=== PATIENT | male | born 1935 | race Caucasian/White ===

== ENCOUNTER 2019-06-19 08:45 | Outpatient (RCR) | payer MEDICARE, OTHER, SELFPAY ==
--- NOTE | 2019-06-19 08:50 | USCV_ITS ---
LatriciaAndi dumont Age: 84 Gender: M : 1935 Exam Date: 06/19/2019 09:12 Ordering Phys: Josefina Braga Technologist: Miller Hawkins [place]am [place] [facility] [place]: HISTORY: PROCEDURES: Bilateral duplex Venous Insufficiency study of the Deep and Superficial systems was carried out according to normal protocol with the patient in supine positon for deep system and dependent position for the superficial system. FINDINGS: All deep veins demonstrated compressibility without evidence of intraluminal thrombus or increased echogenicity. Spectral analysis of Doppler signals demonstrates normal response to compression maneuvers indicating patency without obstruction. Reflux determinations were made with the patient in the dependent position, the weight being on the contralateral leg. Vein measurements and reflux times are listed below were applicable. THERE IS SIGNIFICANT DEEP VEIN REFLUX IN THE BOTH LEGS. THERE IS SIGNIFICANT REFLUX IN LT GSAPH BUT VEINS ARE TO SMALL TO PASS ABLATION CATHITER CONCLUSIONS 1. Significant venous reflux of greater than 1000 ms were noted at the femoral and popliteal veins bilaterally. 2. Significant venous reflux of greater than 500 ms were noted at the left saphenofemoral junction and below-knee greater saphenous vein segments. 3. Small to medium caliber vein bilaterally 4. The reflux time, depth from the surface and the venous dimensions as mentioned above Dr Edilia Oseguera MD [facility] (Electronically Signed) Final Date: 19 June 2019 17:52 S
== END 2019-06-19 23:59 | disposition home or self-care (01) ==
LOC: RAD 08:45
PROVIDERS: Family Provider Family Medicine; PCP Family Medicine; Visit Provider Nurse Practitioner Family
DX: I87.2 Venous insufficiency (chronic) (peripheral) (principal); L97.312 Non-pressure chronic ulcer of right ankle with fat layer exposed; M79.604 Pain in right leg; M79.605 Pain in left leg
CPT/HCPCS: 93970; 99204; G0463

== ENCOUNTER 2019-06-22 08:37 | Outpatient (CLI) | payer MEDICARE, OTHER, SELFPAY ==
--- NOTE | 2019-06-22 08:52 | USCV_ITS ---
Andi Rome Age: 84 Gender: M : 1935 Exam Date: 06/22/2019 08:48 Ordering Phys: Josefina Braga RN Technologist: Exam [place] [facility] [place]ication: PAIN REDNESS NON HEALING ULCER RIGHT LEFT Brachial 166.00 mmHg Brachial 174.00 mmHg FINDINGS Supernormal resting ABIs and TBIs bilaterally PVR waveforms showing blunting of the dicrotic notch CONCLUSIONS Features suggesting extensive arterial sclerosis No significant arterial obstruction Dr Edilia Oseguera MD [facility] (Electronically Signed) Final Date: 22 June 2019 20:53 S
== END 2019-06-22 08:38 | disposition home or self-care (01) ==
LOC: RAD 08:43
PROVIDERS: Family Provider Family Medicine; PCP Family Medicine; Visit Provider Nurse Practitioner Family
DX: R52 Pain, unspecified (principal); L53.9 Erythematous condition, unspecified; L98.499 Non-pressure chronic ulcer of skin of other sites with unspecified severity
CPT/HCPCS: 93923

== ENCOUNTER 2019-07-15 08:48 | Outpatient (RCR) | payer MEDICARE, OTHER, SELFPAY | END 2019-07-18 23:59 | disposition home or self-care (01) | LOC: WOUND 08:48 | PROVIDERS: Family Provider Family Medicine; PCP Family Medicine; Visit Provider Nurse Practitioner Family | DX: I87.2 Venous insufficiency (chronic) (peripheral) (principal); L97.312 Non-pressure chronic ulcer of right ankle with fat layer exposed | CPT/HCPCS: 11042; 29581; 87070; 87077; 87176; 87186; 87205; 99214 ==

== ENCOUNTER 2019-08-13 08:33 | Outpatient (RCR) | payer MEDICARE, OTHER, SELFPAY | END 2019-08-18 23:59 | disposition home or self-care (01) | LOC: WOUND 08:33 | PROVIDERS: Family Provider Family Medicine; PCP Family Medicine; Visit Provider Nurse Practitioner Family | DX: L97.819 Non-pressure chronic ulcer of other part of right lower leg with unspecified severity (principal) | CPT/HCPCS: 11055; 29581; 99211; 99213; 99214; A6545; G0463 ==

== ENCOUNTER → 2019-08-20 14:34 | Outpatient (BNVA) | payer MEDICARE, OTHER, SELFPAY | PROVIDERS: Family Provider Family Medicine; PCP Family Medicine; Visit Provider Urology | DX: R33.9 Retention of urine, unspecified (principal); N39.0 Urinary tract infection, site not specified; N99.114 Postprocedural urethral stricture, male, unspecified | CPT/HCPCS: 81001 ==

== ENCOUNTER 2019-08-27 08:29 | Outpatient (RCR) | payer MEDICARE, OTHER, SELFPAY | END 2019-09-17 23:59 | disposition home or self-care (01) | LOC: WOUND 08:29 | PROVIDERS: Family Provider Family Medicine; PCP Family Medicine; Visit Provider Nurse Practitioner Family | DX: Z09 Encounter for follow-up examination after completed treatment for conditions other than malignant neoplasm (principal) | CPT/HCPCS: 99212 ==

== ENCOUNTER 2019-09-14 06:25 | Emergency (ER) | payer MEDICARE, OTHER, SELFPAY ==
[2019-09-14 06:33] VITALS: BP 155/88; PULSE 77; RESP 16; TEMP 36.5; O2SAT 99; BMI 30.5
--- NOTE | 2019-09-14 06:44 | W.ED.FALL ---
HPI - Fall General: Chief Complaint: Fall Stated Complaint: FALL, LAC TO RIGHT ARM Time Seen by Provider: 09/14/19 06:40 History of Present Illness: HPI Narrative: 84 yo male comes in today after falling out of bed. He was trying to get out of bed and got caught up in the sheets states he was tangled and he fell his left arm hit and nightstand adjacent to the bed and he has a skin tear on it he is on Coumadin. He was rechecked about 1 week ago and said it was normal he made no adjustments at that time he did not strike his head he did not lose consciousness he denies any other injuries besides the skin tear on the left forearm. He is unsure of his last tetanus shot. Associated symptoms-after fall: Denies abdominal pain or chest pain Review of Systems Const: Denies: fever, chills, body aches, change in appetite, fatigue or malaise ENMT: Denies: throat pain, ear pain, nasal discharge or nasal congestion Card: Denies: chest pain, edema, shortness of breath on exertion or shortness of breath when lying down Resp: Denies: shortness of breath, productive cough or non-productive cough GI: Denies: abdominal pain, nausea, vomiting, vomiting blood, coffee grounds in vomit, diarrhea, constipation, bloating, blood in stool or black tarry stool : Denies: flank pain, painful urination, urinary frequency or urinary urgency Skin/Breast: Denies: rash or itching PFS ED PFSH: Social History Smoking and tobacco status: never smoked Alcohol intake: never Marital status: Current occupational status: retired History of recent travel: No Physical Exam Const: COMMON NORMALS: no apparent distress GENERAL APPEARANCE: cooperative and comfortable ORIENTATION/CONSCIOUSNESS: Yes awake, Yes oriented to person, Yes oriented to place and Yes oriented to time HENMT: COMMON NORMALS: normocephalic, head/scalp atraumatic, hearing grossly normal bilaterally, external ears normal, EAC's normal, TM's normal bilaterally, nasal mucous membranes and turbinates normal, moist oral mucous membranes and oropharynx normal HEAD & SCALP: normocephalic and atraumatic NOSE: nasal mucous membranes and turbinates normal EXTERNAL EAR: Yes external ears normal EXTERNAL AUDITORY CANAL: EAC's normal TYMPANIC MEMBRANE: TM's normal bilaterally Eye: COMMON NORMALS: PERRL, EOMs intact bilaterally, conjunctivae normal and no scleral icterus CONJUNCTIVA: Yes conjunctivae normal PUPIL: Yes PERRL Neck/C-Spine: COMMON NORMALS: full ROM, no lymphadenopathy, supple and no JVD Lymph: LYMPHATIC: no lymphadenopathy noted and no lymphedema noted Resp: COMMON NORMALS: normal respiratory effort, no retractions, no use of accessory muscles and clear to auscultation bilaterally AUSCULTATION: clear to auscultation bilaterally Cardio: COMMON NORMALS: no JVD, regular rate, regular rhythm and no murmurs RATE: regular rate RHYTHM: regular rhythm GI: COMMON NORMALS: soft to palpation and no hepatosplenomegaly AUSCULTATION: Yes normoactive bowel sounds PALPATION: Yes soft, No tender, No guarding and Yes no hepatosplenomegaly Extremity: COMMON NORMALS: normal to inspection, normal capillary refill, no clubbing, cyanosis or edema, no calf tenderness and no pedal edema NARRATIVE EXTREMITY EXAM: Skin tears on the left forearm no active bleeding. Steri-Strips applied good approximation of wound edges large avulsed part appears to be nonviable but was Steri-Stripped back into place to maximize potential. Neuro: SENSORIUM/ORIENTATION: Yes oriented to person, Yes oriented to place and Yes oriented to time Skin: COMMON NORMALS: no rashes or lesions noted GENERAL SKIN EXAM: no rashes or lesions noted Course Vital Signs: Vital signs: Vital Signs Temperature 97.7 F 09/14/19 06:33 Pulse Rate 72 09/14/19 07:43 Respiratory Rate 18 09/14/19 07:43 Blood Pressure 143/82 09/14/19 07:09 Pulse Oximetry 100 09/14/19 07:43 MDM - Fall MDM Narrative: Medical decision making narrative: X-rays negative for fracture reviewed radiologist report. He did not strike his head is no specific other complaints he had a recent INR that was normal I do not feel at this point that a repeat INR is needed she has worsening problems or change in symptoms can return otherwise follow-up as needed. Discharge Plan Discharge Patient Disposition: Home, Self-Care Clinical Impression: Fall against object, Skin tear of forearm without complication Condition: Stable Prescriptions: No Action ascorbate calcium (vitamin C) 500 mg tablet See Rx Instructions PO BID RF: 0 clonazepam 0.5 mg tablet 0.5 mg PO .prn RF: 0 warfarin 5 mg tablet See Rx Instructions PO DAILY RF: 0 allopurinol 300 mg tablet 300 mg PO DAILY RF: 0 famotidine 20 mg tablet 20 mg PO BID RF: 0 prednisone 10 mg tablet 10 mg PO DAILY RF: 0 azathioprine 50 mg tablet 50 mg PO DAILY RF: 0 gabapentin 100 mg capsule 100 mg PO TID RF: 0 levofloxacin 250 mg tablet 250 mg PO DAILY Qty: 7 RF: 1 Discharge Orders: Discharge Order (Routine); Ordered 09/14/19 Ordered By: Low Andrea Referrals: Kamran Abdi MD [Primary Care Provider] - Discharge Diet: Usual diet Discharge Activity: Increase activity as tolerated Patient Instructions: Skin Tear (ED) Activity Restrictions/Additional Instructions: Follow-up with your primary care doctor as needed Discharge Date/Time: 09/14/19 08:13 Coding Level of Care Code ED Certified Personal Trainer for Dean Laird
[2019-09-14 06:50] VITALS: BP 150/82; RESP 18
--- NOTE | 2019-09-14 06:55 | XR_ITS ---
WS: [id number] RIGHT WRIST: 3 VIEW(S) TECHNIQUE: PA, oblique and lateral. HISTORY: fall COMPARISON: None available. No acute fracture or dislocation. Well-corticated osseous densities distal to the ulna with narrowing of the distal radial ulnar joint. No acute fracture. Distal radial artery calcification. No soft tissue swelling. XR/XR wrist RT min 3V* [id number] IMPRESSION: Degenerative changes and prior trauma. No acute fracture.
--- NOTE | 2019-09-14 06:55 | XR_ITS ---
WS: [id number] RIGHT FOREARM 2 VIEWS HISTORY: fall COMPARISON: 11/22/2015 No fracture or dislocation. No foreign body or joint effusion. Well-corticated osseous densities seen on the lateral projection over the proximal forearm are probab ly from old trauma. XR/XR forearm RT 2V [id number] IMPRESSION: No acute fracture.
[2019-09-14] MEDS: tetanus-dipt-pertussis 0.5 mL SDV IM (07:08)
[2019-09-14 07:09] VITALS: BP 143/82; PULSE 76; RESP 17; O2SAT 98
--- NOTE | 2019-09-14 07:22 | PC.NURSE ---
XR performed at bedside
[2019-09-14 07:43] VITALS: PULSE 72; RESP 18; O2SAT 100
[2019-09-14 08:12] VITALS: BP 112/65; PULSE 74; RESP 17; O2SAT 98
== END 2019-09-14 08:13 | disposition home or self-care (01) ==
PROVIDERS: Emergency Provider Family Medicine; Family Provider Family Medicine; PCP Family Medicine
DX: S51.812A Laceration without foreign body of left forearm, initial encounter (principal); W06.XXXA Fall from bed, initial encounter; Z79.01 Long term (current) use of anticoagulants; Z23 Encounter for immunization
CPT/HCPCS: 12345; 73090; 73110; 90715; 96372; 99281; 99283; A6446

== ENCOUNTER → 2020-01-04 11:19 | Outpatient (BNVA) | payer MEDICARE, OTHER, SELFPAY | PROVIDERS: Family Provider Family Medicine; PCP Family Medicine; Visit Provider Nurse Practitioner Family | DX: N39.0 Urinary tract infection, site not specified (principal); N99.114 Postprocedural urethral stricture, male, unspecified | CPT/HCPCS: 80053; 81001; 87086; 87106 ==

== ENCOUNTER 2020-01-06 13:43 | Outpatient (CLI) | payer MEDICARE, OTHER, SELFPAY | END 2020-01-06 13:44 | disposition home or self-care (01) | LOC: WOUND 13:48 | PROVIDERS: Family Provider Family Medicine; PCP Family Medicine; Visit Provider Nurse Practitioner Family | DX: I89.0 Lymphedema, not elsewhere classified (principal) | CPT/HCPCS: 99212 ==

== ENCOUNTER → 2020-03-31 09:43 | Outpatient (BNVA) | payer MEDICARE, OTHER, SELFPAY | PROVIDERS: Family Provider Family Medicine; PCP Family Medicine; Visit Provider Urology | DX: N39.0 Urinary tract infection, site not specified (principal); N99.114 Postprocedural urethral stricture, male, unspecified; B49 Unspecified mycosis | CPT/HCPCS: 80053; 81003; 87086; 87106 ==

== ENCOUNTER 2020-04-22 10:52 | Outpatient (CLI) | payer MEDICARE, OTHER, SELFPAY ==
[2020-04-22 11:54] LABS: INR 5.99 (0.8-1.2)
== END 2020-04-22 10:53 | disposition home or self-care (01) ==
PROVIDERS: PCP Family Medicine; Visit Provider Family Medicine
DX: Z79.01 Long term (current) use of anticoagulants (principal); N39.0 Urinary tract infection, site not specified
CPT/HCPCS: 81003; 85610; 87077; 87086; 87184

== ENCOUNTER → 2020-05-02 11:35 | Outpatient (BNVA) | payer MEDICARE, OTHER, SELFPAY | PROVIDERS: PCP Family Medicine; Visit Provider Urology | DX: N39.0 Urinary tract infection, site not specified (principal); B49 Unspecified mycosis | CPT/HCPCS: 81003; 87086 ==

== ENCOUNTER → 2020-05-06 09:42 | Outpatient (BNVA) | payer MEDICARE, OTHER, SELFPAY | PROVIDERS: PCP Family Medicine; Visit Provider Urology | DX: N39.0 Urinary tract infection, site not specified (principal); N99.114 Postprocedural urethral stricture, male, unspecified | CPT/HCPCS: 81003 ==

== ENCOUNTER 2020-11-02 08:01 | Outpatient (CLI) | payer MEDICARE, OTHER, SELFPAY | END 2020-11-02 08:02 | disposition home or self-care (01) | LOC: WOUND 08:05 | PROVIDERS: PCP Family Medicine; Visit Provider Thoracic Surgery (Cardiothoracic Vascular Surgery) | DX: L97.312 Non-pressure chronic ulcer of right ankle with fat layer exposed (principal) | CPT/HCPCS: 11042; G0463 ==

== ENCOUNTER 2020-11-04 15:21 | Outpatient (CLI) | payer MEDICARE, OTHER, SELFPAY | END 2020-11-04 15:22 | disposition home or self-care (01) | LOC: WOUND 15:22 | PROVIDERS: PCP Family Medicine; Visit Provider Surgery | DX: L97.319 Non-pressure chronic ulcer of right ankle with unspecified severity (principal) | CPT/HCPCS: 29581 ==

== ENCOUNTER 2020-11-08 07:59 | Outpatient (CLI) | payer MEDICARE, OTHER, SELFPAY | END 2020-11-08 08:00 | disposition home or self-care (01) | LOC: WOUND 08:01 | PROVIDERS: PCP Family Medicine; Visit Provider Thoracic Surgery (Cardiothoracic Vascular Surgery) | DX: I87.2 Venous insufficiency (chronic) (peripheral) (principal); L97.312 Non-pressure chronic ulcer of right ankle with fat layer exposed | CPT/HCPCS: 11042; 36415; 80053; 84134 ==

== ENCOUNTER 2020-11-08 14:10 | Outpatient (CLI) | payer MEDICARE, OTHER, SELFPAY ==
[2020-11-08 14:54] LABS: Alanine Aminotransferase 24 U/L (0-41); Albumin Level 3.1 g/dL (3.5-5.2); Alkaline Phosphatase 123 IU/L (40-130); Anion Gap 12.1 (5-19); Aspartate Amino Transferase 32 U/L (0-40); Blood Urea Nitrogen 22 mg/dL (8-23); Calcium 8.3 mg/dL (8.5-10.5); Carbon Dioxide 26 mmol/L (22-29); Chloride 105 mmol/L (98-107); Globulin 2.7 g/dL (1.3-4.6); Glucose 210 mg/dL (65-115); Osmolality Calculated 298 mOsm/kg (285-295); Potassium 4.1 mmol/L (3.5-5.1); Sodium 139 mmol/L (136-145); Total Bilirubin 1.7 mg/dL (0.15-1.2); Total Protein 5.8 g/dL (6.6-8.7)
[2020-11-08 18:51] LABS: Prealbumin 13.5 mg/dL (20-40)
== END 2020-11-08 14:11 | disposition home or self-care (01) ==
PROVIDERS: PCP Family Medicine; Visit Provider Thoracic Surgery (Cardiothoracic Vascular Surgery)
DX: I87.2 Venous insufficiency (chronic) (peripheral) (principal); L97.312 Non-pressure chronic ulcer of right ankle with fat layer exposed
CPT/HCPCS: 36415; 80053; 84134

== ENCOUNTER 2020-11-15 08:01 | Outpatient (CLI) | payer MEDICARE, OTHER, SELFPAY | END 2020-11-15 08:02 | disposition home or self-care (01) | LOC: WOUND 08:02 | PROVIDERS: PCP Family Medicine; Visit Provider Thoracic Surgery (Cardiothoracic Vascular Surgery) | DX: I87.2 Venous insufficiency (chronic) (peripheral) (principal); L97.312 Non-pressure chronic ulcer of right ankle with fat layer exposed | CPT/HCPCS: 11042 ==

== ENCOUNTER 2020-11-22 08:29 | Outpatient (CLI) | payer MEDICARE, OTHER, SELFPAY | END 2020-11-22 08:30 | disposition home or self-care (01) | LOC: WOUND 08:32 | PROVIDERS: PCP Family Medicine; Visit Provider Thoracic Surgery (Cardiothoracic Vascular Surgery) | DX: I87.2 Venous insufficiency (chronic) (peripheral) (principal); L97.312 Non-pressure chronic ulcer of right ankle with fat layer exposed | CPT/HCPCS: 11042 ==

== ENCOUNTER 2020-12-02 10:59 | Outpatient (CLI) | payer MEDICARE, OTHER, SELFPAY | END 2020-12-02 11:00 | disposition home or self-care (01) | LOC: WOUND 11:03 | PROVIDERS: PCP Family Medicine; Visit Provider Surgery | DX: I87.2 Venous insufficiency (chronic) (peripheral) (principal); L97.312 Non-pressure chronic ulcer of right ankle with fat layer exposed | CPT/HCPCS: 11042 ==

== ENCOUNTER 2020-12-06 11:06 | Outpatient (CLI) | payer MEDICARE, OTHER, SELFPAY | END 2020-12-06 11:07 | disposition home or self-care (01) | LOC: WOUND 11:07 | PROVIDERS: PCP Family Medicine; Visit Provider Thoracic Surgery (Cardiothoracic Vascular Surgery) | DX: I87.2 Venous insufficiency (chronic) (peripheral) (principal); L97.312 Non-pressure chronic ulcer of right ankle with fat layer exposed | CPT/HCPCS: 97597 ==

== ENCOUNTER 2020-12-13 08:21 | Outpatient (CLI) | payer MEDICARE, OTHER, SELFPAY | END 2020-12-13 08:22 | disposition home or self-care (01) | LOC: WOUND 08:22 | PROVIDERS: PCP Family Medicine; Visit Provider Nurse Practitioner Family | DX: I87.2 Venous insufficiency (chronic) (peripheral) (principal); L97.312 Non-pressure chronic ulcer of right ankle with fat layer exposed | CPT/HCPCS: 15271; C1849 ==

== ENCOUNTER 2020-12-20 08:45 | Outpatient (CLI) | payer MEDICARE, OTHER, SELFPAY | END 2020-12-20 08:46 | disposition home or self-care (01) | LOC: WOUND 08:50 | PROVIDERS: PCP Family Medicine; Visit Provider Thoracic Surgery (Cardiothoracic Vascular Surgery) | DX: I87.2 Venous insufficiency (chronic) (peripheral) (principal); L97.312 Non-pressure chronic ulcer of right ankle with fat layer exposed | CPT/HCPCS: 29581 ==

== ENCOUNTER 2020-12-23 07:54 | Outpatient (CLI) | payer MEDICARE, OTHER, SELFPAY | END 2020-12-23 07:55 | disposition home or self-care (01) | LOC: WOUND 07:55 | PROVIDERS: PCP Family Medicine; Visit Provider Surgery | DX: I87.2 Venous insufficiency (chronic) (peripheral) (principal); L97.312 Non-pressure chronic ulcer of right ankle with fat layer exposed | CPT/HCPCS: 29581 ==

== ENCOUNTER 2020-12-28 08:06 | Outpatient (CLI) | payer MEDICARE, OTHER, SELFPAY | END 2020-12-28 08:07 | disposition home or self-care (01) | LOC: WOUND 08:07 | PROVIDERS: PCP Family Medicine; Visit Provider Thoracic Surgery (Cardiothoracic Vascular Surgery) | DX: I87.2 Venous insufficiency (chronic) (peripheral) (principal); L97.312 Non-pressure chronic ulcer of right ankle with fat layer exposed | CPT/HCPCS: 11042 ==

== ENCOUNTER 2021-01-04 08:11 | Outpatient (CLI) | payer MEDICARE, OTHER, SELFPAY | END 2021-01-04 08:12 | disposition home or self-care (01) | LOC: WOUND 08:12 | PROVIDERS: PCP Family Medicine; Visit Provider Thoracic Surgery (Cardiothoracic Vascular Surgery) | DX: I87.2 Venous insufficiency (chronic) (peripheral) (principal); L97.312 Non-pressure chronic ulcer of right ankle with fat layer exposed | CPT/HCPCS: 11042 ==

== ENCOUNTER 2021-01-11 08:13 | Outpatient (CLI) | payer MEDICARE, OTHER, SELFPAY | END 2021-01-11 08:14 | disposition home or self-care (01) | LOC: WOUND 08:14 | PROVIDERS: PCP Family Medicine; Visit Provider Nurse Practitioner Family | DX: I96 Gangrene, not elsewhere classified (principal); I87.2 Venous insufficiency (chronic) (peripheral); L97.312 Non-pressure chronic ulcer of right ankle with fat layer exposed | CPT/HCPCS: 11042 ==

== ENCOUNTER 2021-01-18 08:06 | Outpatient (CLI) | payer MEDICARE, OTHER, SELFPAY | END 2021-01-18 08:07 | disposition home or self-care (01) | LOC: WOUND 08:07 | PROVIDERS: PCP Family Medicine; Visit Provider Thoracic Surgery (Cardiothoracic Vascular Surgery) | DX: I96 Gangrene, not elsewhere classified (principal); I87.2 Venous insufficiency (chronic) (peripheral); L97.312 Non-pressure chronic ulcer of right ankle with fat layer exposed | CPT/HCPCS: 11042 ==

== ENCOUNTER 2021-01-18 09:10 | Outpatient (CLI) | payer MEDICARE, OTHER, SELFPAY ==
--- NOTE | 2021-01-18 09:17 | XR_ITS ---
WS: [id number] PROCEDURE: XR chest 2V* [id number] CLINICAL INFORMATION: RIGHT UPPER EXTREMITY SWELLING COMPARISON: June 12, 2018 FINDINGS: Heart: Cardiomegaly. Aortic calcification Lungs: Moderate chronic emphysematous changes. No acute pulmonary infiltrates. No focal pneumonia or pleural fluid. Slight atelectasis left costophrenic angle. Bones: Osteopenia. Mild thoracic kyphosis. Ankylosis thoracic spine. Cholecystectomy clips. XR/XR chest 2V* [id number] IMPRESSION: Cardiomegaly. No acute pulmonary infiltrates.
== END 2021-01-18 09:11 | disposition home or self-care (01) ==
PROVIDERS: PCP Family Medicine; Visit Provider Thoracic Surgery (Cardiothoracic Vascular Surgery)
DX: M79.89 Other specified soft tissue disorders (principal); I51.7 Cardiomegaly
CPT/HCPCS: 71046

== ENCOUNTER 2021-01-25 08:06 | Outpatient (CLI) | payer MEDICARE, OTHER, SELFPAY | END 2021-01-25 08:07 | disposition home or self-care (01) | LOC: WOUND 08:07 | PROVIDERS: PCP Family Medicine; Visit Provider Thoracic Surgery (Cardiothoracic Vascular Surgery) | DX: I87.2 Venous insufficiency (chronic) (peripheral) (principal); L97.312 Non-pressure chronic ulcer of right ankle with fat layer exposed | CPT/HCPCS: 11043 ==

== ENCOUNTER 2021-02-01 08:49 | Outpatient (CLI) | payer MEDICARE, OTHER, SELFPAY | END 2021-02-01 08:50 | disposition home or self-care (01) | LOC: WOUND 08:51 | PROVIDERS: PCP Family Medicine; Visit Provider Nurse Practitioner Family | DX: I87.2 Venous insufficiency (chronic) (peripheral) (principal); L97.312 Non-pressure chronic ulcer of right ankle with fat layer exposed | CPT/HCPCS: 11042; 87070 ==

== ENCOUNTER 2021-02-08 08:50 | Outpatient (CLI) | payer MEDICARE, OTHER, SELFPAY | END 2021-02-08 08:51 | disposition home or self-care (01) | LOC: WOUND 08:52 | PROVIDERS: PCP Family Medicine; Visit Provider Thoracic Surgery (Cardiothoracic Vascular Surgery) | DX: I87.2 Venous insufficiency (chronic) (peripheral) (principal); L97.312 Non-pressure chronic ulcer of right ankle with fat layer exposed | CPT/HCPCS: 15271; Q4187 ==

== ENCOUNTER 2021-02-10 08:02 | Outpatient (CLI) | payer MEDICARE, OTHER, SELFPAY | END 2021-02-10 08:03 | disposition home or self-care (01) | LOC: WOUND 08:03 | PROVIDERS: PCP Family Medicine; Visit Provider Surgery | DX: I87.2 Venous insufficiency (chronic) (peripheral) (principal); L97.312 Non-pressure chronic ulcer of right ankle with fat layer exposed | CPT/HCPCS: 29581; A6252 ==

== ENCOUNTER 2021-02-14 12:54 | Outpatient (CLI) | payer MEDICARE, OTHER, SELFPAY | END 2021-02-14 12:55 | disposition home or self-care (01) | LOC: WOUND 12:55 | PROVIDERS: PCP Family Medicine; Visit Provider Thoracic Surgery (Cardiothoracic Vascular Surgery) | DX: I87.2 Venous insufficiency (chronic) (peripheral) (principal); L97.312 Non-pressure chronic ulcer of right ankle with fat layer exposed | CPT/HCPCS: 15271; A6250; A6252; Q4187 ==

== ENCOUNTER 2021-02-17 13:58 | Outpatient (CLI) | payer MEDICARE, OTHER, SELFPAY | END 2021-02-17 13:59 | disposition home or self-care (01) | LOC: WOUND 14:00 | PROVIDERS: PCP Family Medicine; Visit Provider Nurse Practitioner Family | DX: I87.2 Venous insufficiency (chronic) (peripheral) (principal); L97.312 Non-pressure chronic ulcer of right ankle with fat layer exposed | CPT/HCPCS: 29581; A6252 ==

== ENCOUNTER 2021-02-21 10:33 | Outpatient (CLI) | payer MEDICARE, OTHER, SELFPAY | END 2021-02-21 10:34 | disposition home or self-care (01) | LOC: WOUND 10:35 | PROVIDERS: PCP Family Medicine; Visit Provider Thoracic Surgery (Cardiothoracic Vascular Surgery) | DX: I87.2 Venous insufficiency (chronic) (peripheral) (principal); L97.312 Non-pressure chronic ulcer of right ankle with fat layer exposed | CPT/HCPCS: 15271; Q4187 ==

== ENCOUNTER 2021-02-24 13:58 | Outpatient (CLI) | payer MEDICARE, OTHER, SELFPAY | END 2021-02-24 13:59 | disposition home or self-care (01) | LOC: WOUND 13:59 | PROVIDERS: PCP Family Medicine; Visit Provider Surgery | DX: I87.2 Venous insufficiency (chronic) (peripheral) (principal); L97.312 Non-pressure chronic ulcer of right ankle with fat layer exposed | CPT/HCPCS: 29581; A6252 ==

== ENCOUNTER 2021-02-28 10:54 | Outpatient (CLI) | payer MEDICARE, OTHER, SELFPAY | END 2021-02-28 10:55 | disposition home or self-care (01) | LOC: WOUND 10:57 | PROVIDERS: PCP Family Medicine; Visit Provider Thoracic Surgery (Cardiothoracic Vascular Surgery) | DX: I87.2 Venous insufficiency (chronic) (peripheral) (principal); L97.312 Non-pressure chronic ulcer of right ankle with fat layer exposed | CPT/HCPCS: 15271; Q4187 ==

== ENCOUNTER 2021-03-03 13:55 | Outpatient (CLI) | payer MEDICARE, OTHER, SELFPAY | END 2021-03-03 13:56 | disposition home or self-care (01) | LOC: WOUND 13:56 | PROVIDERS: PCP Family Medicine; Visit Provider Nurse Practitioner Family | DX: I87.2 Venous insufficiency (chronic) (peripheral) (principal); L97.312 Non-pressure chronic ulcer of right ankle with fat layer exposed | CPT/HCPCS: 29581; A6252 ==

== ENCOUNTER 2021-03-07 10:35 | Outpatient (CLI) | payer MEDICARE, OTHER, SELFPAY | END 2021-03-07 10:36 | disposition home or self-care (01) | LOC: WOUND 10:37 | PROVIDERS: PCP Family Medicine; Visit Provider Thoracic Surgery (Cardiothoracic Vascular Surgery) | DX: I87.2 Venous insufficiency (chronic) (peripheral) (principal); L97.312 Non-pressure chronic ulcer of right ankle with fat layer exposed | CPT/HCPCS: 15271; 29581; A6250; A6251; Q4187 ==

== ENCOUNTER 2021-03-10 14:45 | Outpatient (CLI) | payer MEDICARE, OTHER, SELFPAY | END 2021-03-10 14:46 | disposition home or self-care (01) | LOC: WOUND 14:46 | PROVIDERS: PCP Family Medicine; Visit Provider Surgery | DX: I87.2 Venous insufficiency (chronic) (peripheral) (principal); L97.312 Non-pressure chronic ulcer of right ankle with fat layer exposed | CPT/HCPCS: 29581; A6252 ==

== ENCOUNTER 2021-03-14 10:26 | Outpatient (CLI) | payer MEDICARE, OTHER, SELFPAY | END 2021-03-14 10:27 | disposition home or self-care (01) | LOC: WOUND 10:27 | PROVIDERS: PCP Family Medicine; Visit Provider Thoracic Surgery (Cardiothoracic Vascular Surgery) | DX: I87.2 Venous insufficiency (chronic) (peripheral) (principal); L97.312 Non-pressure chronic ulcer of right ankle with fat layer exposed | CPT/HCPCS: 11042; 15271; 29581; A6250; A6252; Q4187 ==

== ENCOUNTER 2021-03-17 15:09 | Outpatient (CLI) | payer MEDICARE, OTHER, SELFPAY | END 2021-03-17 15:10 | disposition home or self-care (01) | LOC: WOUND 15:11 | PROVIDERS: PCP Family Medicine; Visit Provider Surgery | DX: I87.2 Venous insufficiency (chronic) (peripheral) (principal); L97.312 Non-pressure chronic ulcer of right ankle with fat layer exposed | CPT/HCPCS: 29581 ==

== ENCOUNTER 2021-03-18 17:24 | Inpatient (IN) | payer MEDICARE, OTHER, SELFPAY ==
[2021-03-18 17:36] VITALS: BP 124/80; PULSE 99; RESP 18; TEMP 37.1
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
--- NOTE | 2021-03-18 17:43 | CTR_ITS ---
PROCEDURE INFORMATION: Exam: CT Head Without Contrast Exam date and time: 03/18/2021 5:43 PM Age: 85 years old Clinical indication: Injury or trauma; Blunt trauma (contusions or hematomas); Without loss of consciousness; Patient HX: Backwards fall from standing TECHNIQUE: Imaging protocol: Computed tomography of the head without contrast. Radiation optimization: All CT scans at this facility use at least one of these dose optimization techniques: automated exposure control; mA and/or kV adjustment per patient size (includes targeted exams where dose is matched to clinical indication); or iterative reconstruction. COMPARISON: CT head wo con* [id number] 06/12/2018 10:11 AM RADIATION DOSE METRICS: Total DLP (mGy-cm): 449.04 FINDINGS: Brain: Mild atrophy and mild white matter chronic microvascular changes are noted. No hemorrhage or evidence of acute infarction is seen. Cerebral ventricles: No ventriculomegaly. Paranasal sinuses: Visualized sinuses are unremarkable. No fluid levels. Mastoid air cells: Visualized mastoid air cells are well aerated. Bones/joints: Unremarkable. No acute fracture. Soft tissues: No significant soft tissue swelling. CT/CT head wo con* [id number] IMPRESSION: No acute intracranial abnormality. Radiation Dose CTDIVOL = (mGy): DLP = 449.04 (mGy-cm)
--- NOTE | 2021-03-18 17:43 | CTR_ITS ---
PROCEDURE INFORMATION: Exam: CT Cervical Spine Without Contrast Exam date and time: 03/18/2021 5:43 PM Age: 85 years old Clinical indication: Injury or trauma; Blunt trauma; Prior surgery; Surgery date: 6+ months; Surgery type: C6-7 acdf; Patient HX: Backwards fall from standing TECHNIQUE: Imaging protocol: Computed tomography images of the cervical spine without contrast. Radiation optimization: All CT scans at this facility use at least one of these dose optimization techniques: automated exposure control; mA and/or kV adjustment per patient size (includes targeted exams where dose is matched to clinical indication); or iterative reconstruction. COMPARISON: CT Cervical Spine wo* [id number] 06/12/2018 10:14 AM RADIATION DOSE METRICS: Total DLP (mGy-cm): 964.81 FINDINGS: Vertebrae: C6-C7 cervical fusion changes are appreciated. 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 No acute fracture is visualized. Mild kyphotic angulation is seen in the lower cervical spine at the C6-C7 region. Soft tissues: Unremarkable. CT/CT cervical spin wo con* [id number] IMPRESSION: No acute cervical spine fracture is seen. Radiation Dose CTDIVOL = (mGy): DLP = 964.81 (mGy-cm)
--- NOTE | 2021-03-18 17:46 | CTR_ITS ---
PROCEDURE INFORMATION: Exam: CT Chest With Contrast; Diagnostic Exam date and time: 03/18/2021 5:46 PM Age: 85 years old Clinical indication: Injury or trauma; Generalized; Blunt trauma (contusions or hematomas); Patient HX: Backwards fall from standing C/O upper back pain; Additional info: Fall, anticoagulated, mid back pain TECHNIQUE: Imaging protocol: Diagnostic computed tomography of the chest with contrast. Total images: 557 Radiation optimization: All CT scans at this facility use at least one of these dose optimization techniques: automated exposure control; mA and/or kV adjustment per patient size (includes targeted exams where dose is matched to clinical indication); or iterative reconstruction. Contrast material: OMNI 300; Contrast volume: 96 ml; Contrast route: INTRAVENOUS (IV); COMPARISON: CT abdomen pelvis w con* [id number] 06/12/2018 12:07 PM RADIATION DOSE METRICS: Total DLP (mGy-cm): 2312.04 FINDINGS: Lungs: No visible active interstitial or alveolar airspace disease. Calcified granulomas of antecedent disease. Mild senile fibrosis. Mild dependent atelectasis. Pleural spaces: No pneumothorax. No pleural effusion. No visible hemothorax. Heart: Cardiac size within normal limits. No visible pericardial effusion or hemopericardium. Moderately advanced coronary artery disease. Aorta: The thoracic aorta is nonaneurysmal. No visible intimal flap or dissection. Mild arteriosclerosis. Lymph nodes: No visible active mediastinal or hilar lymphadenopathy. 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 The fracture extends into the pedicles bilaterally. No visible retropulsion fragment that would result in central canal stenosis visible. There are findings of potential moderate central canal stenosis at the T10/T11 level from posterior facet arthrosis and probable ligamentum flavum hypertrophy which would be better assessed with MRI. Diffuse osteopenia/osteoporosis. Diffuse idiopathic skeletal hyperostosis. Previous cervical fusion. Mild scoliotic curvature. Soft tissues: No visible soft tissue contusion, hematoma, or seroma. Other findings: Obesity. IMPRESSION: 1. Examination reveals a hyperextension transverse fracture through the T11 vertebral body with associated transection of the anterior longitudinal ligament. The fracture extends into the pedicles bilaterally. This is unstable fracture. 2. No visible retropulsion fragment that would result in central canal stenosis visible. 3. There are findings of potential moderate central canal stenosis at the T10/T11 level from posterior facet arthrosis and probable ligamentum flavum hypertrophy which would be better assessed with MRI. 4. Diffuse idiopathic skeletal hyperostosis. PROCEDURE INFORMATION: Exam: CT Abdomen And Pelvis With Contrast Exam date and time: 03/18/2021 5:46 PM Age: 85 years old Clinical indication: Injury or trauma; Generalized; Blunt trauma (contusions or hematomas); Patient HX: Backwards fall from standing C/O upper back pain; Additional info: Fall, anticoagulated, mid back pain TECHNIQUE: Imaging protocol: Computed tomography of the abdomen and pelvis with contrast. Radiation optimization: All CT scans at this facility use at least one of these dose optimization techniques: automated exposure control; mA and/or kV adjustment per patient size (includes targeted exams where dose is matched to clinical indication); or iterative reconstruction. Contrast material: OMNI 300; Contrast volume: 96 ml; Contrast route: INTRAVENOUS (IV); COMPARISON: CT abdomen pelvis w con* [id number] 06/12/2018 12:07 PM RADIATION DOSE METRICS: Total DLP (mGy-cm): 2312.04 FINDINGS: Diaphragm: Small hiatal hernia. Liver: No visible hepatic mass or cystic structure. Gallbladder and bile ducts: Status post cholecystectomy. Moderate intra and extrahepatic biliary ectasia post cholecystectomy. No visible choledocholithiasis. Pancreas: Cyst within the pancreatic tail measuring 14.5 mm. Moderate pancreatic atrophy. No visible pancreatic ductal ectasia. Spleen: Atrophic spleen. Adrenal glands: Adrenal glands unremarkable. Kidneys and ureters: No hydronephrosis or perinephric fluid. No visible nephrolithiasis. Renal arteriosclerosis. Stomach and bowel: Nonobstructive bowel pattern. No visible adynamic or reactive ileus. Very heavy fecal residue consistent with constipation. Appendix: Status post appendectomy. Intraperitoneal space: No visible pneumoperitoneum or intraperitoneal ascites. No visible hemoperitoneum. Vasculature: The abdominal aorta is nonaneurysmal. Moderate arterial sclerotic disease. Lymph nodes: Unremarkable. No enlarged lymph nodes. Urinary bladder: Unremarkable as visualized. Reproductive: Unremarkable as visualized for age. Bones/joints: Within the field of view again note of the fracture of T11 as detailed in the CT chest report. Diffuse idiopathic skeletal hyperostosis. Facet arthrosis. Osteopenia/osteoporosis. Soft tissues: Unremarkable. Other findings: Obesity. Motion artifact. CT/CT chest abd pel w con* IMPRESSION: 1. No visible blunt abdominal or pelvic trauma. 2. No visible solid or hollow viscus organ injury. 3. Again note of the T11 fracture as detailed in the CT chest examination report. 4. 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 Reimaging every 2 years for 4 years is recommended. (Reference: Jigna, 2017). 5. Constipation. REFERENCES: Jigna MARQUES, et al. Management of Incidental Pancreatic Cysts: A White Paper of the ACR Incidental Findings Committee. J Am Moriah Radiol. 2017;14(7):911-923. Radiation Dose CTDIVOL = (mGy): DLP = 2312.04~2312.04 (mGy-cm)
[2021-03-18 18:14] LABS: Basophils % 0.3 %; Eosinophils % 0.1 %; Hematocrit 32.4 % (42.0-52.0); Hemoglobin 11.2 g/dL (11.7-16.6); Lymphocytes # 0.2 10^3/uL (0.8-4.8); Mean Corpuscular HGB Conc 34.6 g/dL (30.0-36.0); Mean Corpuscular Hemoglobin 39.9 pg (28.0-34.0); Mean Corpuscular Volume 115.3 fl (80-94); Mean Platelet Volume 12.1 fL (7.4-10.4); Monocytes # 0.5 10^3/uL (0.2-0.9); Neutrophils # 8.28 10^3/uL (1.8-7.7); Neutrophils % 90.8 %; Nucleated Red Blood Cells # 0.7 /100WBC; Nucleated Red Blood Cells % 7.2 %; Platelet Count 151 10^3/cmm (130-400); Red Blood Count 2.81 10^6/uL (4.1-5.3); Red Cell Distribution Width 16.9 % (12.1-15.1); White Blood Count 9.1 10^3/uL (4.0-10.0)
[2021-03-18 18:25] LABS: INR 1.25 (0.8-1.2)
[2021-03-18 18:26] LABS: Partial Thromboplastin Time 28.5 SECONDS (23.9-36.7)
[2021-03-18 18:32] LABS: Alanine Aminotransferase 36 U/L (0-41); Albumin Level 3.2 g/dL (3.5-5.2); Alkaline Phosphatase 137 IU/L (40-130); Anion Gap 13.5 (5-19); Aspartate Amino Transferase 40 U/L (0-40); Blood Urea Nitrogen 20 mg/dL (8-23); Calcium 8.4 mg/dL (8.5-10.5); Carbon Dioxide 26 mmol/L (22-29); Chloride 105 mmol/L (98-107); Globulin 2.9 g/dL (1.3-4.6); Glucose 209 mg/dL (65-115); Osmolality Calculated 299 mOsm/kg (285-295); Potassium 4.5 mmol/L (3.5-5.1); Sodium 140 mmol/L (136-145); Total Bilirubin 2.6 mg/dL (0.15-1.2); Total Protein 6.1 g/dL (6.6-8.7)
--- NOTE | 2021-03-18 18:50 | PC.NURSE ---
Performed wound care on pt. Cleaned with NS. Steri-strips applied. Non-adherant dressing and bandage applied.
[2021-03-18] MEDS: tetanus-dipt-pertussis 0.5 mL SDV IM (19:31)
[2021-03-18] MEDS: orphenadrine 30 mg/mL Inj 2 mL 60 MG IVP (19:31)
[2021-03-18] MEDS: fentaNYL 50 mcg/mL INJ 2mL IVP ×2 (19:31→20:19)
[2021-03-18] MEDS: iohexol 300 mg/mL 100 mL Btl IV (20:11)
[2021-03-18 20:19] VITALS: RESP 18; O2SAT 96
[2021-03-18] MEDS: HYDROmorphone 1 mg/mL INJ 1 mL IVP (20:44)
[2021-03-18 21:01] VITALS: BP 121/78; PULSE 148; RESP 16; O2SAT 99
--- NOTE | 2021-03-18 21:04 | ECG_ITS ---
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[id number] Requested By: Oscar Rajan Order Number: [id number] Jossy MD: MAYITO ADAMS Measurements Intervals [place] Rate: 153 P: AR: QRS: -26 QRSD: 97 T: 87 QT: 290 QTc: 464 Interpretive Statements ATRIAL FIBRILLATION WITH RAPID VENTRICULAR RESPONSE BORDERLINE LEFT AXIS DEVIATION [QRS AXIS < -20] INCOMPLETE RIGHT BUNDLE BRANCH BLOCK [90+ ms QRS DURATION, TERMINAL R IN V1/V2, 40+ ms S IN I/aVL/V4/V5/V6] MODERATE VOLTAGE CRITERIA FOR LVH, CONSIDER NORMAL VARIANT [MEETS CRITERIA IN ONE OF: R(aVL), S(V1), R(V5), R(V5/V6)+S(V1)] NONSPECIFIC ST & T-WAVE ABNORMALITY CRITICAL TEST RESULT Compared to ECG 06/12/2018 11:38:14 Incomplete right bundle-branch block now present Sinus rhythm no longer present T-wave abnormality still present Electronically Signed On 03-20-2021 0:11:17 CDT by MAYITO ADAMS [id number]
--- NOTE | 2021-03-18 21:18 | PC.NURSE ---
Pt began having rapid heart rate. Reported to MD. EKG performed. Cardizem ordered, given.
[2021-03-18 21:28] LABS: Troponin(5th) Baseline 42 ng/L (0-15)
[2021-03-18 21:35] LABS: Troponin 5 2HR 35.38 ng/L (0-15)
[2021-03-18 21:36] LABS: Troponin 5 2HR Delta -6.62 ABS# (0-10)
[2021-03-18 21:44] VITALS: BP 126/80; PULSE 105; RESP 18; O2SAT 99
--- NOTE | 2021-03-18 22:58 | PM.CONSULT ---
Providers/Reason For Consult Consulting Physician/Specialty*: Frase/Hospitalist Reason for Consult*: Medical management, afib, coumadin use Requesting Physician: Dr Sarkar for Dr Bowen Attending Physician: Dr Bowen Primary Care Provider: Kamran Abdi MD History of Present Illness History of Present Illness Andi Rome is a 85 year old male who presented to the emergency room with chief complaint of back pain and headache after a fall. He was carrying a bucket from the tailgate of his truck into the house. He turned around and tripped over something and fell backwards. He landed on his back and head primarily and his left arm. His was with him and saw what happened. There was no loss of consciousness. He got dizzy from the severity of the pain and had an episode of nausea with vomiting once. He continued to be nauseated after arrival. He does think he had some urinary incontinence as well after the fall because of how long he was unable to get up. The dizziness has since resolved. He denies any preceding symptoms of dizziness, chest pain, vision changes, numbness or paresthesias. He indicates it was simply an accidental fall. He was unable to get up after he fell due to pain in his back. A neighbor was eventually able to help get him up and he came in for further evaluation due to continued pain. Pain was severe. Located in the middle of his back. Worse with any attempts at movement. No shooting pains down the legs. No new numbness or paresthesias in the arms or legs. He has general discomfort everywhere at the present time. He has not had frequent falls otherwise. Work-up in the emergency room revealed a transverse fracture at T11 that was unstable. Patient is being admitted to Dr. Bowen and hospitalist consultation was requested for medical issues. While in the ER he was found to have atrial fibrillation with rapid ventricular response. He has been treated with diltiazem thus far. There is no known history of atrial fibrillation that I can discern from talking with Mr. Rome. He has had some pain medicine so he is having a little bit of difficulty focusing and answering questions. He is chronically on blood thinners because of a history of a blood clot in his legs. He has a history of colon cancer that was treated with partial resection. Denies any recurrence of this. He has been on prednisone for several years due to a history of autoimmune hepatitis. He is also on azathioprine. He has not had other fractures since then. INR in the emergency room was 1.25. History is currently limited but is obtained from talking with him and reviewing available records. Review of Systems Const: Denies: fever(s) or change in weight Eyes: Denies: change in vision ENMT: Denies: oral sores, tinnitus, disequilibrium or nasal congestion Card: Reports: edema; Denies: chest pain or palpitations Resp: Denies: dyspnea, non-productive cough, wheezing, pain on inspiration or hemoptysis GI: Reports: nausea and vomiting; Denies: abdominal pain, diarrhea or constipation : Reports: urinary incontinence; Denies: difficulty urinating or hematuria Musc: Reports: neck pain, back pain and extremity pain Skin/Breast: Reports: lesions (Right lower extremity, followed at wound care clinic, last seen 03/14/2021) Neuro: Reports: headache(s); Denies: numbness in extremities, weakness in extremities or difficulty walking Rm/Lymph: Reports: easy bruising Meds/Allergies Home Medications and Allergies Home Medications Medication Instructions Recorded Confirmed Last Taken Type allopurinol 300 mg tablet 300 mg PO DAILY 08/20/19 03/19/21 09/13/19 History ascorbate calcium (vitamin C) 500 1,000 mg PO BID 08/20/19 03/19/21 09/13/19 History mg tablet azathioprine 50 mg tablet 50 mg PO DAILY 08/20/19 03/19/21 09/13/19 History famotidine 20 mg tablet 20 mg PO BID 08/20/19 05/06/20 09/13/19 History gabapentin 100 mg capsule 100 mg PO TID 08/20/19 03/19/21 09/13/19 History warfarin 5 mg tablet See Rx Instructions PO DAILY 08/20/19 03/19/21 09/13/19 History diphenoxylate-atropine 2.5 1 tab PO Q6H PRN 03/31/20 03/19/21 Unknown History mg-0.025 mg tablet methenamine hippurate 1 gram tablet 1 g PO BID #60 tab 05/06/20 03/19/21 Unknown Rx alprazolam 0.25 mg PO BID PRN 03/19/21 03/19/21 Unknown History prednisone 10 mg PO DAILY 03/19/21 03/19/21 Unknown History Allergies Allergy/AdvReac Type Severity Reaction Status Date / Time No Known Allergies Allergy Unverified 08/20/19 14:16 Current Medications Current Medications Generic Name Dose Route Start Last Admin Trade Name Angeli PRN Reason Stop Dose Admin Diltiazem HCl 125 mg/ Sodium 125 mls @ 0 mls/hr 03/18/21 22:15 03/18/21 22:47 Chloride IV 5 mg/hr .Q0M PHILLIP 5 mls/hr Administration Protocol Per Protocol PFSH Acute PFSH: Medical History (Updated 03/19/21 @ 00:43 by Alaina Montana MD) Autoimmune hepatitis Azathioprine and prednisone Colon cancer Gout History of DVT (deep vein thrombosis) recurrent History of stress test Hypertension Recurrent UTI Urethral stricture Surgical History (Updated 03/19/21 @ 00:01 by Alaina Montana MD) H/O neck surgery H/O partial resection of colon due to cancer H/O total knee replacement right H/O transurethral resection of prostate History of bladder surgery History of cataract surgery History of cholecystectomy History of skin graft Family History Father , at age 65 Cancer lung Mother , at age 88 Alzheimer's dementia Social History (Updated 03/19/21 @ 00:57 by Alaina Montana MD) Smoking and tobacco status: never smoked Alcohol intake: never Substance/Drug Use: never Marital status: Current occupational status: retired Vitals/I&O/Wt Last Vital Signs Temp 98.7 F 03/18/21 17:36 Pulse 105 H 03/18/21 21:44 Resp 18 03/18/21 21:44 BP 126/80 03/18/21 21:44 Pulse Ox 99 03/18/21 21:44 Physical Exam Narrative: EXAM NARRATIVE: Constitutional: Asleep, arousable, tries to answer questions but cannot remember words and is a little confused HEENT: Normocephalic, tender posteriorly, extraocular movements are intact, pupils are equal, nasopharynx without rhinorrhea, oropharynx with dry membranes Respiratory: Clear to auscultation bilaterally without any rales rhonchi or wheezes noted Cardiovascular: Irregular, tachycardic rhythm Abdomen: Soft, nontender, obese, decreased bowel sounds Extremities: Left lower extremity that patient indicates is where previous DVTs have been is significantly larger than right lower extremity, right lower extremity is wrapped in dressings from wound care clinic that were placed just couple of days ago, patient has pain with movement attempts in his mid back and has to be reminded to lay back down Skin: Evidence of sun exposure, hemangiomas noted to the abdomen wall, scattered nevi, unable to visualize right lower extremity skin currently, left lower extremity with chronic stasis changes Neuro: Speech is clear despite the confusion after pain medications, face is symmetric, handgrip is equal, strength equal at both feet, sensation grossly intact to touching at the feet although differences between the right and left are difficult to ascertain, no abnormal movements, Psych: Restless, confused I believe from pain medication but trying very hard to answer questions appropriately, repetitive on answers to some questions, baseline is unknown Data Labs: Other Labs: Laboratory Results WBC 9.1 10^3/uL (4.0- 10.0) 03/18/21 18: RBC 2.81 10^6/uL (4.1 -5.3) L 03/18/21 18: Hgb 11.2 g/dL (11.7-1 6.6) L 03/18/21 18: Hct 32.4 % (42.0-52.0 ) L 03/18/21 18: MCV 115.3 fl (80-94) H 03/18/21 18:02 MCH 39.9 pg (28.0-34. 0) H 03/18/21 18: MCHC 34.6 g/dL (30.0-3 6.0) 03/18/21 18: RDW 16.9 % (12.1-15.1 ) H 03/18/21 18:02 Plt Count 151 10^3/cmm (130 -400) 03/18/21 18: MPV 12.1 fL (7.4-10.4 ) H 03/18/21 18: Neut % (Auto) 90.8 % 03/18/21 18: Lymph % (Auto) 2.0 % 03/18/21 18: [place] % (Auto) 5.0 % 03/18/21 18: Eos % (Auto) 0.1 % 03/18/21 18:02 Baso % (Auto) 0.3 % 03/18/21 18:02 Neut # (Auto) 8.28 10^3/uL (1.8 -7.7) H 03/18/21 18:02 Lymph # (Auto) 0.2 10^3/uL (0.8- 4.8) L 03/18/21 18:02 [place] # (Auto) 0.5 10^3/uL (0.2- 0.9) 03/18/21 18:02 Eos # (Auto) 0.0 10^3/uL (0.0- 0.8) 03/18/21 18:02 Baso # (Auto) 0.0 10^3/uL (0.0- 0.1) 03/18/21 18:02 Nucleated RBC % (a uto) 7.2 % 03/18/21 18:02 Nucleated RBCs # 0.7 /100WBC 03/18/21 18:02 PT 16.10 SECONDS (12 .1-14.9) H 03/18/21 18:02 INR 1.25 (0.8-1.2) H 03/18/21 18:02 APTT 28.5 SECONDS (23. 9-36.7) 03/18/21 18:02 Sodium 140 mmol/L (136-1 45) 03/18/21 18:02 Potassium 4.5 mmol/L (3.5-5 .1) 03/18/21 18:02 Chloride 105 mmol/L (98-10 7) 03/18/21 18:02 Carbon Dioxide 26 mmol/L (22-29) 03/18/21 18:02 Anion Gap 13.5 (5-19) 03/18/21 18:02 BUN 20 mg/dL (8-23) 03/18/21 18:02 Creatinine 0.8 mg/dL (0.7-1. 2) 03/18/21 18:02 GFR Calculation Not Reportable 03/18/21 18:02 Glucose 209 mg/dL (65-115 ) H 03/18/21 18:02 Calculated Osmolal ity 299 mOsm/kg (285- 295) H 03/18/21 18:02 Calcium 8.4 mg/dL (8.5-10 .5) L 03/18/21 18:02 Total Bilirubin 2.6 mg/dL (0.15-1 .2) H 03/18/21 18:02 AST 40 U/L (0-40) 03/18/21 18:02 ALT 36 U/L (0-41) 03/18/21 18:02 Alkaline Phosphata se 137 IU/L (40-130) H 03/18/21 18:02 Troponin T Baselin e 42 ng/L (0-15) H 03/18/21 18:02 Troponin T 120 Min [place] 35.38 ng/L (0-15) H 03/18/21 21:07 Delta Troponin T -6.62 ABS# (0-10) L 03/18/21 21:07 Total Protein 6.1 g/dL (6.6-8.7 ) L 03/18/21 18:02 Albumin 3.2 g/dL (3.5-5.2 ) L 03/18/21 18:02 Globulin 2.9 g/dL (1.3-4.6 ) 03/18/21 18:[address] 03/18/21 17:43 IMPRESSION: No acute cervical spine fracture is seen. Radiation Dose CTDIVOL = (mGy): DLP = 964.81 (mGy-cm) Head CT 03/18/21 17:43 IMPRESSION: No acute intracranial abnormality. Radiation Dose CTDIVOL = (mGy): DLP = 449.04 (mGy-cm) Chest/Abdomen/Pelvis CT 03/18/21 17:46 IMPRESSION: 1. Examination reveals a hyperextension transverse fracture through the T11 vertebral body with associated transection of the anterior longitudinal ligament. The fracture extends into the pedicles bilaterally. This is unstable fracture. 2. No visible retropulsion fragment that would result in central canal stenosis visible. 3. There are findings of potential moderate central canal stenosis at the T10/T11 level from posterior facet arthrosis and probable ligamentum flavum hypertrophy which would be better assessed with MRI. 4. Diffuse idiopathic skeletal hyperostosis. IMPRESSION: 1. No visible blunt abdominal or pelvic trauma. 2. No visible solid or hollow viscus organ injury. 3. Again note of the T11 fracture as detailed in the CT chest examination report. 4. 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 Reimaging every 2 years for 4 years is recommended. (Reference: Jigna, 2017). 5. Constipation. REFERENCES: Jigna MARQUES, et al. Management of Incidental Pancreatic Cysts: A White Paper of the ACR Incidental Findings Committee. J Am Moriah Radiol. 2017;14(7):911-923. Radiation Dose CTDIVOL = (mGy): DLP = 2312.04~2312.04 (mGy-cm) ADDENDUM: 03/18/212110 THIS REPORT CONTAINS FINDINGS THAT MAY BE CRITICAL TO PATIENT CARE. The findings were verbally communicated via telephone conference with CHUY ISSA at 8:57 PM CDT on 03/18/2021. The findings were acknowledged and understood. Radiation Dose CTDIVOL = (mGy): DLP = 2312.04~2312.04 (mGy-cm) Other Data: Other data: EKG from 2019 with sinus rhythm, PVCs Stress test 2019 indicates low risk for cardiac events per cardiology report A&P Assessment and plan (1) Fracture, thoracic vertebra: From a fall at home, unstable fracture, no neurological complaints at time of my evaluation Status: Acute Qualifiers: Encounter type: initial encounter Fracture morphology: other fracture Fracture type: closed Thoracic vertebra fracture level: T11 Qualified Code(s): S22.088A - Other fracture of T11-T12 vertebra, initial encounter for closed fracture (2) Atrial fibrillation: Unknown onset, appears to be a new finding, may be secondary to acute trauma/pain, started on diltiazem in the ED Status: Acute Qualifiers: Atrial fibrillation type: unspecified Qualified Code(s): I48.91 - Unspecified atrial fibrillation (3) History of DVT (deep vein thrombosis): Reccurent over the years, maintained on anticoagulation Status: Chronic (4) Chronic anticoagulation: Chronically on coumadin for history of DVT, subtherapeutic INR currently Status: Acute (5) Autoimmune hepatitis: Chronically on Azathioprine and prednisone Status: Chronic (6) Hypertension: Status: Chronic Qualifiers: Hypertension type: primary hypertension Qualified Code(s): I10 - Essential (primary) hypertension (7) Hyperglycemia: Steroid induced versus from diabetes Status: Acute (8) Lower limb ulcer, ankle: Followed at wound care clinic regularly Status: Chronic Qualifiers: Laterality: right Non-pressure ulcer stage: unspecified non-pressure ulcer stage Qualified Code(s): 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 (9) Gout: Chronically on allopurinol Status: Chronic Qualifiers: Chronicity: chronic Gout etiology: unspecified cause Gout site: unspecified site Presence of tophus: without tophus Qualified Code(s): M1A.9XX0 - Chronic gout, unspecified, without tophus (tophi) (10) Recurrent UTI: Followed by Dr Wright, has urethral stricture, chronically on methenamine and vitamin C Status: Chronic Additional A&P Information Continue serial cardiac enzymes Telemetry monitoring Continue diltiazem; if unable to obtain rate control will consider beta blockade IVFs Check TSH and magnesium Recheck HH Hold coumadin in event requires intervention Venous US BLE Echo Continue azathioprine and usual prednisone dose Monitor for need to stress dose steroids Sliding scale insulin Continue on home allopurinol Wound care to RLE ulcer Check urinalysis Home methenamine if available Help vitamin C secondary to supine position currently Serial neuro exams Pain control Home gabapentin Stool softners with pain medication Continue home xanax as needed Vitamin D level Calcium + vitamin D supplment Usual PPI Have not attempted placement of barton due to known urethral stricture SCDs currently for DVT prophylaxis, if HH stable in the morning consider pharmacological DVT prophylaxis Disposition depends on clinical course Recommend patient discuss findings on CT scan regarding pancreatic cyst with primary care provider to determine appropriate nests for following recommendations to repeat imaging at his age and with comorbid conditions. I have not discussed this with the patient given his current state of confusion. Family not presently available. FULL CODE Will follow along while here and address medical issues Consult Attestations Medical Necessity Statement: As per attending. Currently also requiring management for arrythmia. Coding Level of Care Code Acute Inspector [employer] for [facility] Fwd Diagnoses Fracture, thoracic vertebra S22.088A Encounter type: initial encounter Fracture morphology: other fracture Fracture type: closed Thoracic vertebra fracture level: T11 Atrial fibrillation I48.91 Atrial fibrillation type: unspecified History of DVT (deep vein thrombosis) Z86.718 Chronic anticoagulation Z79.01 Autoimmune hepatitis K75.4 Hypertension I10 Hypertension type: primary hypertension Hyperglycemia R73.9 Lower limb ulcer, ankle L97.319 Laterality: right Non-pressure ulcer stage: unspecified non-pressure ulcer stage Gout M1A.9XX0 Chronicity: chronic Gout etiology: unspecified cause Gout site: unspecified site Presence of tophus: without tophus Recurrent UTI N39.0
--- NOTE | 2021-03-18 23:04 | ECG_ITS ---
[facility] Test Date: 2021-03-19 Pat Name: Andi Rome Department: Room: 112 Gender: Male Supervisor: : 1935 Requested By: Oscar Rajan Order Number: [id number] Jossy MD: MAYITO ADAMS Measurements Intervals [place] Rate: 115 P: ID: QRS: -17 QRSD: 93 T: 73 QT: 312 QTc: 432 Interpretive Statements ATRIAL FIBRILLATION WITH RAPID VENTRICULAR RESPONSE POSSIBLE RIGHT VENTRICULAR CONDUCTION DELAY [RSR (QR) IN V1/V2] MINIMAL VOLTAGE CRITERIA FOR LVH, CONSIDER NORMAL VARIANT [MEETS CRITERIA IN ONE OF: R(aVL), S(V1), R(V5), R(V5/V6)+S(V1)] NONSPECIFIC T-WAVE ABNORMALITY ABNORMAL RHYTHM ECG Compared to ECG 03/18/2021 20:58:55 Incomplete right bundle-branch block no longer present T-wave abnormality still present Electronically Signed On 03-20-2021 0:16:52 CDT by MAYITO ADAMS [id number]
[2021-03-19] VITALS (70 sets, daily range): BP systolic 99–180; BP diastolic 56–129; PULSE 66–126; RESP 8–23; TEMP 36.6–36.7; O2SAT 83–100; BMI 32.0
--- NOTE | 2021-03-19 00:42 | USR_ITS ---
PROCEDURE INFORMATION: Exam: US Duplex Lower Extremity Veins, Bilateral Exam date and time: 03/19/2021 12:42 AM Age: 85 years old Clinical indication: Other: Fall with vertebral fracture, on coumadin low inr; Additional info: HX dvt, fall with vertebral fracture, on coumadin low inr, t11 fracture speak with nurse before moving patient TECHNIQUE: Imaging protocol: Real-time duplex ultrasound of the extremities with 2-D reyes scale, color Doppler flow and spectral waveform analysis with image documentation. Complete exam focused on the bilateral lower extremity veins. COMPARISON: MRI Foot w/wo LEFT [id number] 05/19/2014 8:21 AM FINDINGS: Right deep veins: The common femoral, femoral, proximal profunda femoral and popliteal veins are patent without thrombus. Normal Doppler waveforms. Normal compressibility and/or augmentation response. 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 Right superficial veins: Saphenofemoral junction is patent without thrombus. Left deep veins: Unremarkable. The common femoral, femoral, proximal profunda femoral and popliteal veins are patent without thrombus. Normal Doppler waveforms. Normal compressibility and/or augmentation response. Left superficial veins: The left greater saphenous vein is patent where visualized without thrombus. Soft tissues: Unremarkable. US/[place] [id number] IMPRESSION: 1. 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 2. No specific evidence of acute deep venous thrombus. Radiation Dose CTDIVOL = (mGy): DLP = (mGy-cm)
--- NOTE | 2021-03-19 03:04 | ECG_ITS ---
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 Inspector: : 1935 Requested By: Oscar Rajan Order Number: [id number] Jossy MD: MAYITO ADAMS Measurements Intervals [place] Rate: 108 P: AR: QRS: -20 QRSD: 90 T: 68 QT: 329 QTc: 442 Interpretive Statements ATRIAL FIBRILLATION WITH RAPID VENTRICULAR RESPONSE MODERATE VOLTAGE CRITERIA FOR LVH, CONSIDER NORMAL VARIANT [MEETS CRITERIA IN ONE OF: R(aVL), S(V1), R(V5), R(V5/V6)+S(V1)] NONSPECIFIC T-WAVE ABNORMALITY ABNORMAL RHYTHM ECG Compared to ECG 03/19/2021 02:08:27 No significant changes Electronically Signed On 03-20-2021 0:16:44 CDT by MAYITO ADAMS [id number]
[2021-03-19 03:56] LABS: Basophils % 0.2 %; Hematocrit 32.2 % (42.0-52.0); Hemoglobin 11.2 g/dL (11.7-16.6); Lymphocytes # 0.3 10^3/uL (0.8-4.8); Mean Corpuscular HGB Conc 34.8 g/dL (30.0-36.0); Mean Corpuscular Hemoglobin 40.1 pg (28.0-34.0); Mean Corpuscular Volume 115.4 fl (80-94); Mean Platelet Volume 11.9 fL (7.4-10.4); Monocytes # 0.8 10^3/uL (0.2-0.9); Monocytes % 6.2 %; Neutrophils # 11.06 10^3/uL (1.8-7.7); Neutrophils % 90.5 %; Nucleated Red Blood Cells # 0.6 /100WBC; Nucleated Red Blood Cells % 4.7 %; Platelet Count 142 10^3/cmm (130-400); Red Blood Count 2.79 10^6/uL (4.1-5.3); Red Cell Distribution Width 16.9 % (12.1-15.1); White Blood Count 12.2 10^3/uL (4.0-10.0)
[2021-03-19] MEDS: HYDROmorphone 1 mg/mL INJ 1 mL IVP ×2 (04:01→13:11)
[2021-03-19] MEDS: ondansetron 2 mg/ML SDV 2 mL 4 MG IVP (04:02)
[2021-03-19 04:05] LABS: INR 1.29 (0.8-1.2)
[2021-03-19] MEDS: sodium chloride 0.9% 1,000 ML 100 ML IV (04:09)
[2021-03-19 04:20] LABS: Troponin 5 6HR 59.71 ng/L (0-15)
[2021-03-19 04:27] LABS: Alanine Aminotransferase 35 U/L (0-41); Albumin Level 3.1 g/dL (3.5-5.2); Alkaline Phosphatase 128 IU/L (40-130); Anion Gap 15.6 (5-19); Aspartate Amino Transferase 35 U/L (0-40); Blood Urea Nitrogen 22 mg/dL (8-23); Calcium 8.3 mg/dL (8.5-10.5); Carbon Dioxide 22 mmol/L (22-29); Chloride 103 mmol/L (98-107); Globulin 2.9 g/dL (1.3-4.6); Glucose 176 mg/dL (65-115); Magnesium 1.7 mg/dL (1.7-2.3); Osmolality Calculated 290 mOsm/kg (285-295); Potassium 4.6 mmol/L (3.5-5.1); Sodium 136 mmol/L (136-145); Total Bilirubin 3.6 mg/dL (0.15-1.2); Uric Acid 3.5 mg/dL (3.4-7.0)
[2021-03-19 04:41] LABS: Troponin 5 6HR Delta 24.33 ng/L (0-12)
[2021-03-19 07:32] LABS: Glucose Point of Care 168 mg/dL (70-110)
[2021-03-19] MEDS: pantoprazole DR 40 mg Tablet PO (08:04)
[2021-03-19] MEDS: predniSONE 10 mg Tablet PO (08:04)
[2021-03-19] MEDS: docusate sodium 100 mg Capsule PO (08:04)
[2021-03-19] MEDS: calcium carb-vit d 600mg/400unit 1 Tablet 1 EACH PO (08:04)
[2021-03-19] MEDS: gabapentin 100 mg Capsule PO (08:04)
[2021-03-19] MEDS: allopurinol 300 mg Tablet PO (08:04)
--- NOTE | 2021-03-19 10:57 | PM.PN ---
Subjective Subjective: Interval history: Seen today. Patient complains of back pain. Atrial fibrillation has been controlled overnight. He is converted to sinus rhythm after the Cardizem drip. We will start him on beta-mary lou today. Patient was seen by Dr. Bowen's team as well today. Patient will be sent for stat MRI for his thoracic spine and lumbar spine. Dr. Bowen is planning to take him for surgery in a.m. Vitals/I&O/Wt Last Vital Signs Temp 98.1 F 03/19/21 00:17 Pulse 87 03/19/21 05:55 Resp 10 L 03/19/21 05:55 BP 125/73 03/19/21 05:55 Pulse Ox 97 03/19/21 05:55 03/18/21 03/19/21 03/19/21 22:59 06:59 14:59 Intake Total 46.917 / 46.917 Balance 46.917 / 46.917 Weight last 48 hrs Weight 110.178 kg Physical Exam Narrative: EXAM NARRATIVE: General: Alert oriented x3, patient seen laying in bed appearing to be comfortable. He is wearing hearing aids bilaterally. HEENT: Normocephalic, atraumatic, EOMI, breathing room air Cardio: Regular rate rhythm, normal S1-S2, no murmurs rubs gallops, Respiratory: Good bilateral air entry, no wheezes no rhonchi appreciated, normal respiratory effort. GI: Abdomen soft, nontender, nondistended, bowel sounds + Behavior: Appropriate and cooperative Extremities: Pulses 2+, no edema, no cyanosis. Back: Paraspinal muscle tenderness present throughout thoracolumbar spine. Motor strength 5 out of 5 upper and lower extremities, sensation intact upper and lower extremities. Right calf is wrapped with Band-Aid. Patient does have a wound which is covered at this time. He follows with the wound care. No gross neurologic deficits present at this time. Data : 03/19/21 03:42 03/19/21 03:42 A&P Assessment and plan (1) Thoracic spine fracture: Status: Acute (2) Atrial fibrillation: Status: Acute Qualifiers: Atrial fibrillation type: unspecified Qualified Code(s): I48.91 - Unspecified atrial fibrillation (3) Urethral stricture: Status: Chronic Qualifiers: Urethral stricture type: post-procedural Urethral stricture sex-location: male urethra-unspecified Qualified Code(s): N99.114 - Postprocedural urethral stricture, male, unspecified (4) Chronic anticoagulation: Status: Acute (5) History of DVT (deep vein thrombosis): Status: Chronic (6) Hypertension: Status: Chronic Qualifiers: Hypertension type: primary hypertension Qualified Code(s): I10 - Essential (primary) hypertension Additional A&P Information Acute T11 thoracic spine fracture ?Concern of unstable T11 fracture as per CT scan. Orthopedic surgery was consulted stat. MRI thoracic and lumbar spine without contrast will be done today. We will start patient on TLSO brace. Family understands and patient agrees to move forward with the study. ?Tentative plan to take patient for surgery in a.m. with orthopedic team ?Patient on 5 mg warfarin at home for his recurrent DVT history. It has been held since 03/18/2021. INR is 1.2. Anticoagulation will need to be started soon post surgery as patient is high risk for embolic disease. states he first had a DVT in his 20s. Patient may be a candidate for DOAC. Will discuss more with him after surgery complete. Spine precautions Place Juarez catheter Place TLSO brace Strict bedrest for the patient New onset atrial fibrillation Did receive Cardizem pushes in the ER. Was on Cardizem drip overnight. Has converted to sinus rhythm. I will start patient on beta-mary lou metoprolol 25 twice daily. We will continue to monitor patient on telemetry Hypertension I do not see him on any medications at home for hypertension specifically. His blood pressure has been 120s over 70s during hospital stay so far. He was initially hypertensive when he first came in 160 systolic. He was in a lot of pain when he first got to the hospital. We will continue to monitor for now. I will not start any antihypertensive agents at this time. Pain is a huge factor at this time as well. History of DVT Patient on chronic anticoagulation with warfarin at home. ?See-section on acute T11 thoracic spine fracture Urethral stricture history ?Urinalysis was abnormal. Urine culture has been sent. He does have a history of recurrent UTIs. I will start him on ceftriaxone 1 g daily for now. Will await final results of urine culture he denies any symptoms at this time. Patient did do a bladder scan which showed 700 cc urine. Straight cath order was placed but patient refused. He was able to void but only a little bit. Now given his condition of acute thoracic spine fracture we will place a Juarez catheter. Fluids: D5 normal saline 75 cc/h Electrolytes: Replete as needed Nutrition: N.p.o. at midnight Activity: Strict bedrest with spine precautions DVT ppx: SCDs Patient's family: and son updated at bedside in detail. The nurse, orthopedic surgery team and myself are present during discussion of further plan. Attestations Medical Necessity Statement*: Will require greater than 48-hour inpatient stay for acute spine fracture and atrial fibrillation. Time Spent in Patient Care: Greater than 35 minutes (>than 50% of time spent in counselling and/or direct pt care on unit). Coding Level of Care Code Acute Production Sampler for nathaly Laird Diagnoses Thoracic spine fracture S22.009A Atrial fibrillation I48.91 Atrial fibrillation type: unspecified Urethral stricture N99.114 Urethral stricture type: post-procedural Urethral stricture sex-location: male urethra-unspecified Chronic anticoagulation Z79.01 History of DVT (deep vein thrombosis) Z86.718 Hypertension I10 Hypertension type: primary hypertension
[2021-03-19 11:50] LABS: Glucose Point of Care 148 mg/dL (70-110)
--- NOTE | 2021-03-19 12:26 | PC.NURSE ---
call placed to Dr Zhou with concerns of patient not voiding yet this shift instructions received to straight cath upon entering patient room patient is attempting to void 200 ml noted in urinal patient request to continue to try voiding for a few more min
--- NOTE | 2021-03-19 12:58 | PC.NURSE ---
Patient refused straight cath at this time was able to Void 250mls
[2021-03-19 13:15] LABS: Add Urine Microscopic? YES; Bilirubin Urine Neg (Negative); Blood Urine Neg (Negative); Glucose Urine UA Norm (Normal); Ketones Urine 1+ (Negative); Leukocyte Esterase Urine Trace (Negative); Nitrate Urine Positive (Negative); Protein Urine Neg (Negative); Urine Appearance Cloudy (CLEAR); Urine Color Dark Yellow (Yellow); Urobilinogen Urine 1 mg/dL (Negative); pH Urine 7 (5-7)
[2021-03-19 13:16] LABS: RBC Urine 0-4 /hpf (0-2); Squamous Epithelial Cell Urine 0-4 /hpf (0-5)
[2021-03-19 13:17] LABS: Add Urine Culture? Yes; Bacteria Urine 2+ /hpf; Mucus Urine 1+ /hpf
--- NOTE | 2021-03-19 15:12 | PM.CONSULT ---
Documented by User: SARITA Steward 03/19/21 15:29 Providers/Reason For Consult Consulting Physician/Specialty*: Orthopedics Spine Reason for Consult*: Back pain Attending Physician: Lisa Zhou MD Primary Care Provider: Kamran Abdi MD History of Present Illness History of Present Illness Andi Rome is a 85 year old male presented to [facility] emergency room following a fall [place] where he was carrying buckets became dizzy fell back onto his rear end from a standing position followed by continuing to fall backwards hitting his head but denied loss of consciousness. His family witnessed the fall. He presented to the emergency room where x-rays and CT scans confirmed a back fracture orthopedics was then consulted. There was some communication difficulties with finding the patient's location in the hospital. Upon evaluation in C[facility] room 12 with family present they confirmed the fall with immediate back pain. Patient describes the back pain as sharp stabbing in nature localized to his mid back. He denies any leg pain. He has had a right knee replacement surgery. Any movement makes his pain much worse rest gives him some temporary relief. He denies any loss of bowel or bladder control. Family is present and helps answer questions during the exam in the room. He ranks the pain as 5 out of 10 on the pain scale. He denied any loss of consciousness in the fall he denies any neck pain currently. He has had previous cervical anterior fusion at C6-7 with posterior instrumentation by Dr. Larry Vazquez approximately 5 years ago. He denies any arm pain, denies any hip pain. Review of Systems General: Reports: 10 or more systems reviewed and unremarkable except in HPI and below Const: Denies: fever(s) or change in weight Eyes: Denies: change in vision ENMT: Denies: oral sores, tinnitus, disequilibrium or nasal congestion Card: Reports: edema; Denies: chest pain or palpitations Resp: Denies: dyspnea, non-productive cough, wheezing, pain on inspiration or hemoptysis GI: Reports: nausea and vomiting; Denies: abdominal pain, diarrhea or constipation : Reports: urinary incontinence; Denies: difficulty urinating or hematuria Musc: Reports: neck pain, back pain and extremity pain Skin/Breast: Reports: lesions (Right lower extremity, followed at wound care clinic, last seen 03/14/2021) Neuro: Reports: headache(s); Denies: numbness in extremities, weakness in extremities or difficulty walking Psych: Denies: anxiety or depression Rm/Lymph: Reports: easy bruising Meds/Allergies Home Medications and Allergies Home Medications Medication Instructions Recorded Confirmed Last Taken Type allopurinol 300 mg tablet 300 mg PO DAILY 08/20/19 03/19/21 09/13/19 History ascorbate calcium (vitamin C) 500 1,000 mg PO BID 08/20/19 03/19/21 09/13/19 History mg tablet azathioprine 50 mg tablet 50 mg PO DAILY 08/20/19 03/19/21 09/13/19 History famotidine 20 mg tablet 20 mg PO BID 08/20/19 03/19/21 09/13/19 History gabapentin 100 mg capsule 100 mg PO TID 08/20/19 03/19/21 09/13/19 History warfarin 5 mg tablet See Rx Instructions PO DAILY 08/20/19 03/19/21 09/13/19 History diphenoxylate-atropine 2.5 1 tab PO Q6H PRN 03/31/20 03/19/21 Unknown History mg-0.025 mg tablet methenamine hippurate 1 gram tablet 1 g PO BID #60 tab 05/06/20 03/19/21 Unknown Rx alprazolam 0.25 mg PO DAILY PRN 03/19/21 03/19/21 Unknown History prednisone 10 mg PO DAILY 03/19/21 03/19/21 Unknown History Allergies Allergy/AdvReac Type Severity Reaction Status Date / Time No Known Allergies Allergy Unverified 08/20/19 14:16 Current Medications Current Medications Generic Name Dose Route Start Last Admin Trade Name Hardikq PRN Reason Stop Dose Admin Allopurinol 300 mg 03/19/21 09:00 03/19/21 08:04 Allopurinol 300 Mg Tablet PO 300 mg DAILY PHILLIP Administration Azathioprine 50 mg 03/19/21 09:00 03/19/21 08:04 Azathioprine 50 Mg Tablet PO 50 mg DAILY PHILLIP Administration Calcium Carbonate 1 each 03/19/21 09:00 03/19/21 08:04 Calcium Carb-Vit D 600mg/400unit 1 Tablet PO 1 each BID PHILLIP Administration Docusate Sodium 100 mg 03/19/21 09:00 03/19/21 08:04 Docusate Sodium 100 Mg Capsule PO 100 mg BID PHILLIP Administration Gabapentin 100 mg 03/19/21 09:00 03/19/21 08:04 Gabapentin 100 Mg Capsule PO 100 mg TID PHILLIP Administration Hydromorphone HCl 0.5 - 1 mg 03/19/21 00:35 03/19/21 13:11 Hydromorphone 1 Mg/Ml Inj 1 Ml IVP 0.5 mg Q3H PRN Administration MODERATE TO SEVERE PAIN Diltiazem HCl 125 mg/ Sodium 125 mls @ 0 mls/hr 03/18/21 22:15 03/19/21 08:10 Chloride IV 0 mg/hr .Q0M PHILLIP 0 mls/hr Titration Protocol Per Protocol Sodium Chloride 1,000 mls @ 100 mls/hr 03/19/21 00:17 03/19/21 15:06 Sodium Chloride 0.9% IV Infused .Q10H PHILLIP Infusion Insulin Human Lispro 0 unit 03/19/21 08:00 03/19/21 11:49 Insulin Lispro 100 Unit/1 Ml SUBCUT Not Given TIDWM PHILLIP Protocol Non-Formulary Medication 1 gm 03/19/21 09:00 03/19/21 08:05 Methenamine Hippurate PO Not Given BID PHILLIP Ondansetron HCl 4 mg 03/19/21 00:17 03/19/21 04:02 Ondansetron 2 Mg/Ml Sdv 2 Ml IVP 4 mg Q6H PRN Administration NAUSEA AND VOMITING Pantoprazole Sodium 40 mg 03/19/21 09:00 03/19/21 08:[address] 40 Mg Tablet PO 40 mg DAILY PHILLIP Administration Prednisone 10 mg 03/19/21 09:00 03/19/21 08:04 Prednisone 10 Mg Tablet PO 10 mg DAILY PHILLIP Administration PFSH Acute PFSH: Medical History (Updated 03/19/21 @ 15:25 by SARITA Steward) Autoimmune hepatitis Azathioprine and prednisone Colon cancer Gout History of DVT (deep vein thrombosis) recurrent History of stress test Hypertension Recurrent UTI Urethral stricture Surgical History (Updated 03/19/21 @ 00:01 by Alaina Montana MD) H/O neck surgery H/O partial resection of colon due to cancer H/O total knee replacement right H/O transurethral resection of prostate History of bladder surgery History of cataract surgery History of cholecystectomy History of skin graft Family History Father , at age 65 Cancer lung Mother , at age 88 Alzheimer's dementia Social History (Updated 03/19/21 @ 00:57 by Alaina Montana MD) Smoking and tobacco status: never smoked Alcohol intake: never Substance/Drug Use: never Marital status: Current occupational status: retired Dietary Habits: Current diet type/program: regular Vitals/I&O/Wt Last Vital Signs Temp 98.1 F 03/19/21 00:17 Pulse 76 03/19/21 12:28 Resp 17 03/19/21 13:11 BP 119/66 03/19/21 12:28 Pulse Ox 94 03/19/21 12:28 03/19/21 03/19/21 03/19/21 06:59 14:59 22:59 Intake Total 46.917 / 46.917 1000 / 1046.917 Output Total 250 / 250 Balance -203.083 / -224.470 9785 / 796.917 Weight last 48 hrs Weight 242 lb 14.4 oz Physical Exam Narrative: EXAM NARRATIVE: Patient is alert and orient x3 has good general appearance normal mood normal affect. Severe palpatory or percussion pain throughout the paraspinous musculature of the thoracolumbar spine. He is supine in bed appears comfortable. normal sensation to light touch through all dermatomal layers. Normal sensation light touch down both lower extremities with 5/5 motor strength throughout all motor groups. No palpable pain over the SI joints bilaterally. Skin is clear warm with normal station light touch calves are supple with no medial thigh tenderness negative Homans' sign. No palpable lymphadenopathy bilaterally. Reflexes are symmetric about the knees and Achilles. No hyperreflexia or clonus. Downgoing Babinski's bilaterally. Dorsalis pedis and posterior tibial pulses are 2+. No palpable edema bilaterally. HENMT: COMMON NORMALS: normocephalic HEAD & SCALP: normocephalic Resp: COMMON NORMALS: normal respiratory effort Cardio: RHYTHM: abnormal rhythm irregularly irregular GI: COMMON NORMALS: Soft to palpation PALPATION: Yes Soft to palpation : BLADDER/KIDNEY EXAM: Yes CVA tenderness Back/Pelvis: GENERAL BACK: Yes CVA tenderness Psych: COMMON NORMALS: cooperative A&P Assessment and plan (1) Thoracic spine fracture: Patient is neuro intact. Based on the CT scan concerns of a Chance fracture. Would recommend an MRI scan of the thoracic and lumbar spine. I discussed at length with the family that this is an unstable fracture and that the possibility of surgery may be required. We will also attempt to fit him for a TLSO brace. Most important would be to get the MRI scans as soon as possible. Of the thoracic and lumbar spine with STIR image. The family understands patient agrees to move forward with the study. Dr. Bowen is aware of the situation and agrees with the above-stated plan. 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 Detailed Diagnoses Thoracic spine fracture S22.009A Fracture, thoracic vertebra S22.088A Encounter type: initial encounter Fracture morphology: other fracture Fracture type: closed Thoracic vertebra fracture level: T11 Documented by User: Gianni Bowen DO 03/20/21 07:18 Meds/Allergies Home Medications and Allergies Home Medications Medication Instructions Recorded Confirmed Last Taken Type allopurinol 300 mg tablet 300 mg PO DAILY 08/20/19 03/19/21 09/13/19 History ascorbate calcium (vitamin C) 500 1,000 mg PO BID 08/20/19 03/19/21 09/13/19 History mg tablet azathioprine 50 mg tablet 50 mg PO DAILY 08/20/19 03/19/21 09/13/19 History famotidine 20 mg tablet 20 mg PO BID 08/20/19 03/19/21 09/13/19 History gabapentin 100 mg capsule 100 mg PO TID 08/20/19 03/19/21 09/13/19 History warfarin 5 mg tablet See Rx Instructions PO DAILY 08/20/19 03/19/2109/12/20 History diphenoxylate-atropine 2.5 1 tab PO Q6H PRN 03/31/20 03/19/21 Unknown History mg-0.025 mg tablet methenamine hippurate 1 gram tablet 1 g PO BID #60 tab 05/06/20 03/19/21 Unknown Rx alprazolam 0.25 mg PO DAILY PRN 03/19/21 03/19/21 Unknown History prednisone 10 mg PO DAILY 03/19/21 03/19/21 Unknown History Allergies Allergy/AdvReac Type Severity Reaction Status Date / Time No Known Allergies Allergy Unverified 08/20/19 14:16 PFSH Acute PFSH: Medical History (Updated 03/19/21 @ 15:25 by SARITA Steward) Autoimmune hepatitis Azathioprine and prednisone Colon cancer Gout History of DVT (deep vein thrombosis) recurrent History of stress test Hypertension Recurrent UTI Urethral stricture Surgical History (Updated 03/19/21 @ 00:01 by Alaina Montana MD) H/O neck surgery H/O partial resection of colon due to cancer H/O total knee replacement right H/O transurethral resection of prostate History of bladder surgery History of cataract surgery History of cholecystectomy History of skin graft Family History Father , at age 65 Cancer lung Mother , at age 88 Alzheimer's dementia Social History (Updated 03/19/21 @ 00:57 by Alaina Montana MD) Smoking and tobacco status: never smoked Alcohol intake: never Substance/Drug Use: never Marital status: Current occupational status: retired Coding Level of Care Code 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
[2021-03-19] MEDS: calcium carbonate 500 mg Chew Tablet PO (15:14)
--- NOTE | 2021-03-19 15:23 | PC.NURSE ---
Dr strong to assess patient patient refuses further work up and MRI at this time Family at bedside Understands importance of Imagine to aid in care patient was able to speak with patient and patient was then agreeable to MRI patient refused any Anxiety medications offered Patient requested something for his stomach this nurse asked if it felt like heart burn or like he was going to get sick patient reported heart burn Dr strong gave instructions to give tums 500mg PO
[2021-03-19] MEDS: LORazepam 2 mg/mL INJ 1 mL IVP (16:43)
--- NOTE | 2021-03-19 16:43 | PC.NURSE ---
received call from MRI .reports patient became combative and harmful to himself and others while in MRI machine. this nurse reported to Dr strong. received instructions to give 2 mg IVP ativan stat . medication obtained and taken to [facility], found patient on gurney at ambulance doors patient screaming help me please help me .EMT services as well as family attempting to calm patient and keep him safely on the gurney. ativan administered as ordered. patient was placed in soft restraints By EMS staff and transported to inpatient hospital room.pt now calm and cooperative. restraints were removed immediately. patient is calm yet when touched or startled patient jumps and has to be oriented quickly to his surroundings. family at patient side for all events. Rony STEIN with spine surgery team notified of events and will to notify Dr Bowen patient obtained 2 skin tears to left wrist in process.cleansed with ns and optifoam applied.
[2021-03-19] MEDS: dextrose 5%-sod chloride 0.9% 1,000 ML 100 ML IV (17:48)
--- NOTE | 2021-03-19 19:26 | PC.NURSE ---
Shift Note Frequent safety and comfort rounds continue. Orders and/or nursing care completed as indicated. Patient monitored for response to intervention and treatment(s). Education provided includes spine restrictions. Patient and/or registered representative family verbalized understanding. Will continue to monitor.
[2021-03-19 20:30] LABS: Glucose Point of Care 197 mg/dL (70-110)
[2021-03-19] MEDS: metoprolol tartrate 25 mg Tablet PO (22:32)
[2021-03-20] VITALS (46 sets, daily range): BP systolic 102–183; BP diastolic 48–101; PULSE 63–89; RESP 9–31; TEMP 36.3–37.5; O2SAT 92–100
--- NOTE | 2021-03-20 | SCC_ITS ---
Procedure Done: 1. T8 - L1 posterior spine fusion 2. T8-L1 instrumentation 3. Computer navigation 4. allograft 5 seconds of fluoroscopic guidance, for a cumulative dose of 43.4 mGy, was provided to Dr. Bowen by the radiology department. C-arm images of the thoracic spine were saved for the patient's permanent record. [id number]
--- NOTE | 2021-03-20 | XR_ITS ---
WS: [id number] INTRAOPERATIVE TECHNIQUE: 4 Spot fluoroscopic images for intraoperative purposes. FLUOROSCOPY TIME: 14 seconds CLINICAL INFORMATION: LOW BACK PAIN COMPARISON: None. FINDINGS: Intraoperative changes pedicle screw fixation with interconnecting rods mid and lower thoracic spine extending to L1. Hardware appears in good position. XR/XR thoracic spine 2V [id number] IMPRESSION: Images obtained for intraoperative purposes.
[2021-03-20] MEDS: dextrose 5%-sod chloride 0.9% 1,000 ML 100 ML IV ×2 (03:55→10:47)
[2021-03-20 04:51] LABS: Basophils % 0.2 %; Eosinophils # 0.1 10^3/uL (0.0-0.8); Eosinophils % 0.5 %; Hematocrit 28.6 % (42.0-52.0); Hemoglobin 9.7 g/dL (11.7-16.6); Lymphocytes # 0.7 10^3/uL (0.8-4.8); Lymphocytes % 6.9 %; Mean Corpuscular HGB Conc 33.9 g/dL (30.0-36.0); Mean Corpuscular Hemoglobin 39.4 pg (28.0-34.0); Mean Corpuscular Volume 116.3 fl (80-94); Mean Platelet Volume 12.1 fL (7.4-10.4); Monocytes # 0.8 10^3/uL (0.2-0.9); Monocytes % 7.7 %; Neutrophils # 8.59 10^3/uL (1.8-7.7); Neutrophils % 83.8 %; Nucleated Red Blood Cells # 0.7 /100WBC; Nucleated Red Blood Cells % 6.9 %; Platelet Count 120 10^3/cmm (130-400); Red Blood Count 2.46 10^6/uL (4.1-5.3); Red Cell Distribution Width 17.2 % (12.1-15.1); White Blood Count 10.3 10^3/uL (4.0-10.0)
[2021-03-20 05:14] LABS: Alanine Aminotransferase 26 U/L (0-41); Albumin Level 2.7 g/dL (3.5-5.2); Alkaline Phosphatase 101 IU/L (40-130); Anion Gap 12.1 (5-19); Aspartate Amino Transferase 41 U/L (0-40); Blood Urea Nitrogen 27 mg/dL (8-23); Carbon Dioxide 22 mmol/L (22-29); Chloride 106 mmol/L (98-107); Globulin 2.4 g/dL (1.3-4.6); Glucose 129 mg/dL (65-115); Magnesium 1.9 mg/dL (1.7-2.3); Osmolality Calculated 289 mOsm/kg (285-295); Phosphorus 2.2 mg/dL (2.5-4.5); Potassium 4.1 mmol/L (3.5-5.1); Sodium 136 mmol/L (136-145); Total Bilirubin 3.3 mg/dL (0.15-1.2); Total Protein 5.1 g/dL (6.6-8.7)
--- NOTE | 2021-03-20 06:00 | USCV_ITS ---
Andi Rome Age: 85 Gender: M : 1935 Exam Date: 03/20/2021 08:33 Ordering Phys: Alaina Montana MD Technologist: LORELEI [place] [facility] [place]: Atrial [place] BP: 160 / 79 HR: 84 Rhythm: Sinus Technical Quality: Technically difficult study MEASUREMENTS (Male / Female) Normal Values 2D ECHO LV Ejection Fraction MOD 2C 55.3 % LV Ejection Fraction 2C AL 56.4 % LA Width 3.4 cm LA Height 4.6 cm RA Width 3.0 cm RA Height 4.2 cm DOPPLER AV Peak Velocity 181.0 cm/s LVOT Peak Velocity 99.0 cm/s MV Peak Velocity 119.0 cm/s MV Area PHT 5.0 cm squared Mitral E to A Ratio 0.9 MV E' Velocity 49.5 cm/s Mitral E to MV E' Ratio 9.9 Mitral E to LV E' Lateral Ratio 8.6 Mitral E to LV E' Septal Ratio 11.7 FINDINGS Left Ventricle Normal left ventricular cavity size. Normal left ventricular systolic function. Left ventricular ejection fraction is estimated at 55-60 %. Although no diagnostic regional wall motion abnormality could be identified, this possibility cannot be completely excluded based on the study. Normal diastolic function. Right Ventricle Right ventricle not well visualized. Right Atrium Right atrium not well visualized. Left Atrium Normal left atrial size. Mitral Valve Structurally normal mitral valve. No mitral valve stenosis. Trace mitral valve regurgitation. Aortic Valve Aortic valve not well visualized. No aortic valve stenosis. No aortic valve regurgitation. Tricuspid Valve Tricuspid valve not well visualized. Pulmonic Valve Pulmonic valve not well visualized. Pericardium No pericardial effusion. Aorta Aorta not well visualized. CONCLUSIONS 1. This is a technically difficult study. 2. Normal left ventricular cavity size and systolic function. Left ventricular ejection fraction is estimated at 55-60 %. Although no diagnostic regional wall motion abnormality could be identified, this possibility cannot be completely excluded based on the study. Normal diastolic function. 3. No prior similar studies to compare. Estrella Stearns MD (Electronically Signed) Final Date: 20 March 2021 16:55 S
[2021-03-20 06:44] LABS: Glucose Point of Care 126 mg/dL (70-110)
[2021-03-20] MEDS: metoprolol tartrate 25 mg Tablet PO (10:50)
[2021-03-20 11:20] LABS: Glucose Point of Care 131 mg/dL (70-110)
--- NOTE | 2021-03-20 11:32 | PC.NURSE ---
call placed to Dr Carrizales with concerns of administering PO medications with Npo status instructions received to hold all po meds except Metoprolol
[2021-03-20] MEDS: sodium chloride 0.9% 1,000 ML 30 ML IV (12:58)
--- NOTE | 2021-03-20 13:07 | P.PN_ITS ---
Subjective Subjective: Interval history: Was seen and examined this morning, this morning he was pleasantly confused, he was try to get out of the bed however required verbal redirection to stay in the bed, he is able to follow commands, able to wiggle his toes sensation is intact Juarez catheter draining concentrated urine Vitals/I&O/Wt Last Vital Signs Temp 99.5 F 03/20/21 12:48 Pulse 89 03/20/21 12:48 Resp 18 03/20/21 12:48 BP 183/83 03/20/21 12:48 Pulse Ox 97 03/20/21 12:48 03/19/21 03/20/21 03/20/21 22:59 06:59 14:59 Intake Total 1000 / 5457.395 6195 / 2046.917 435 / 435 Output Total 900 / 1150 Balance 1000 / 796.917 100 / 896.917 435 / 435 Weight last 48 hrs Weight 110.178 kg Physical Exam Narrative: EXAM NARRATIVE: Patient was laying in his bed requiring constant verbal redirection Juarez cath draining concentrated urine Able to wiggle his toes Bilateral lower extremity edema 3+ Sensation is intact around medial thigh areas Baseline cognitive impairment Saturating well on room air No audible stridor or wheezing S1, S2 Soft abdomen nontender Urinary Catheter Management^: Juarez: Cath Placed During This Visit: yes Reason for Continuing Indwelling Catheter: Accurate Measurement of Urinary Output in Critically Ill Patients Urinary Catheter Date of Insertion: 03/19/21 Urinary Catheter Time of Insertion: 17:00 Data : 03/20/21 04:30 03/20/21 04:30 A&P Assessment and plan (1) Thoracic spine fracture: Status: Acute (2) Hyperglycemia: Status: Acute (3) Autoimmune hepatitis: Status: Chronic (4) Gout: Status: Chronic Qualifiers: Gout site: unspecified site Gout etiology: unspecified cause Chronicity: chronic Presence of tophus: without tophus Qualified Code(s): M [id number].9XX0 - Chronic gout, unspecified, without tophus (tophi) (5) Hypertension: Status: Chronic Qualifiers: Hypertension type: primary hypertension Qualified Code(s): I10 - Essential (primary) hypertension (6) History of DVT (deep vein thrombosis): Status: Chronic (7) Chronic anticoagulation: Status: Acute (8) Lower limb ulcer, ankle: Status: Chronic Qualifiers: Laterality: right Non-pressure ulcer stage: unspecified non-pressure ulcer stage Qualified Code(s): 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 (9) Atrial fibrillation: Status: Acute Qualifiers: Atrial fibrillation type: unspecified Qualified Code(s): I48.91 - Unspecified atrial fibrillation (10) Fungus present in urine: Status: Acute (11) Urethral stricture: Status: Chronic Qualifiers: Urethral stricture type: post-procedural Urethral stricture sex- location: male urethra-unspecified Qualified Code(s): N99.114 - Postprocedural urethral stricture, male, unspecified (12) Recurrent UTI: Status: Chronic Additional A&P Information Vertebral fracture: Could not complete MRI yesterday he does experience waxing and waning confusion spells, no active neurological deficits He does try to get out of bed, verbally redirectable Juarez catheter draining concentrated urine No active signs of spinal cord compression Plan for surgery today New onset atrial fibrillation: Rate controlled with beta-mary lou, start anticoagulation after the surgery, [id number] 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 Urethral stricture: At home patient does use self intermittent catheterization, Juarez catheter placed during this hospitalization secondary to back fracture and bedrest npo Advance diet after the surgery Start anticoagulating agent after surgery Full code Attestations Medical Necessity Statement*: Continue medical management Time Spent in Patient Care: less than 15 minutes Coding Level of Care Code Acute Teaching Supervisor for [facility] Fwd Diagnoses Thoracic spine fracture S22.009A Hyperglycemia R73.9 Autoimmune hepatitis K75.4 Gout [id number].9XX0 Gout site: unspecified site Gout etiology: unspecified cause Chronicity: chronic Presence of tophus: without tophus Hypertension I10 Hypertension type: primary hypertension History of DVT (deep vein thrombosis) Z86.718 Chronic anticoagulation Z79.01 Lower limb ulcer, ankle L97.319 Laterality: right Non-pressure ulcer stage: unspecified non-pressure ulcer stage Atrial fibrillation I48.91 Atrial fibrillation type: unspecified Fungus present in urine B49 Urethral stricture N99.114 Urethral stricture type: post-procedural Urethral stricture sex-location: male urethra-unspecified Recurrent UTI N39.0
--- NOTE | 2021-03-20 13:10 | ANES.PREANE2 ---
Pre-Anesthetic Assessment Pre-Anesthetic Assessment: Height/Weight: Height 1.85 m Weight 110.178 kg Temp Pulse Resp BP Pulse Ox 99.5 F 89 18 183/83 97 03/20/21 12:48 03/20/21 12:48 03/20/21 12:48 03/20/21 12:48 03/20/21 12:48 Proposed Procedure: Operation Date: 03/20/21 12:30 Proposed Procedures p Posterior Lumbar Interbody Fusion T9-L1(Not Applicable) - Gianni Bowen, DO Was Beta Denise taken within 24 hours: N/A Was Clonidine taken within 24 hours: N/A Last intake: Intake Last Liquid Date 03/20/21 Last Liquid Time 10:30 Last Solid Date 03/18/21 Last Solid Time 18:00 Social: Social History: No alcohol and No tobacco Exam: Pre-Anes Outpt Exam: alert (quite confused today; unable to answer questions or follow commands) Airway: Submandibular: WNL Cervical ROM: WNL Dentition: False History/ROS: No significant complaints Pulmonary: Pulmonary: None reported CV/HEM: CV/HEM: Afib and Arrythmia : : None reported Hepatic: Hepatic: Hepatitis (autoimmune hepatits) GI: GI: None reported Metabolic: Metabolic: Hyperlipidemia and Morbid obesity Musc/skel: Musc/skel: Lower Back Pain (thoracic fracture after fall w/o LOC) Anesthetic Plan: ASA status: 4 Anesthesia: General Other: Plan arterial line Risk of > 500 ml blood loss (7ml/kg in children): Yes, adequate IV access and fluids planned Meds/Allergies Current Medications: Current Medications Generic Name Dose Route Start Last Admin Trade Name Freq PRN Reason Stop Dose Admin Allopurinol 300 mg 03/19/21 09:00 03/20/21 11:31 Allopurinol 300 Mg Tablet PO Not Given DAILY [facility]IP Azathioprine 50 mg 03/19/21 09:00 03/20/21 11:31 Azathioprine 50 Mg Tablet PO Not Given DAILY [facility]ILLIP Calcium Carbonate 1 each 03/19/21 09:00 03/20/21 11:31 Calcium Carb-Vit D 600mg/400unit 1 Tablet PO Not Given BID PHILLIP Calcium Carbonate 500 mg 03/19/21 15:09 03/19/21 15:14 Calcium Carbonat e 500 Mg Chew Tabl et PO 500 mg Q4H PRN Administration INDIGESTION Docusate Sodium 100 mg 03/19/21 09:00 03/20/21 11:32 Docusate Sodium 100 Mg Capsule PO Not Given BID [facility] Gabapentin 100 mg 03/19/21 09:00 03/20/21 11:32 Gabapentin 100 M g Capsule PO Not Given TID PHILLIP Dextrose/Sodium Ch loride 1,000 mls @ 100 m ls/hr 03/19/21 15:15 03/20/21 10:47 Dextrose 5%-Sod Chloride 0.9% IV 100 mls/hr .Q10H [facility] Administration Sodium Chloride 1,000 mls @ 30 ml s/hr 03/20/21 12:30 03/20/21 12:58 Sodium Chloride 0.9% IV 30 mls/hr .Q24H [facility] Administration Insulin Human Lisp ro 0 unit 03/19/21 21:00 03/20/21 11:36 Insulin Lispro 1 00 Unit/1 Ml SUBCUT Not Given BEDTIME [facility] Protocol Insulin Human Lisp ro 0 unit 03/19/21 08:00 03/20/21 11:37 Insulin Lispro 1 00 Unit/1 Ml SUBCUT Not Given TIDWM [facility] Protocol Metoprolol Tartrat e 25 mg 03/19/21 21:00 03/20/21 10:50 Metoprolol Tartr ate 25 Mg Tablet PO 25 mg BID@0900,2100 [facility] Administration Non-Formulary Medi cation 1 gm 03/19/21 09:00 03/20/21 11:32 Methenamine Kamala urate PO Not Given BID [facility] Ondansetron HCl 4 mg 03/19/21 00:17 03/19/21 04:02 Ondansetron 2 Mg /Ml Sdv 2 Ml IVP 4 mg Q6H PRN Administration NAUSEA AND VOMITI NG Pantoprazole Sodiu m 40 mg 03/19/21 09:00 03/20/21 11:[address] 40 Mg Tablet PO Not Given DAILY [facility] Prednisone 10 mg 03/19/21 09:00 03/20/21 11:32 Prednisone 10 Mg Tablet PO Not Given DAILY [facility] PFSH Anesthesia PFSH: Medical History (Updated 03/19/21 @ 15:25 by SARITA Steward) Autoimmune hepatitis Azathioprine and prednisone Colon cancer Gout History of DVT (deep vein thrombosis) recurrent History of stress test Hypertension Recurrent UTI Urethral stricture Surgical History (Updated 03/19/21 @ 00:01 by Alaina Montana MD) H/O neck surgery H/O partial resection of colon due to cancer H/O total knee replacement right H/O transurethral resection of prostate History of bladder surgery History of cataract surgery History of cholecystectomy History of skin graft Family History Father , at age 65 Cancer lung Mother , at age 88 Alzheimer's dementia Social History (Updated 03/19/21 @ 00:57 by Alaina Montana MD) Smoking and tobacco status: never smoked Alcohol intake: never Substance/Drug Use: never Marital status: Current occupational status: retired Data Anesthesia CBC & Chem 7: 03/20/21 04:30 03/20/21 04:30 Other Labs: Laboratory Results - last 48 hr 03/18/21 03/18/21 03/18/21 18:02 18:02 18:02 WBC 9.1 RBC 2.81 L Hgb 11.2 L Hct 32.4 L MCV 115.3 H MCH 39.9 H MCHC 34.6 RDW 16.9 H Plt Count 151 MPV 12.1 H Neut % (Auto) 90.8 Lymph % (Auto) 2.0 [place] % (Auto) 5.0 Eos % (Auto) 0.1 Baso % (Auto) 0.3 Neut # (Auto) 8.28 H Lymph # (Auto) 0.2 L [place] # (Auto) 0.5 Eos # (Auto) 0.0 Baso # (Auto) 0.0 Nucleated RBC % (auto) 7.2 Nucleated RBCs # 0.7 PT 16.10 H INR 1.25 H APTT 28.5 Sodium 140 Potassium 4.5 Chloride 105 Carbon Dioxide 26 Anion Gap 13.5 BUN 20 Creatinine 0.8 GFR Calculation Not Reportable Glucose 209 H POC Glucose Calculated Osmolality 299 H Uric Acid Calcium 8.4 L Phosphorus Magnesium Total Bilirubin 2.6 H AST 40 ALT 36 Alkaline Phosphatase 137 H Troponin T Baseline Troponin T 120 Minute Delta Troponin T Troponin T Hi Sens 6Hr Troponin T Hi Sens 6Hr Delta Total Protein 6.1 L Albumin 3.2 L Globulin 2.9 TSH Urine Color Urine Appearance Urine pH Ur Specific [place] Urine Protein Urine Glucose (UA) Urine Ketones Urine Blood Urine Nitrate Urine Bilirubin Urine Urobilinogen Ur Leukocyte Esterase Urine RBC Urine WBC Ur Squamous Epith Cells Amorphous Sediment Urine Bacteria Urine Mucus 03/18/21 03/18/21 03/19/21 18:02 21:07 03:42 WBC RBC Hgb Hct MCV MCH MCHC RDW Plt Count MPV Neut % (Auto) Lymph % (Auto) [place] % (Auto) Eos % (Auto) Baso % (Auto) Neut # (Auto) Lymph # (Auto) [place] # (Auto) Eos # (Auto) Baso # (Auto) Nucleated RBC % (auto) Nucleated RBCs # PT INR APTT Sodium Potassium Chloride Carbon Dioxide Anion Gap BUN Creatinine GFR Calculation Glucose POC Glucose Calculated Osmolality Uric Acid Calcium Phosphorus Magnesium Total Bilirubin AST ALT Alkaline Phosphatase Troponin T Baseline 42 H Troponin T 120 Minute 35.38 H Delta Troponin T -6.62 L Troponin T Hi Sens 6Hr 59.71 H Troponin T Hi Sens 6Hr Delta 24.33 H* Total Protein Albumin Globulin TSH Urine Color Urine Appearance Urine pH Ur Specific [place] Urine Protein Urine Glucose (UA) Urine Ketones Urine Blood Urine Nitrate Urine Bilirubin Urine Urobilinogen Ur Leukocyte Esterase Urine RBC Urine WBC Ur Squamous Epith Cells Amorphous Sediment Urine Bacteria Urine Mucus 03/19/21 03/19/21 03/19/21 03:42 03:42 03:42 WBC 12.2 H RBC 2.79 L Hgb 11.2 L Hct 32.2 L MCV 115.4 H MCH 40.1 H MCHC 34.8 RDW 16.9 H Plt Count 142 MPV 11.9 H Neut % (Auto) 90.5 Lymph % (Auto) 2.0 [place] % (Auto) 6.2 Eos % (Auto) 0.0 Baso % (Auto) 0.2 Neut # (Auto) 11.06 H Lymph # (Auto) 0.3 L [place] # (Auto) 0.8 Eos # (Auto) 0.0 Baso # (Auto) 0.0 Nucleated RBC % (auto) 4.7 Nucleated RBCs # 0.6 PT 16.40 H INR 1.29 H APTT Sodium 136 Potassium 4.6 Chloride 103 Carbon Dioxide 22 Anion Gap 15.6 BUN 22 Creatinine 0.7 GFR Calculation Not Reportable Glucose 176 H POC Glucose Calculated Osmolality 290 Uric Acid 3.5 Calcium 8.3 L Phosphorus Magnesium 1.7 Total Bilirubin 3.6 H AST 35 ALT 35 Alkaline Phosphatase 128 Troponin T Baseline Troponin T 120 Minute Delta Troponin T Troponin T Hi Sens 6Hr Troponin T Hi Sens 6Hr Delta Total Protein 6.0 L Albumin 3.1 L Globulin 2.9 TSH 3.00 Urine Color Urine Appearance Urine pH Ur Specific [place] Urine Protein Urine Glucose (UA) Urine Ketones Urine Blood Urine Nitrate Urine Bilirubin Urine Urobilinogen Ur Leukocyte Esterase Urine RBC Urine WBC Ur Squamous Epith Cells Amorphous Sediment Urine Bacteria Urine Mucus 03/19/21 03/19/21 03/19/21 07:28 11:37 12:55 WBC RBC Hgb Hct MCV MCH MCHC RDW Plt Count MPV Neut % (Auto) Lymph % (Auto) [place] % (Auto) Eos % (Auto) Baso % (Auto) Neut # (Auto) Lymph # (Auto) [place] # (Auto) Eos # (Auto) Baso # (Auto) Nucleated RBC % (auto) Nucleated RBCs # PT INR APTT Sodium Potassium Chloride Carbon Dioxide Anion Gap BUN Creatinine GFR Calculation Glucose POC Glucose 168 H 148 H Calculated Osmolality Uric Acid Calcium Phosphorus Magnesium Total Bilirubin AST ALT Alkaline Phosphatase Troponin T Baseline Troponin T 120 Minute Delta Troponin T Troponin T Hi Sens 6Hr Troponin T Hi Sens 6Hr Delta Total Protein Albumin Globulin TSH Urine Color Dark yellow Urine Appearance Cloudy Urine pH 7 Ur Specific [place] 1.010 Urine Protein Neg Urine Glucose (UA) Norm Urine Ketones 1+ H Urine Blood Neg Urine Nitrate Positive H Urine Bilirubin Neg Urine Urobilinogen 1 H Ur Leukocyte Esterase Trace H Urine RBC 0-4 H Urine WBC 5-10 H Ur Squamous Epith Cells 0-4 H Amorphous Sediment Not Reportable Urine Bacteria 2+ H Urine Mucus 1+ 03/19/21 03/20/21 03/20/21 20:13 04:30 04:30 WBC 10.3 H RBC 2.46 L Hgb 9.7 L Hct 28.6 L MCV 116.3 H MCH 39.4 H MCHC 33.9 RDW 17.2 H Plt Count 120 L MPV 12.1 H Neut % (Auto) 83.8 Lymph % (Auto) 6.9 [place] % (Auto) 7.7 Eos % (Auto) 0.5 Baso % (Auto) 0.2 Neut # (Auto) 8.59 H Lymph # (Auto) 0.7 L [place] # (Auto) 0.8 Eos # (Auto) 0.1 Baso # (Auto) 0.0 Nucleated RBC % (auto) 6.9 Nucleated RBCs # 0.7 PT INR APTT Sodium 136 Potassium 4.1 Chloride 106 Carbon Dioxide 22 Anion Gap 12.1 BUN 27 H Creatinine 0.7 GFR Calculation Not Reportable Glucose 129 H POC Glucose 197 H Calculated Osmolality 289 Uric Acid Calcium 8.0 L Phosphorus 2.2 L Magnesium 1.9 Total Bilirubin 3.3 H AST 41 H ALT 26 Alkaline Phosphatase 101 Troponin T Baseline Troponin T 120 Minute Delta Troponin T Troponin T Hi Sens 6Hr Troponin T Hi Sens 6Hr Delta Total Protein 5.1 L Albumin 2.7 L Globulin 2.4 TSH Urine Color Urine Appearance Urine pH Ur Specific [place] Urine Protein Urine Glucose (UA) Urine Ketones Urine Blood Urine Nitrate Urine Bilirubin Urine Urobilinogen Ur Leukocyte Esterase Urine RBC Urine WBC Ur Squamous Epith Cells Amorphous Sediment Urine Bacteria Urine Mucus 03/20/21 03/20/21 03/20/21 04:30 06:41 11:18 WBC RBC Hgb Hct MCV MCH MCHC RDW Plt Count MPV Neut % (Auto) Lymph % (Auto) [place] % (Auto) Eos % (Auto) Baso % (Auto) Neut # (Auto) Lymph # (Auto) [place] # (Auto) Eos # (Auto) Baso # (Auto) Nucleated RBC % (auto) Nucleated RBCs # PT 17.60 H INR 1.40 H APTT Sodium Potassium Chloride Carbon Dioxide Anion Gap BUN Creatinine GFR Calculation Glucose POC Glucose 126 H 131 H Calculated Osmolality Uric Acid Calcium Phosphorus Magnesium Total Bilirubin AST ALT Alkaline Phosphatase Troponin T Baseline Troponin T 120 Minute Delta Troponin T Troponin T Hi Sens 6Hr Troponin T Hi Sens 6Hr Delta Total Protein Albumin Globulin TSH Urine Color Urine Appearance Urine pH Ur Specific [place] Urine Protein Urine Glucose (UA) Urine Ketones Urine Blood Urine Nitrate Urine Bilirubin Urine Urobilinogen Ur Leukocyte Esterase Urine RBC Urine WBC Ur Squamous Epith Cells Amorphous Sediment Urine Bacteria Urine Mucus Cardiac Studies: No Data to Display
--- NOTE | 2021-03-20 13:13 | ANES.PREANE2 ---
Pre-Anesthetic Assessment Pre-Anesthetic Assessment: Height/Weight: Height 1.85 m Weight 110.178 kg Temp Pulse Resp BP Pulse Ox 99.5 F 89 18 183/83 97 03/20/21 12:48 03/20/21 12:48 03/20/21 12:48 03/20/21 12:48 03/20/21 12:48 Proposed Procedure: Operation Date: 03/20/21 12:30 Proposed Procedures p Posterior Lumbar Interbody Fusion T9-L1(Not Applicable) - Gianni Bowen DO Last intake: Intake Last Liquid Date 03/20/21 Last Liquid Time 10:30 Last Solid Date 03/18/21 Last Solid Time 18:00 Meds/Allergies Current Medications: Current Medications Generic Name Dose Route Start Last Admin Trade Name Freq PRN Reason Stop Dose Admin Allopurinol 300 mg 03/19/21 09:00 03/20/21 11:31 Allopurinol 300 Mg Tablet PO Not Given DAILY PHILLIP Azathioprine 50 mg 03/19/21 09:00 03/20/21 11:31 Azathioprine 50 Mg Tablet PO Not Given DAILY PHILLIP Calcium Carbonate 1 each 03/19/21 09:00 03/20/21 11:31 Calcium Carb-Vit D 600mg/400unit 1 Tablet PO Not Given BID PHILLIP Calcium Carbonate 500 mg 03/19/21 15:09 03/19/21 15:14 Calcium Carbonat e 500 Mg Chew Tabl et PO 500 mg Q4H PRN Administration INDIGESTION Docusate Sodium 100 mg 03/19/21 09:00 03/20/21 11:32 Docusate Sodium 100 Mg Capsule PO Not Given BID PHILLIP Gabapentin 100 mg 03/19/21 09:00 03/20/21 11:32 Gabapentin 100 M g Capsule PO Not Given TID PHILLIP Dextrose/Sodium Ch loride 1,000 mls @ 100 m ls/hr 03/19/21 15:15 03/20/21 10:47 Dextrose 5%-Sod Chloride 0.9% IV 100 mls/hr .Q10H PHILLIP Administration Sodium Chloride 1,000 mls @ 30 ml s/hr 03/20/21 12:30 03/20/21 12:58 Sodium Chloride 0.9% IV 30 mls/hr .Q24H PHILLIP Administration Insulin Human Lisp ro 0 unit 03/19/21 21:00 03/20/21 11:36 Insulin Lispro 1 00 Unit/1 Ml SUBCUT Not Given BEDTIME [facility] Protocol Insulin Human Lisp ro 0 unit 03/19/21 08:00 03/20/21 11:37 Insulin Lispro 1 00 Unit/1 Ml SUBCUT Not Given TIDWM [facility] Protocol Metoprolol Tartrat e 25 mg 03/19/21 21:00 03/20/21 10:50 Metoprolol Tartr ate 25 Mg Tablet PO 25 mg BID@0900,2100 PHILLIP Administration Non-Formulary Medi cation 1 gm 03/19/21 09:00 03/20/21 11:32 Methenamine Kamala urate PO Not Given BID PHILLIP Ondansetron HCl 4 mg 03/19/21 00:17 03/19/21 04:02 Ondansetron 2 Mg /Ml Sdv 2 Ml IVP 4 mg Q6H PRN Administration NAUSEA AND VOMITI NG Pantoprazole Sodiu m 40 mg 03/19/21 09:00 03/20/21 11:[address] 40 Mg Tablet PO Not Given DAILY PHILLIP Prednisone 10 mg 03/19/21 09:00 03/20/21 11:32 Prednisone 10 Mg Tablet PO Not Given DAILY PHILLIP PFSH Anesthesia PFSH: Medical History (Updated 03/19/21 @ 15:25 by SARITA Steward) Autoimmune hepatitis Azathioprine and prednisone Colon cancer Gout History of DVT (deep vein thrombosis) recurrent History of stress test Hypertension Recurrent UTI Urethral stricture Surgical History (Updated 03/19/21 @ 00:01 by Alaina Montana MD) H/O neck surgery H/O partial resection of colon due to cancer H/O total knee replacement right H/O transurethral resection of prostate History of bladder surgery History of cataract surgery History of cholecystectomy History of skin graft Family History Father , at age 65 Cancer lung Mother , at age 88 Alzheimer's dementia Social History (Updated 03/19/21 @ 00:57 by Alaina Montana MD) Smoking and tobacco status: never smoked Alcohol intake: never Substance/Drug Use: never Marital status: Current occupational status: retired Data Anesthesia CBC & Chem 7: 03/20/21 04:30 03/20/21 04:30 Other Labs: Laboratory Results - last 48 hr 03/18/21 03/18/21 03/18/21 18:02 18:02 18:02 WBC 9.1 RBC 2.81 L Hgb 11.2 L Hct 32.4 L MCV 115.3 H MCH 39.9 H MCHC 34.6 RDW 16.9 H Plt Count 151 MPV 12.1 H Neut % (Auto) 90.8 Lymph % (Auto) 2.0 Patrick % (Auto) 5.0 Eos % (Auto) 0.1 Baso % (Auto) 0.3 Neut # (Auto) 8.28 H Lymph # (Auto) 0.2 L Patrick # (Auto) 0.5 Eos # (Auto) 0.0 Baso # (Auto) 0.0 Nucleated RBC % (auto) 7.2 Nucleated RBCs # 0.7 PT 16.10 H INR 1.25 H APTT 28.5 Sodium 140 Potassium 4.5 Chloride 105 Carbon Dioxide 26 Anion Gap 13.5 BUN 20 Creatinine 0.8 GFR Calculation Not Reportable Glucose 209 H POC Glucose Calculated Osmolality 299 H Uric Acid Calcium 8.4 L Phosphorus Magnesium Total Bilirubin 2.6 H AST 40 ALT 36 Alkaline Phosphatase 137 H Troponin T Baseline Troponin T 120 Minute Delta Troponin T Troponin T Hi Sens 6Hr Troponin T Hi Sens 6Hr Delta Total Protein 6.1 L Albumin 3.2 L Globulin 2.9 TSH Urine Color Urine Appearance Urine pH Ur Specific [place] Urine Protein Urine Glucose (UA) Urine Ketones Urine Blood Urine Nitrate Urine Bilirubin Urine Urobilinogen Ur Leukocyte Esterase Urine RBC Urine WBC Ur Squamous Epith Cells Amorphous Sediment Urine Bacteria Urine Mucus 03/18/21 03/18/21 03/19/21 18:02 21:07 03:42 WBC RBC Hgb Hct MCV MCH MCHC RDW Plt Count MPV Neut % (Auto) Lymph % (Auto) Patrick % (Auto) Eos % (Auto) Baso % (Auto) Neut # (Auto) Lymph # (Auto) Patrick # (Auto) Eos # (Auto) Baso # (Auto) Nucleated RBC % (auto) Nucleated RBCs # PT INR APTT Sodium Potassium Chloride Carbon Dioxide Anion Gap BUN Creatinine GFR Calculation Glucose POC Glucose Calculated Osmolality Uric Acid Calcium Phosphorus Magnesium Total Bilirubin AST ALT Alkaline Phosphatase Troponin T Baseline 42 H Troponin T 120 Minute 35.38 H Delta Troponin T -6.62 L Troponin T Hi Sens 6Hr 59.71 H Troponin T Hi Sens 6Hr Delta 24.33 H* Total Protein Albumin Globulin TSH Urine Color Urine Appearance Urine pH Ur Specific [place] Urine Protein Urine Glucose (UA) Urine Ketones Urine Blood Urine Nitrate Urine Bilirubin Urine Urobilinogen Ur Leukocyte Esterase Urine RBC Urine WBC Ur Squamous Epith Cells Amorphous Sediment Urine Bacteria Urine Mucus 03/19/21 03/19/21 03/19/21 03:42 03:42 03:42 WBC 12.2 H RBC 2.79 L Hgb 11.2 L Hct 32.2 L MCV 115.4 H MCH 40.1 H MCHC 34.8 RDW 16.9 H Plt Count 142 MPV 11.9 H Neut % (Auto) 90.5 Lymph % (Auto) 2.0 Patrick % (Auto) 6.2 Eos % (Auto) 0.0 Baso % (Auto) 0.2 Neut # (Auto) 11.06 H Lymph # (Auto) 0.3 L Patrick # (Auto) 0.8 Eos # (Auto) 0.0 Baso # (Auto) 0.0 Nucleated RBC % (auto) 4.7 Nucleated RBCs # 0.6 PT 16.40 H INR 1.29 H APTT Sodium 136 Potassium 4.6 Chloride 103 Carbon Dioxide 22 Anion Gap 15.6 BUN 22 Creatinine 0.7 GFR Calculation Not Reportable Glucose 176 H POC Glucose Calculated Osmolality 290 Uric Acid 3.5 Calcium 8.3 L Phosphorus Magnesium 1.7 Total Bilirubin 3.6 H AST 35 ALT 35 Alkaline Phosphatase 128 Troponin T Baseline Troponin T 120 Minute Delta Troponin T Troponin T Hi Sens 6Hr Troponin T Hi Sens 6Hr Delta Total Protein 6.0 L Albumin 3.1 L Globulin 2.9 TSH 3.00 Urine Color Urine Appearance Urine pH Ur Specific [place] Urine Protein Urine Glucose (UA) Urine Ketones Urine Blood Urine Nitrate Urine Bilirubin Urine Urobilinogen Ur Leukocyte Esterase Urine RBC Urine WBC Ur Squamous Epith Cells Amorphous Sediment Urine Bacteria Urine Mucus 03/19/21 03/19/21 03/19/21 07:28 11:37 12:55 WBC RBC Hgb Hct MCV MCH MCHC RDW Plt Count MPV Neut % (Auto) Lymph % (Auto) Patrick % (Auto) Eos % (Auto) Baso % (Auto) Neut # (Auto) Lymph # (Auto) Patrick # (Auto) Eos # (Auto) Baso # (Auto) Nucleated RBC % (auto) Nucleated RBCs # PT INR APTT Sodium Potassium Chloride Carbon Dioxide Anion Gap BUN Creatinine GFR Calculation Glucose POC Glucose 168 H 148 H Calculated Osmolality Uric Acid Calcium Phosphorus Magnesium Total Bilirubin AST ALT Alkaline Phosphatase Troponin T Baseline Troponin T 120 Minute Delta Troponin T Troponin T Hi Sens 6Hr Troponin T Hi Sens 6Hr Delta Total Protein Albumin Globulin TSH Urine Color Dark yellow Urine Appearance Cloudy Urine pH 7 Ur Specific [place] 1.010 Urine Protein Neg Urine Glucose (UA) Norm Urine Ketones 1+ H Urine Blood Neg Urine Nitrate Positive H Urine Bilirubin Neg Urine Urobilinogen 1 H Ur Leukocyte Esterase Trace H Urine RBC 0-4 H Urine WBC 5-10 H Ur Squamous Epith Cells 0-4 H Amorphous Sediment Not Reportable Urine Bacteria 2+ H Urine Mucus 1+ 03/19/21 03/20/21 03/20/21 20:13 04:30 04:30 WBC 10.3 H RBC 2.46 L Hgb 9.7 L Hct 28.6 L MCV 116.3 H MCH 39.4 H MCHC 33.9 RDW 17.2 H Plt Count 120 L MPV 12.1 H Neut % (Auto) 83.8 Lymph % (Auto) 6.9 Patrick % (Auto) 7.7 Eos % (Auto) 0.5 Baso % (Auto) 0.2 Neut # (Auto) 8.59 H Lymph # (Auto) 0.7 L Patrick # (Auto) 0.8 Eos # (Auto) 0.1 Baso # (Auto) 0.0 Nucleated RBC % (auto) 6.9 Nucleated RBCs # 0.7 PT INR APTT Sodium 136 Potassium 4.1 Chloride 106 Carbon Dioxide 22 Anion Gap 12.1 BUN 27 H Creatinine 0.7 GFR Calculation Not Reportable Glucose 129 H POC Glucose 197 H Calculated Osmolality 289 Uric Acid Calcium 8.0 L Phosphorus 2.2 L Magnesium 1.9 Total Bilirubin 3.3 H AST 41 H ALT 26 Alkaline Phosphatase 101 Troponin T Baseline Troponin T 120 Minute Delta Troponin T Troponin T Hi Sens 6Hr Troponin T Hi Sens 6Hr Delta Total Protein 5.1 L Albumin 2.7 L Globulin 2.4 TSH Urine Color Urine Appearance Urine pH Ur Specific [place] Urine Protein Urine Glucose (UA) Urine Ketones Urine Blood Urine Nitrate Urine Bilirubin Urine Urobilinogen Ur Leukocyte Esterase Urine RBC Urine WBC Ur Squamous Epith Cells Amorphous Sediment Urine Bacteria Urine Mucus 03/20/21 03/20/21 03/20/21 04:30 06:41 11:18 WBC RBC Hgb Hct MCV MCH MCHC RDW Plt Count MPV Neut % (Auto) Lymph % (Auto) Patrick % (Auto) Eos % (Auto) Baso % (Auto) Neut # (Auto) Lymph # (Auto) Patrick # (Auto) Eos # (Auto) Baso # (Auto) Nucleated RBC % (auto) Nucleated RBCs # PT 17.60 H INR 1.40 H APTT Sodium Potassium Chloride Carbon Dioxide Anion Gap BUN Creatinine GFR Calculation Glucose POC Glucose 126 H 131 H Calculated Osmolality Uric Acid Calcium Phosphorus Magnesium Total Bilirubin AST ALT Alkaline Phosphatase Troponin T Baseline Troponin T 120 Minute Delta Troponin T Troponin T Hi Sens 6Hr Troponin T Hi Sens 6Hr Delta Total Protein Albumin Globulin TSH Urine Color Urine Appearance Urine pH Ur Specific [place] Urine Protein Urine Glucose (UA) Urine Ketones Urine Blood Urine Nitrate Urine Bilirubin Urine Urobilinogen Ur Leukocyte Esterase Urine RBC Urine WBC Ur Squamous Epith Cells Amorphous Sediment Urine Bacteria Urine Mucus Cardiac Studies: No Data to Display
[2021-03-20] MEDS: vancomycin 1,000 MG SDV 2000 MG XX (16:45)
--- NOTE | 2021-03-20 17:00 | PM.OP ---
Operative Report Date of procedure: March 20, 2021 Pre-op Diagnosis: T 11 fracture Post-op diagnosis: same Procedure Done: 1. T8 - L1 posterior spine fusion 2. T8-L1 instrumentation 3. Computer navigation 4. allograft Surgeon: Gianni Bowen Printed Circuit Board Panels Developer: Rony Marin Anesthesia: General Estimated blood loss (mL): 200 Condition: stable Disposition: PACU Procedure: 1. T8 - L1 posterior spine fusion 2. T8-L1 instrumentation 3. Computer navigation 4. allograft Patient was brought to the operative suite after undergoing anesthesia patient was flipped into the prone position. All areas impingement were well-padded. Skin incision was made from T8 down to L1. Thoracolumbar fascia was split. Subperiosteal dissection was made out to the transverse processes of T8 down L1. Once is completed attention was then brought to placing the computer navigation. This was done by placing the fiducial on the spinous process of L1. This was linked to the computer. And then the C-arm was used to spin around the patient. And this information was brought into the computer. Extension was brought to placing pedicle screws from T8 down to L1. Skipping the T11 fracture site. Screws were placed by using the Wavebornshift awl linked to the computer navigation. Followed by the pedicle probe. Followed by the pedicle screws linked to the computer navigation. The screws measured with navigation. Once all the screws were placed. C-arm was brought in to ensure the appropriate position. Rods were then placed from T8 down to L1. Caps were placed onto each screw tulip. And locked in position. This was done bilaterally. AP and lateral fluoroscopy were used to ensure that the screws were in the prone position and rods and fracture in good position. The bone was then decorticated with a high-speed bur and bone graft allograft osteocell was used to pack the lamina all the way down to L1. From T8. Vancomycin powder was placed deep drain was placed in the wound was closed in layered fashion starting with the thoracolumbar fascia with 0 Vicryl skin with 2-0 Vicryl and Monocryl. Steri-Strips were placed sterile dressing was applied patient was transferred to the PACU in stable condition.
--- NOTE | 2021-03-20 18:57 | ANE.PACU2 ---
Inpatient post-anesthesia follow up: Airway intact: Yes Vital signs: Temperature 97.8 F Pulse Rate [Monito r] 105 Pulse Rate 66 Respiratory Rate 22 Blood Pressure [Ri ght Arm] 126/80 Blood Pressure 143/73 Pulse Oximetry 92 Oxygen Delivery Me thod Room Air Oxygen Flow Rate 8 Fraction of Inspir ed Oxygen Hydration adequate: Yes Nausea and vomiting: No Pain level: 2 Mental status: Baseline
--- NOTE | 2021-03-20 18:59 | PC.NURSE ---
Transfer Note Patient transferred to CSU 112-1 from Pacu via Bed. Handoff received from Justin. Patient oriented to environment and equipment. Covering service notified. Orders reviewed and will continue to monitor. Family and/or visitor services representative notified.
[2021-03-20] MEDS: morphine 4 mg/mL SDV 1 mL 1 MG IVP (19:51)
[2021-03-20] MEDS: haloperidol inj 5 mg/mL INJ 1 mL IVP ×2 (20:09→23:04)
[2021-03-20] MEDS: lactated ringers 1,000 ML 90 ML IV (22:15)
[2021-03-20 22:48] LABS: Basophils % 0.2 %; Eosinophils % 0.1 %; Hematocrit 26.3 % (42.0-52.0); Hemoglobin 8.7 g/dL (11.7-16.6); Lymphocytes # 0.3 10^3/uL (0.8-4.8); Lymphocytes % 2.5 %; Mean Corpuscular HGB Conc 33.1 g/dL (30.0-36.0); Mean Corpuscular Hemoglobin 39.5 pg (28.0-34.0); Mean Corpuscular Volume 119.5 fl (80-94); Mean Platelet Volume 11.9 fL (7.4-10.4); Monocytes # 0.8 10^3/uL (0.2-0.9); Monocytes % 7.7 %; Neutrophils # 9.09 10^3/uL (1.8-7.7); Neutrophils % 88.3 %; Nucleated Red Blood Cells # 0.8 /100WBC; Nucleated Red Blood Cells % 7.7 %; Platelet Count 104 10^3/cmm (130-400); Red Cell Distribution Width 17.3 % (12.1-15.1); White Blood Count 10.3 10^3/uL (4.0-10.0)
[2021-03-20 23:04] LABS: Lactate (Lactic Acid level) 3.1 mmol/L (0.5-2.2)
[2021-03-20 23:05] LABS: Alanine Aminotransferase 23 U/L (0-41); Albumin Level 2.6 g/dL (3.5-5.2); Alkaline Phosphatase 94 IU/L (40-130); Anion Gap 13.5 (5-19); Aspartate Amino Transferase 35 U/L (0-40); Blood Urea Nitrogen 30 mg/dL (8-23); Calcium 7.8 mg/dL (8.5-10.5); Carbon Dioxide 22 mmol/L (22-29); Chloride 107 mmol/L (98-107); Globulin 2.1 g/dL (1.3-4.6); Glucose 151 mg/dL (65-115); Osmolality Calculated 295 mOsm/kg (285-295); Potassium 4.5 mmol/L (3.5-5.1); Sodium 138 mmol/L (136-145); Total Bilirubin 2.8 mg/dL (0.15-1.2); Total Protein 4.7 g/dL (6.6-8.7)
[2021-03-20 23:13] LABS: Glucose Point of Care 206 mg/dL (70-110)
[2021-03-20] MEDS: insulin lispro 100 unit/1 mL SUBCUT (23:16)
[2021-03-21] VITALS (26 sets, daily range): BP systolic 95–147; BP diastolic 51–73; PULSE 73–82; RESP 12–26; TEMP 36.2–37.4; O2SAT 96–100
[2021-03-21] MEDS: morphine 4 mg/mL SDV 1 mL 1 MG IVP ×3 (00:04→21:51)
--- NOTE | 2021-03-21 01:18 | PC.NURSE ---
Pt began to wake up around 1944. Pt was confused,combative, restless and trying to get out of bed. Pt is on spinal precautions. Morphine was given to try to control patients pain. Pt was still restless and combative. Called Dr. Jensen and received order for Haldol 0.5 mg q 4 hours. Around [address] Bowen regarding pt having attempted to get out of bed and being restless, confused. Notifed Jessi pt was moving legs and not following spinal precautions. Notified Dr. Bowen that I was unable to access surgical wound to back due to pts confused state. Dr. Bowen acknowledged pts current status. No new orders received. I also notifed Dr. Bowen of the output from pts wound drainage reservoir. He would like pt to have about 100mls/hour out of drain.
[2021-03-21] MEDS: cefTRIAXone 1,000 MG in sodium chloride 0.9% (plus) 50 ML 100 MG IV (02:41)
[2021-03-21 04:28] LABS: Basophils % 0.3 %; Eosinophils % 0.2 %; Hematocrit 25.2 % (42.0-52.0); Hemoglobin 8.7 g/dL (11.7-16.6); Lymphocytes # 0.6 10^3/uL (0.8-4.8); Lymphocytes % 5.8 %; Mean Corpuscular HGB Conc 34.5 g/dL (30.0-36.0); Mean Corpuscular Hemoglobin 40.8 pg (28.0-34.0); Mean Corpuscular Volume 118.3 fl (80-94); Monocytes # 0.8 10^3/uL (0.2-0.9); Neutrophils % 84.8 %; Nucleated Red Blood Cells # 0.9 /100WBC; Nucleated Red Blood Cells % 9.2 %; Platelet Count 103 10^3/cmm (130-400); Red Blood Count 2.13 10^6/uL (4.1-5.3); Red Cell Distribution Width 17.1 % (12.1-15.1)
[2021-03-21 04:40] LABS: INR 1.52 (0.8-1.2)
[2021-03-21 04:51] LABS: Anion Gap 8.5 (5-19); Blood Urea Nitrogen 31 mg/dL (8-23); Calcium 7.6 mg/dL (8.5-10.5); Carbon Dioxide 26 mmol/L (22-29); Chloride 109 mmol/L (98-107); Glucose 110 mg/dL (65-115); Osmolality Calculated 295 mOsm/kg (285-295); Potassium 4.5 mmol/L (3.5-5.1); Sodium 139 mmol/L (136-145)
[2021-03-21] MEDS: enoxaparin 40 mg/0.4 mL Syringe SUBCUT (06:56)
[2021-03-21 07:11] LABS: Glucose Point of Care 109 mg/dL (70-110)
--- NOTE | 2021-03-21 07:58 | PC.NURSE ---
Shift Note Frequent safety and comfort rounds continue. Doctor notified of restlessness and additional meds were ordered. See MAR. Orders and nursing care completed as indicated. Pt confused throughout the night until 0600. Pt was able to state name, location, birthday, and current year. Patient monitored for response to intervention and treatment. Education provided includes spinal precautions. Patient needs reinforcement.
--- NOTE | 2021-03-21 08:05 | P.PN_ITS ---
Documented by User: SARITA Steward 03/21/21 08:10 Subjective Subjective: Interval history: POD 1 Patient more alert this morning. Nurses are present patient is moving his legs without any obvious distress. Vitals/I&O/Wt Last Vital Signs Temp 99.3 F 03/21/21 01:00 Pulse 78 03/21/21 06:00 Resp 17 03/21/21 05:30 BP 139/66 03/21/21 06:00 Pulse Ox 98 03/21/21 05:30 03/20/21 03/21/21 03/21/21 22:59 06:59 14:59 Intake Total 237.5 / 794.167 110 / 904.167 60 / 60 Output Total 150 / 150 880 / 1030 Balance 87.5 / 644.167 -770 / -125.833 60 Physical Exam Narrative: EXAM NARRATIVE: He is alert oriented x3 has a good general appearance. Incision is clean and dry. Hemovac drain with moderate output. He is moving both lower extremities with normal sensation light touch. Still has compression stocking with ulcers on the right ankle. Left foot is warm wiggles all toes. Urinary Catheter Management^: Juarez: Cath Placed During This Visit: yes Reason for Continuing Indwelling Catheter: Accurate Measurement of Urinary Output in Critically Ill Patients Urinary Catheter Date of Insertion: 03/19/21 Urinary Catheter Time of Insertion: 17:00 Data : 03/21/21 04:10 03/21/21 04:10 A&P Assessment and plan (1) Thoracic spine fracture: If the Hemovac drain continues with output instructed the nurses to take it to gravity. Continue with physical therapy to work on mobilizing to a chair and then in the halls. Discontinue the Juarez catheter today we will hold the Hemovac until tomorrow. Continue with incentive spirometry for pulmonary toilet. 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
[2021-03-21] MEDS: metoprolol tartrate 25 mg Tablet PO (10:02)
[2021-03-21] MEDS: calcium carb-vit d 600mg/400unit 1 Tablet 1 EACH PO ×2 (10:02→17:45)
[2021-03-21] MEDS: docusate sodium 100 mg Capsule PO ×2 (10:03→17:45)
[2021-03-21] MEDS: predniSONE 10 mg Tablet PO (10:03)
[2021-03-21] MEDS: pantoprazole DR 40 mg Tablet PO (10:03)
[2021-03-21] MEDS: gabapentin 100 mg Capsule PO (10:03)
[2021-03-21] MEDS: allopurinol 300 mg Tablet PO (10:04)
[2021-03-21] MEDS: HYDROcodone-acetaminophen 5-325 mg Tablet PO (10:28)
--- NOTE | 2021-03-21 11:02 | PC.NURSE ---
Called wound care clinic Talked to ALFONSO Reyes and received order from Dr. Chris to keep pt's dressing on his lower legs until Saturday. Wound care instructions on Saturday- cleanse right ankle wound w/ saline, then wet to dry dressings wrap with Juzos compression wraps after. can bring the supplies if available.
--- NOTE | 2021-03-21 11:30 | PC.NURSE ---
Up with PT assistance Pt stood up with physical therapist in room using walker. Pt tolerated the activity fairly with complains of weakness and pain. Pt assisted back to bed and positioned lateral to his left side.
[2021-03-21 12:14] LABS: Hematocrit 26.7 % (42.0-52.0); Hemoglobin 8.6 g/dL (11.7-16.6)
--- NOTE | 2021-03-21 12:20 | PC.SOCIAL ---
Pg 2 IMM Explained to pt's family, Pg 2 IMM. No questions voiced. Provided pt/family a copy. Initialed, dated, & timed a copy & placed in chart.
--- NOTE | 2021-03-21 12:43 | P.PN_ITS ---
Subjective Subjective: Interval history: Patient was seen and examined overnight his systolic blood pressure was around 70s which improved with fluid resuscitation Patient is not complaining active pain He is less confused as compared to yesterday Hemoglobin is stable he is orthostatics positive when he worked with the physical therapist, plan to remove Hemovac later by orthopedics, wound care also evaluated him and recommended to keep right leg dressing on until Saturday Vitals/I&O/Wt Last Vital Signs Temp 99.3 F 03/21/21 01:00 Pulse 82 03/21/21 08:00 Resp 16 03/21/21 08:00 BP 127/66 03/21/21 08:00 Pulse Ox 100 03/21/21 08:00 03/20/21 03/21/21 03/21/21 22:59 06:59 14:59 Intake Total 237.5 / 794.167 110 / 904.167 60 / 60 Output Total 150 / 150 880 / 1030 Balance 87.5 / 644.167 -770 / -125.833 60 / Physical Exam Narrative: EXAM NARRATIVE: Patient was laying comfortably in his bed not complaining of back problems all pain Hemovac with minimal blood drained Able to move his toes Right leg dressing in place, EOMI, PERRLA Less confused as compared to yesterday Nonfocal neuro exam Extremity hydrated dry cracked lips Is able to take sips of water without any choking or aspiration Urinary Catheter Management^: Juarez: Cath Placed During This Visit: yes Reason for Continuing Indwelling Catheter: Accurate Measurement of Urinary Output in Critically Ill Patients Urinary Catheter Date of Insertion: 03/19/21 Urinary Catheter Time of Insertion: 17:00 Data : 03/21/21 11:58 03/21/21 04:10 Micro: Microbiology 03/19/21 12:55 Urine Culture - Final Urine,Clean Catch A&P Assessment and plan (1) Acute blood loss anemia: Status: Acute (2) Fusion of spine of thoracolumbar region: Status: Acute (3) Chronic anticoagulation: Status: Acute (4) Fracture, thoracic vertebra: Status: Acute Qualifiers: Encounter type: initial encounter Fracture morphology: other fracture Fracture type: closed Thoracic vertebra fracture level: T11 Qualified Code(s): S22.088A - Other fracture of T11-T12 vertebra, initial encounter for closed fracture (5) History of DVT (deep vein thrombosis): Status: Chronic (6) Atrial fibrillation: Status: Acute Qualifiers: Atrial fibrillation type: unspecified Qualified Code(s): I48.91 - Unspecified atrial fibrillation Additional A&P Information Blood loss anemia with orthostasis however hemoglobin has stayed stable minimal blood loss noted with Hemovac which will be removed by orthopedics We will transfuse if hemoglobin less than 7 Right leg edema, wound has not been examined, she he has compression wraps, evaluated by wound care nurse, dressing to be changed on Saturday Dressing is not soaked Postop day 1 fusion of thoracolumbar spine Juarez to be removed today Work with physical therapy Positive orthostasis during physical therapy evaluation Repeat H&H Continue LR at 30 cc/h History of urethral stricture he does self-catheterization, will do voiding trial today Age-related confusion, hospital with a delirium, improved most likely his confusion got worsened after getting benzodiazepines yesterday, benzodiazepines were given for MRI Full code Cardiac diet DVT prophylaxis to be initiated tomorrow monitor H&H for now Subtherapeutic INR, bridged with Lovenox if hemoglobin stays stable Attestations Medical Necessity Statement*: Continue medical management Time Spent in Patient Care: 16 - 35 minutes Coding Level of Care Code Acute 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
[2021-03-21 13:11] LABS: Glucose Point of Care 121 mg/dL (70-110)
[2021-03-21] MEDS: lactated ringers 1,000 ML 30 ML IV (13:36)
--- NOTE | 2021-03-21 14:00 | NUR.SHIFT ---
Wound care dressing on pt's weeping skin tears on his bilateral forearms and elbows Pt has a total of 10 skin tears which some skin are intact. Pt does have a thin bruised skin generalized arms. saline flushed used to cleanse the skin tears. applied optifoam dressings and covered with abdominal pads and elastic bandages. pt tolerated it fairly well.
[2021-03-21] MEDS: warfarin 2.5 mg Tablet PO (15:47)
[2021-03-21 17:36] LABS: Glucose Point of Care 179 mg/dL (70-110)
[2021-03-21] MEDS: insulin lispro 100 unit/1 mL SUBCUT ×2 (17:45→21:50)
--- NOTE | 2021-03-21 20:52 | PC.NURSE ---
in room Dr Chris came in at bedside as courtesy visit. discuss to pt and regarding wound care dressing change on lower legs will be this Saturday. and pt verbalizes understanding.
[2021-03-21 20:54] LABS: Glucose Point of Care 228 mg/dL (70-110)
--- NOTE | 2021-03-21 20:54 | PC.NURSE ---
Shift Note Pt has been cooperative, pleasant and orientedx3 this morning. this afternoon when he wakes up he is confused where he is at. He received x1 hydrocodone for pain and prior to PT activity this morning. mentioned about not giving pt dilaudid due to pt's behavior changes effect from it. 1:1 sitter at bedside due to pt trying to pull his central line Frequent safety and comfort rounds continue. Orders and/or nursing care completed as indicated. Patient monitored for response to intervention and treatment(s). Education provided includes log rolling, wound care and eating well. Patient and/or maintenance representative verbalizes understanding. Will continue to monitor.
[2021-03-22] VITALS (8 sets, daily range): BP systolic 119–159; BP diastolic 63–80; PULSE 72–78; RESP 14–18; TEMP 36.4–36.6; O2SAT 94–100
[2021-03-22] MEDS: cefTRIAXone 1,000 MG in sodium chloride 0.9% (plus) 50 ML 100 MG IV (02:12)
[2021-03-22] MEDS: morphine 4 mg/mL SDV 1 mL 1 MG IVP (02:54)
[2021-03-22 03:47] LABS: Basophils % 0.2 %; Eosinophils % 0.4 %; Hematocrit 23.5 % (42.0-52.0); Hemoglobin 8.1 g/dL (11.7-16.6); Lymphocytes # 0.8 10^3/uL (0.8-4.8); Lymphocytes % 7.1 %; Mean Corpuscular HGB Conc 34.5 g/dL (30.0-36.0); Mean Corpuscular Hemoglobin 39.9 pg (28.0-34.0); Mean Corpuscular Volume 115.8 fl (80-94); Mean Platelet Volume 12.4 fL (7.4-10.4); Monocytes # 1.1 10^3/uL (0.2-0.9); Monocytes % 9.7 %; Neutrophils # 8.86 10^3/uL (1.8-7.7); Neutrophils % 81.4 %; Nucleated Red Blood Cells # 1.4 /100WBC; Nucleated Red Blood Cells % 12.7 %; Platelet Count 104 10^3/cmm (130-400); Red Blood Count 2.03 10^6/uL (4.1-5.3); Red Cell Distribution Width 16.7 % (12.1-15.1); White Blood Count 10.9 10^3/uL (4.0-10.0)
[2021-03-22 04:15] LABS: Blood Urea Nitrogen 35 mg/dL (8-23); Calcium 7.8 mg/dL (8.5-10.5); Carbon Dioxide 24 mmol/L (22-29); Chloride 107 mmol/L (98-107); Glucose 93 mg/dL (65-115); INR 1.48 (0.8-1.2); Osmolality Calculated 294 mOsm/kg (285-295); Sodium 138 mmol/L (136-145)
[2021-03-22] MEDS: enoxaparin 40 mg/0.4 mL Syringe SUBCUT (06:02)
[2021-03-22 06:15] LABS: Slide Review Slide Review Perform
[2021-03-22 06:41] LABS: Glucose Point of Care 99 mg/dL (70-110)
--- NOTE | 2021-03-22 06:53 | PM.PN ---
Documented by User: SARITA Steward 03/22/21 06:58 Subjective Subjective: Interval history: POD 2 Pt awake with a sitter present. No apparent distress. Vitals/I&O/Wt Last Vital Signs Temp 97.9 F 03/22/21 03:24 Pulse 78 03/22/21 06:00 Resp 15 03/22/21 03:24 BP 143/80 03/22/21 03:24 Pulse Ox 98 03/22/21 03:24 03/21/21 03/21/21 03/22/21 14:59 22:59 06:59 Intake Total 428 / 428 60 / 488 110 / 598 Output Total 250 / 250 300 / 550 300 / 850 Balance 178 / 178 -240 / -62 -190 / -252 Weight last 48 hrs Weight 244 lb Physical Exam Narrative: EXAM NARRATIVE: Patient presents alert and oriented currently. good general appearance. Moderate tenderness around the incisional site with the incision appears to be healing nicely. Hemovac intact. No signs of erythema or drainage. No signs of infection. Patient denies any fevers or chills. 4/5 motor strength both lower extremities with negative straight leg raise bilaterally. Calves are supple no medial thigh tenderness. Pulses are 1+ mild edema to LE. Urinary Catheter Management^: Juarez: Cath Placed During This Visit: yes Reason for Continuing Indwelling Catheter: Acute Urinary Retention or Obstruction Urinary Catheter Date of Insertion: 03/19/21 Urinary Catheter Time of Insertion: 17:00 Data : 03/22/21 03:00 03/22/21 03:00 Micro: Microbiology 03/19/21 12:55 Urine Culture - Final Urine,Clean Catch A&P Assessment and plan (1) Acute blood loss anemia: Recommend discontinuing the Hemovac drain today. Continue with incentive spirometry for pulmonary toilet. Physical therapy to evaluate and mobilize. fast food services manager consult for placement. Status: Acute (2) Fusion of spine of thoracolumbar region: Status: Acute Coding Level of Care Code Acute Head Operator Sulfide for Dean Laird Diagnoses Acute blood loss anemia D62 Fusion of spine of thoracolumbar region M43.25 Documented by User: Gianni Bowen DO 03/22/21 08:38 Physical Exam Urinary Catheter Management^: Juarez: Cath Placed During This Visit: no Data : 03/22/21 03:00 03/22/21 03:00 A&P Assessment and plan (1) Fusion of spine of thoracolumbar region: Agree with above d/c drain Up with PT Status: Acute Attestations Medical Necessity Statement*: per primary service Coding Level of Care Code Acute Head Operator Sulfide for Chg Fwd Diagnoses Acute blood loss anemia D62 Fusion of spine of thoracolumbar region M43.25
[2021-03-22] MEDS: HYDROcodone-acetaminophen 5-325 mg Tablet PO (08:55)
[2021-03-22] MEDS: docusate sodium 100 mg Capsule PO ×2 (08:56→17:54)
[2021-03-22] MEDS: calcium carb-vit d 600mg/400unit 1 Tablet 1 EACH PO ×2 (08:56→17:54)
[2021-03-22] MEDS: pantoprazole DR 40 mg Tablet PO (08:57)
[2021-03-22] MEDS: predniSONE 10 mg Tablet PO (08:57)
[2021-03-22] MEDS: allopurinol 300 mg Tablet PO (08:58)
[2021-03-22] MEDS: metoprolol tartrate 25 mg Tablet PO ×2 (08:59→20:16)
--- NOTE | 2021-03-22 09:08 | PC.NURSE ---
pt refused gabapentin, states it makes him hear things.
--- NOTE | 2021-03-22 09:41 | PC.CHAP ---
Pastoral Care Encounter/Spiritual Assessment Type of Contact [] Declined account support associate visit [] Patient/Family/Request visit [] Outpatient visit [] Follow-up visit [] Physician referral [] Code/Alert [x] Routine visit [] Staff referral [] Actively dying [] Patient sleeping [x] Family support [] [] Out of room [] Palliative care [] [x] Receiving care in room [] Pre-surgical visit [] Trauma [] Long length of stay [] ICU visit [] Other: Relational/Emotional Strength [] Patient feels connected with others/family/visitors/staff [] Distress [] Loneliness/isolation [] Abandonment Spirituality of Patient [] Person of Emily [] Attends Confucianism of their Emily [] Believes in Prayer [] Reads Bible or Nondenominational materials [] There are Spiritual issues to be addressed Shoe Repairer Apprentice Interventions [x] Prayer [x] Active listening [x] Non-anxious presence [x] Spiritual/emotional support [] Crisis/trauma care [] Spiritual counseling [] Bereavement support [] Provided bereavement packet [] Provided Bible/devotional materials [] Provided toy/stuffed animal, coloring book to patient or family member [] Provided Communion [] Anointing/[place] [] Salvation [x] Completed spiritual assessment [] Other: Impact on Illness or Injury [] Angry [] Fearful [] Anxious [] Often cries [] Exhaustion [] Unable to work [] Unable to attend temple [] Unable to walk/stand [] Unable to read [] Unable to drive [] Unable to eat/drink [] Unable to sleep [] Unable to be with family [] Patient intubated [] Other: Summary patient trying real hard to get well. present for support Time spent with patient 5 min
[2021-03-22 11:42] LABS: Glucose Point of Care 121 mg/dL (70-110)
--- NOTE | 2021-03-22 11:50 | PC.NURSE ---
Report called to ALFONSO Melvin on med surg. Pt will be transferred shortly to room 276-1. Vital signs stable upon departure.
--- NOTE | 2021-03-22 12:16 | P.PN_ITS ---
Subjective Subjective: Interval history: Patient was seen and examined this morning, he was very pleasant and cooperative during my evaluation today Noticed drop in hemoglobin 8.1 today, only 100 mL and Hemovac, plan to remove the drain today, Juarez catheter draining concentrated urine blood pressure is stable fluid running at the bedside which I will discontinue this morning, at the bedside Patient is not endorsing any pain, he was not able to work with physical therapist yesterday is agreeable for [facility] placement INR subtherapeutic Repeat H&H today at 4 PM Vitals/I&O/Wt Last Vital Signs Temp 97.9 F 03/22/21 03:24 Pulse 76 03/22/21 09:45 Resp 14 03/22/21 09:45 BP 122/63 03/22/21 09:45 Pulse Ox 100 03/22/21 09:45 03/21/21 03/22/21 03/22/21 22:59 06:59 14:59 Intake Total 60 / 488 110 / 598 Output Total 300 / 550 300 / 850 Balance -240 / -62 -190 / -252 Weight last 48 hrs Weight 110.677 kg Physical Exam Narrative: EXAM NARRATIVE: Patient was laying comfortably in his bed No active complaints S1, S2 variable Abdomen soft Hemovac 100 mL urine No audible stridor or wheezing Patient is able to follow commands Very pleasant and cooperative during my evaluation Juarez catheter draining concentrated urine Nonfocal neuro exam Urinary Catheter Management^: Juarez: Cath Placed During This Visit: yes Reason for Continuing Indwelling Catheter: Acute Urinary Retention or Obstruction Urinary Catheter Date of Insertion: 03/19/21 Urinary Catheter Time of Insertion: 17:00 Data : 03/22/21 03:00 03/22/21 03:00 Micro: Microbiology 03/19/21 12:55 Urine Culture - Final Urine,Clean Catch A&P Assessment and plan (1) Acute blood loss anemia: Status: Acute (2) Fusion of spine of thoracolumbar region: Status: Acute (3) Hyperglycemia: Status: Acute (4) Autoimmune hepatitis: Status: Chronic (5) Gout: Status: Chronic Qualifiers: Gout site: unspecified site Gout etiology: unspecified cause Chronicity: chronic Presence of tophus: without tophus Qualified Code(s): M1A.9XX0 - Chronic gout, unspecified, without tophus (tophi) (6) History of DVT (deep vein thrombosis): Status: Chronic (7) Lower limb ulcer, ankle: Status: Chronic Qualifiers: Laterality: right Non-pressure ulcer stage: unspecified non-pressure ulcer stage Qualified Code(s): 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 (8) Chronic anticoagulation: Status: Acute (9) Atrial fibrillation: Status: Acute Qualifiers: Atrial fibrillation type: unspecified Qualified Code(s): I48.91 - Unspecified atrial fibrillation (10) Urethral stricture: Status: Chronic Qualifiers: Urethral stricture type: post-procedural Urethral stricture sex- location: male urethra-unspecified Qualified Code(s): N99.114 - Postprocedural urethral stricture, male, unspecified Additional A&P Information Postop acute blood loss anemia Patient was orthostatic positive yesterday, did receive LR at maintenance rate overnight Blood pressure stable hemodynamic remained stable overnight We will discontinue fluids today Heme VAC contains 100 mL of blood removal of Hemovac as per orthopedics Patient is subtherapeutic Dressing to be changed of right leg on Saturday Autoimmune hepatitis continue azathioprine and steroids History of DVT/PE Coumadin started yesterday I am reluctant to bridge with Lovenox because of hemoglobin which is trending down slowly Repeat H&H at 4 PM Urethral stricture Patient does self-catheterization at home, voiding trial today Atrial fibrillation without RVR Full code Cardiac diet Placement to [facility] Transfer to [facility] Attestations Medical Necessity Statement*: Awaiting placement to [facility] Time Spent in Patient Care: 16 - 35 minutes Coding Level of Care Code Acute Medical Service Representative for [facility] Fwd Diagnoses Acute blood loss anemia D62 Fusion of spine of thoracolumbar region M43.25 Hyperglycemia R73.9 Autoimmune hepatitis K75.4 Gout M1A.9XX0 Gout site: unspecified site Gout etiology: unspecified cause Chronicity: chronic Presence of tophus: without tophus History of DVT (deep vein thrombosis) Z86.718 Lower limb ulcer, ankle L97.319 Laterality: right Non-pressure ulcer stage: unspecified non-pressure ulcer stage Chronic anticoagulation Z79.01 Atrial fibrillation I48.91 Atrial fibrillation type: unspecified Urethral stricture N99.114 Urethral stricture type: post-procedural Urethral stricture sex-location: male urethra-unspecified
--- NOTE | 2021-03-22 14:28 | PC.NURSE ---
Hemovac drain removed by speech writer.
[2021-03-22] MEDS: warfarin 10 mg Tablet PO (14:30)
[2021-03-22] MEDS: gabapentin 100 mg Capsule PO ×2 (14:31→20:16)
--- NOTE | 2021-03-22 15:17 | PC.NURSE ---
narrative writer done dressing change on patient's BUE skin tears. applied steri strips, optifoam, ABD pad and alo wraps.
[2021-03-22 16:51] LABS: Hematocrit 25.4 % (42.0-52.0); Hemoglobin 8.7 g/dL (11.7-16.6)
[2021-03-22] MEDS: insulin lispro 100 unit/1 mL SUBCUT ×2 (18:00→20:59)
[2021-03-23] VITALS: BP 131/74; PULSE 79; RESP 16; TEMP 36.5; O2SAT 95
[2021-03-23] MEDS: cefTRIAXone 1,000 MG in sodium chloride 0.9% (plus) 50 ML 100 MG IV (01:11)
[2021-03-23 05:00] VITALS: BP 156/80; PULSE 72; RESP 16; TEMP 37.1; O2SAT 95
[2021-03-23] MEDS: enoxaparin 40 mg/0.4 mL Syringe SUBCUT (05:15)
--- NOTE | 2021-03-23 05:34 | PC.NURSE ---
Patient alert and completely disoriented/confused. Continues to remove BUE dressings. Voiding in urinal, VSS, no needs at this time. Sitter 1:1 throughout shift. Patient turned when compliant throughout shift.
[2021-03-23 06:09] LABS: Basophils % 0.2 %; Eosinophils # 0.2 10^3/uL (0.0-0.8); Eosinophils % 1.8 %; Hematocrit 24.6 % (42.0-52.0); Hemoglobin 8.4 g/dL (11.7-16.6); Lymphocytes # 0.8 10^3/uL (0.8-4.8); Lymphocytes % 8.4 %; Mean Corpuscular HGB Conc 34.1 g/dL (30.0-36.0); Mean Corpuscular Hemoglobin 39.4 pg (28.0-34.0); Mean Corpuscular Volume 115.5 fl (80-94); Mean Platelet Volume 12.2 fL (7.4-10.4); Neutrophils # 7.47 10^3/uL (1.8-7.7); Neutrophils % 78.3 %; Nucleated Red Blood Cells # 2.4 /100WBC; Nucleated Red Blood Cells % 24.8 %; Platelet Count 115 10^3/cmm (130-400); Red Blood Count 2.13 10^6/uL (4.1-5.3); Red Cell Distribution Width 17.3 % (12.1-15.1); White Blood Count 9.5 10^3/uL (4.0-10.0)
[2021-03-23 06:21] LABS: INR 1.92 (0.8-1.2)
[2021-03-23 06:39] LABS: Blood Urea Nitrogen 34 mg/dL (8-23); Calcium 7.9 mg/dL (8.5-10.5); Carbon Dioxide 25 mmol/L (22-29); Chloride 107 mmol/L (98-107); Glucose 91 mg/dL (65-115); Osmolality Calculated 295 mOsm/kg (285-295); Sodium 139 mmol/L (136-145)
--- NOTE | 2021-03-23 07:14 | PM.PN ---
Subjective Subjective: Interval history: POD 3 Patient is alert in no apparent distress. Mobilize with physical therapy yesterday. Has no complaints today. Vitals/I&O/Wt Last Vital Signs Temp 98.8 F 03/23/21 05:00 Pulse 72 03/23/21 05:00 Resp 16 03/23/21 05:00 BP 156/80 03/23/21 05:00 Pulse Ox 95 03/23/21 05:00 03/22/21 03/23/21 03/23/21 22:59 06:59 14:59 Intake Total 240 / 954 50 / 1004 Output Total 200 / 450 Balance 240 / 704 -150 / 554 Weight last 48 hrs Weight 244 lb Physical Exam Narrative: EXAM NARRATIVE: Alert and oriented x3 has good general appearance normal normal affect. Incision appears to have some clear bloody discharge. No obvious infection evident. He is firing all motor groups with good strength. 1+ edema in both lower extremities. Calves are supple no medial thigh tenderness. Urinary Catheter Management^: Ujarez: Cath Placed During This Visit: yes, but has since been removed by the nurse Reason for Continuing Indwelling Catheter: Decision to DC Catheter Urinary Catheter Date of Insertion: 03/19/21 Urinary Catheter Time of Insertion: 17:00 Date Urinary Catheter Removed: 03/22/21 Time Urinary Catheter Discontinued: 15:23 Data : 03/22/21 16:18 03/23/21 05:02 A&P Assessment and plan (1) Acute blood loss anemia: Status: Acute (2) Fusion of spine of thoracolumbar region: Continue mobilizing with physical therapy. Continue incentive spirometry. Dressing changes today with [place] island dressing applied. Continue to work with director social for placement. We will see him back in the office in 1 week's time okay from orthopedic standpoint for discharge when medically stable and placement found. Status: Acute Attestations Medical Necessity Statement*: defer to medical team Coding Level of Care Code Acute Forming Roll Operator for Dean Laird Diagnoses Acute blood loss anemia D62 Fusion of spine of thoracolumbar region M43.25
[2021-03-23 07:25] LABS: Slide Review Slide Review Perform
[2021-03-23 08:00] VITALS: BP 118/58; PULSE 68; RESP 16; TEMP 36.9; O2SAT 97
[2021-03-23] MEDS: docusate sodium 100 mg Capsule PO (08:24)
[2021-03-23] MEDS: calcium carb-vit d 600mg/400unit 1 Tablet 1 EACH PO (08:24)
[2021-03-23] MEDS: HYDROcodone-acetaminophen 5-325 mg Tablet PO (08:24)
[2021-03-23] MEDS: pantoprazole DR 40 mg Tablet PO (08:24)
[2021-03-23] MEDS: metoprolol tartrate 25 mg Tablet PO (08:25)
[2021-03-23] MEDS: predniSONE 10 mg Tablet PO (08:25)
[2021-03-23] MEDS: allopurinol 300 mg Tablet PO (08:25)
[2021-03-23 10:36] LABS: Glucose Point of Care 174 mg/dL (70-110)
[2021-03-23 10:36] LABS: Glucose Point of Care 193 mg/dL (70-110)
[2021-03-23 10:37] LABS: Glucose Point of Care 112 mg/dL (70-110)
[2021-03-23 10:37] LABS: Glucose Point of Care 114 mg/dL (70-110)
--- NOTE | 2021-03-23 10:51 | PC.CHAP ---
Pastoral Care Encounter/Spiritual Assessment Type of Contact [] Declined cdl service technician visit [] Patient/Family/Request visit [] Outpatient visit [] Follow-up visit [] Physician referral [] Code/Alert [] Routine visit [] Staff referral [] Actively dying [] Patient sleeping [] Family support [] [] Out of room [] Palliative care [] [] Receiving care in room [] Pre-surgical visit [] Trauma [] Long length of stay [] ICU visit [x] Other: with family is taking care os his health unable to coommunicat + Relational/Emotional Strength [] Patient feels connected with others/family/visitors/staff [] Distress [] Loneliness/isolation [] Abandonment Spirituality of Patient [] Person of Emily [] Attends Mu-Ism of their Emily [] Believes in Prayer [] Reads Bible or Denominational materials [] There are Spiritual issues to be addressed City Marshal Interventions [] Prayer [] Active listening [] Non-anxious presence [] Spiritual/emotional support [] Crisis/trauma care [] Spiritual counseling [] Bereavement support [] Provided bereavement packet [] Provided Bible/devotional materials [] Provided toy/stuffed animal, coloring book to patient or family member [] Provided Communion [] Anointing/[place] [] Salvation [] Completed spiritual assessment [] Other: Impact on Illness or Injury [] Angry [] Fearful [] Anxious [] Often cries [] Exhaustion [] Unable to work [] Unable to attend pentecostal [] Unable to walk/stand [] Unable to read [] Unable to drive [] Unable to eat/drink [] Unable to sleep [] Unable to be with family [] Patient intubated [] Other: Summary with family is taking care os his health unable to coommunicat + Time spent with patient 5 mins
[2021-03-23 11:09] LABS: SARS Covid-2 Antigen Negative (Negative)
[2021-03-23 11:22] LABS: Vit D 1,25 (Oh)2, Total 27 pg/mL (18-72); Vit D2 1,25 (Oh)2 <8 pg/mL; Vit D3 1,25 (Oh)2 27 pg/mL
--- NOTE | 2021-03-23 11:23 | P.DS_ITS ---
Discharge Providers Date of Admission: 03/18/21 22:15 Date of Discharge: March 23, 2021 Attending Provider at Admission: Alaina Montana MD Attending Provider at Discharge: Eliane Carrizales MD Primary Care Provider: Kamran Abdi MD Diagnoses at Discharge Discharge Diagnosis (1) Acute blood loss anemia: Status: Acute (2) Fusion of spine of thoracolumbar region: Status: Acute Reason for Visit Reason for Visit: LOW BACK PAIN S/P FALL Hospital Course Hospital Course History of Present Illness History of Present Illness by Dr Rubén Escamilla Nissa Rome is a 85 year old male who presented to the emergency room with chief complaint of back pain and headache after a fall. He was carrying a bucket from the tailgate of his truck into the house. He turned around and tripped over something and fell backwards. He landed on his back and head primarily and his left arm. His was with him and saw what happened. There was no loss of consciousness. He got dizzy from the severity of the pain and had an episode of nausea with vomiting once. He continued to be nauseated after arrival. He does think he had some urinary incontinence as well after the fall because of how long he was unable to get up. The dizziness has since resolved. He denies any preceding symptoms of dizziness, chest pain, vision changes, numbness or paresthesias. He indicates it was simply an accidental fall. He was unable to get up after he fell due to pain in his back. A neighbor was eventually able to help get him up and he came in for further evaluation due to continued pain. Pain was severe. Located in the middle of his back. Worse with any attempts at movement. No shooting pains down the legs. No new numbness or paresthesias in the arms or legs. He has general discomfort everywhere at the present time. He has not had frequent falls otherwise. Work- up in the emergency room revealed a transverse fracture at T11 that was unstable. Patient is being admitted to Dr. Bowen and hospitalist consultation was requested for medical issues. While in the ER he was found to have atrial fibrillation with rapid ventricular response. He has been treated with diltiazem thus far. There is no known history of atrial fibrillation that I can discern from talking with Mr. Rome. He has had some pain medicine so he is having a little bit of difficulty focusing and answering questions. He is chronically on blood thinners because of a history of a blood clot in his legs. He has a history of colon cancer that was treated with partial resection. Denies any recurrence of this. He has been on prednisone for several years due to a history of autoimmune hepatitis. He is also on azathioprine. He has not had other fractures since then. INR in the emergency room was 1.25. History is currently limited but is obtained from talking with him and reviewing available records. Hosp Course:- Patient was admitted for management of thoracic vertebral fracture. He went for T8-L1 posterior spine fusion on 03/20. Estimated blood loss 200 mL, he did experience postoperative blood loss anemia however did not require any blood transfusion. He takes Coumadin which was held before surgery. After surgery his Coumadin was started at 10 mg at the time of discharge his INR is 1.9. He is able to work to some extent with physical therapist. He got accepted at [facility]. He was seen by wound care as well who recommended change of dressing on Saturday, as per the there is a venous stasis dermatitis and ulcer on right leg that is why he is requiring compression wraps. During hospitalization we continued his medications for autoimmune hepatitis and gout. Patient did experience multiple episodes of confusion especially after getting opioids and benzodiazepines. He became very combative when he was given benzodiazepine for his MRI. As per the at the time of discharge he seems back to his baseline. At home he was independent, able to take care of his home medications, carry his daily activities on his own. Hemovac drain was removed by the orthopedics. Hemoglobin stable around 8.4, he remained hemodynamically stable after surgery. Of note, patient has history of stricture does require intermittent self-catheterization at home, during hospitalization Juarez catheter was placed because of his back surgery, Juarez catheter can be removed. 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 He will not receive any antibiotics at the time of discharge. Patient and decided against opioids because of side effects and confusion. He will be getting Tylenol for his back pain. Bowel regimen prescribed as well. For atrial fibrillation AV teri blocking agent prescribed. His heart rate remained within normal range. Physical Exam Narrative: EXAM NARRATIVE: Patient was laying comfortably in his bed No active complaints S1, S2 variable Abdomen soft Hemovac removed No audible stridor or wheezing Patient is able to follow commands Very pleasant and cooperative during my evaluation Juarez catheter removed Nonfocal neuro exam Urinary Catheter Management^: Juarez: Cath Placed During This Visit: yes, but has since been removed by the nurse Reason for Continuing Indwelling Catheter: Decision to DC Catheter Urinary Catheter Date of Insertion: 03/19/21 Urinary Catheter Time of Insertion: 17:00 Date Urinary Catheter Removed: 03/22/21 Time Urinary Catheter Discontinued: 15:23 Discharge Data Data Completed and Pending: Completed Studies During Hospitalization Category Date Time Status CT cervical spin wo con* [id number] Urge nt Cat Scan 03/18/21 17:[address] chest abd pel w con* Urgent Cat Scan 03/18/21 17:[address] head wo con* 7 [id number] Urgent Cat Scan 03/18/21 17:43 Completed XR thoracic spine 2V [id number] Routine Exams 03/20/21 [place] [id number] Routin e Ultrasound 03/19/21 00:42 Completed CV. echo complete * [id number] Routine Ultrasound 03/20/21 06:00 Completed Pending at discharge Category Date Time Status Prothrombin Time INR AM LABS Lab 03/24/21 04:00 Ordered Labs from last 24 hours 03/23/21 03/23/21 03/23/21 10:25 08:14 06:38 WBC RBC Hgb Hct MCV MCH MCHC RDW Plt Count MPV Neut % (Auto) Lymph % (Auto) [place] % (Auto) Eos % (Auto) Baso % (Auto) Neut # (Auto) Lymph # (Auto) [place] # (Auto) Eos # (Auto) Baso # (Auto) Nucleated RBC % (a uto) Nucleated RBCs # PT INR Sodium Potassium Chloride Carbon Dioxide Anion Gap BUN Creatinine GFR Calculation Glucose POC Glucose 114 H 112 H Calculated Osmolal ity Calcium 25-OH Vitamin D To vishal 1,25 Dihydroxy Vit D2 1,25 Dihydroxy Vit D3 SARS-CoV-2 Ag (Rap id) Negative 03/23/21 03/23/21 03/23/21 05:02 05:02 05:02 WBC 9.5 RBC 2.13 L Hgb 8.4 L Hct 24.6 L MCV 115.5 H MCH 39.4 H MCHC 34.1 RDW 17.3 H Plt Count 115 L MPV 12.2 H Neut % (Auto) 78.3 Lymph % (Auto) 8.4 [place]odd[place] % (Auto) 10.0 Eos % (Auto) 1.8 Baso % (Auto) 0.2 Neut # (Auto) 7.47 Lymph # (Auto) 0.8 [place]odd[place] # (Auto) 1.0 H Eos # (Auto) 0.2 Baso # (Auto) 0.0 Nucleated RBC % (a uto) 24.8 Nucleated RBCs # 2.4 PT 22.40 H INR 1.92 H Sodium 139 Potassium 4.0 Chloride 107 Carbon Dioxide 25 Anion Gap 11.0 BUN 34 H Creatinine 0.6 L GFR Calculation Not Reportable Glucose 91 POC Glucose Calculated Osmolal ity 295 Calcium 7.9 L 25-OH Vitamin D To vishal 1,25 Dihydroxy Vit D2 1,25 Dihydroxy Vit D3 SARS-CoV-2 Ag (Rap id) 03/22/21 03/22/21 03/22/21 20:44 17:48 16:18 WBC RBC Hgb 8.7 L Hct 25.4 L MCV MCH MCHC RDW Plt Count MPV Neut % (Auto) Lymph % (Auto) [place] % (Auto) Eos % (Auto) Baso % (Auto) Neut # (Auto) Lymph # (Auto) [place] # (Auto) Eos # (Auto) Baso # (Auto) Nucleated RBC % (a uto) Nucleated RBCs # PT INR Sodium Potassium Chloride Carbon Dioxide Anion Gap BUN Creatinine GFR Calculation Glucose POC Glucose 193 H 174 H Calculated Osmolal ity Calcium 25-OH Vitamin D To vishal 1,25 Dihydroxy Vit D2 1,25 Dihydroxy Vit D3 SARS-CoV-2 Ag (Rap id) 03/22/21 03/19/21 11:07 03:42 WBC RBC Hgb Hct MCV MCH MCHC RDW Plt Count MPV Neut % (Auto) Lymph % (Auto) [place] % (Auto) Eos % (Auto) Baso % (Auto) Neut # (Auto) Lymph # (Auto) [place] # (Auto) Eos # (Auto) Baso # (Auto) Nucleated RBC % (a uto) Nucleated RBCs # PT INR Sodium Potassium Chloride Carbon Dioxide Anion Gap BUN Creatinine GFR Calculation Glucose POC Glucose 121 H Calculated Osmolal ity Calcium 25-OH Vitamin D To vishal 27 1,25 Dihydroxy Vit D2 <8 1,25 Dihydroxy Vit D3 27 SARS-CoV-2 Ag (Rap id) Vitals: Last Vital Signs Temp 98.4 F 03/23/21 08:00 Pulse 68 03/23/21 08:00 Resp 16 03/23/21 08:00 BP 118/58 03/23/21 08:00 Pulse Ox 97 03/23/21 08:00 Discharge Plan Discharge Patient Disposition: Xfer SNF Condition: Stable Prescriptions: New Aphen 325 mg tablet 325 mg PO Q6H PRN (Reason: fever or pain) Qty: 30 RF: 0 Senna Plus 8.6-50 mg capsule 1 tab-cap PO DAILY Qty: 20 RF: 0 metoprolol tartrate 25 mg tablet 12.5 mg PO BID Qty: 60 RF: 0 Continued diphenoxylate-atropine [Lomotil] 2.5-0.025 mg tablet 1 tab PO Q6H PRN (Reason: Diarrhea) RF: 0 ascorbate calcium (vitamin C) 500 mg tablet 1,000 mg PO BID RF: 0 warfarin 5 mg tablet See Rx Instructions PO DAILY RF: 0 allopurinol 300 mg tablet 300 mg PO DAILY RF: 0 famotidine 20 mg tablet 20 mg PO BID RF: 0 azathioprine 50 mg tablet 50 mg PO DAILY RF: 0 gabapentin 100 mg capsule 100 mg PO TID RF: 0 methenamine hippurate 1 gram tablet 1 g PO BID Qty: 60 RF: 12 prednisone 10 mg Tablet 10 mg PO DAILY RF: 0 alprazolam 0.25 mg tablet 0.25 mg PO DAILY PRN (Reason: anxiety) RF: 0 Discharge Orders: Discharge Order (Routine); Ordered 03/23/21 Ordered By: Eliane Carrizales Other Ambulatory Orders: Prothrombin Time INR (Routine) Timeframe: 2 Days Facility: [facility] - Location: Lab - Main Lab Ordered By: Eliane Carrizales Referrals: [facility] [Outside] Gianni Bowen DO [Physician] - 04/04/21 8:15 am Kamran Abdi MD [Primary Care Provider] - Discharge Diet: Cardiac Discharge Activity: Increase activity as tolerated Patient Instructions: Senna (By mouth), Opioid Safety Activity Restrictions/Additional Instructions: [facility] The following is a list of instructions, from your provider, to follow upon your dis charge to ensure you have the optimal recovery from your recent injury orsurgery. Follow-up care is a daigle part of your treatment and safety. Be sure to make and go to all appointments, and call your doctor if you are having problems. If you do not already have a follow-up appointment made, call Dr. Bowen office in the next 1-3 days to make follow up appointment for 1 weeks at [phone]. It is also a good idea to know your test results and keep a list of the medicines you take. Medications will be prescribed for you at your provider's discretion. These medications are to be used as instructed; if they are taken more often that prescribed they will not be refilled early and in most cases will not be refilled at all. > When a refill is needed,you should contact oral meng 2-3 business days before your prescription runs out. Medications will NOT be refilled by air traffic control supervisor providers after hours! > Many pain medications contain Tylenol (Acetaminophen). Do not consume more than 4,000 mg of Tylenol per day in total with any combination ofmedications. > Pain medications can cause constipation. Please use an over the counter stool softener as directed, while taking pain medications. Consulty our local pharmacist with questions or recommendations on stool softeners. If constipation persists, contact our office or your primary care provider. > While under our care,you are not to receive pain medications or other controlled substances from any other provider unless our office is notified and approves. Any attempts to do so will result in refusal to prescribe any further pain medications and possible dismissal from our practice. ? change dressing on back on 03/28/21 in clinic ? Walking is essential for the healing process after surgery. We would like you to slowly advance your walking. This should be done on relatively flat clear ground (inside or out) or can be done on a treadmill. Remember this goal does not have to happen all at once, slowly increase your distance and duration. This can be broken into more more than one walk per day as tolerated. Patients who walk as directed after surgery rarely require Physical Therapy. In the unlikely event this issue arises your provider will direct hospital staff to make the appropriate arrangements. ? No lifting over 5 pounds {a gallon of milk) or bending/twisting until further notice. Each of these activities places an unnecessary amount of stress onto the body and can impede the delicate healing process. > Instead of bending at the waist, keep your back straight and bend at the knees. > Instead of twisting your torso, keep your back straight and turn your entire body with your feet. ? You may sleep in any position which makes you comfortable. Many patients find comfort sleeping in a reclining chair. It is not abnormal to have difficulty sleeping for the first several weeks following your surgery. We recommend trying Benadry! or Tylenol PM as directed to help with your sleeping difficulties. Both medications are over the counter and available withoutprescription. ? NO SMOKING!!! Smoking dramatically increases the probability of developing postoperative wound infections. ? Common complaints after lumbar and/or thoracic spine surgery include, but are not limited to: numbness and/or tingling in the legs, pain around the incision and surrounding tissues, muscle spasms, or stiffness of the middle to low back. Contact our office if these symptoms persist or if an acute change occurs. ? No driving for the first 3-5days, and not while taking narcotics [] until seen at your follow-up appointment and cleared. There are no restrictions for riding on short trips, however if you take a longer trip, arrangements should be made to make regular stops to get out of the vehicle and stretch . ? Swelling is an unfortunate event that will take place with any surgery and is the primary source of your postoperative discomfort. While walking and regular approved activities helps control inflammation, there are additional steps you can take to minimizeswelling. > Place ice over the surgical site and surrounding tissue for twenty minutes, followed by applying a low/medium heat (heating pad) for an additional twenty minutes every 1-2 hours as needed for painrelief. > You may use of over the counter anti-inflammatory medications (Ibuprofen, Motrin, Aleve, Advil, etc) as directed on the package label. These types of medicines wm significantly reduce the amount of discomfort you experience after surgery from swelling. It should be noted that if you have and allergy to any of these medications, or a history of ulcers or kidney disease you should consult you primary care provider prior to starting these medications. Discharge Attestations Time Spent in Discharge Care*: less than 30 min Quality Metrics Clinical Quality Measures During this hospital stay, did patient experience: None Coding Level of Care Code Acute Chg FW DC note Diagnoses Acute blood loss anemia D62 Fusion of spine of thoracolumbar region M43.25
[2021-03-23 11:26] LABS: Glucose Point of Care 189 mg/dL (70-110)
[2021-03-23] MEDS: insulin lispro 100 unit/1 mL SUBCUT (11:56)
[2021-03-23 12:00] VITALS: BP 133/72; PULSE 67; RESP 16; TEMP 36.8; O2SAT 96
--- NOTE | 2021-03-23 13:46 | PC.SOCIAL ---
IMM Update: pg 2 of IMM updated and reviewed w/ patient. Copy provided.
--- NOTE | 2021-03-23 15:16 | PC.OT ---
OT treatment not attempted due to scheduled patient discharge this date.
[2021-03-23 16:52] VITALS: BP 133/72; PULSE 67; RESP 16; TEMP 36.8; O2SAT 96
== END 2021-03-23 16:00 | disposition skilled nursing facility (03) | DRG 460 ==
LOC: ER 22:21 → CSU 22:59 → MEDSURG 03-22 12:18
PROVIDERS: Internal Medicine; Nurse Practitioner Family; Orthopaedic Surgery; Student in an Organized Health Care Education/Training Program; Admitting Provider Hospitalist; Emergency Provider Emergency Medicine; PCP Family Medicine; Visit Provider Internal Medicine
PROC: 0RG70K1 Fusion of 2 to 7 Thoracic Vertebral Joints with Nonautologous Tissue Substitute, Posterior Approach, Posterior Column, Open Approach (ICD-10-PCS; CPT 22612; principal; 2021-03-20 12:30)
DX: S22.082A Unstable burst fracture of T11-T12 vertebra, initial encounter for closed fracture (principal); N39.0 Urinary tract infection, site not specified; L97.319 Non-pressure chronic ulcer of right ankle with unspecified severity; D62 Acute posthemorrhagic anemia; I82.532 Chronic embolism and thrombosis of left popliteal vein; W01.0XXA Fall on same level from slipping, tripping and stumbling without subsequent striking against object, initial encounter; K75.4 Autoimmune hepatitis; Z85.038 Personal history of other malignant neoplasm of large intestine; I10 Essential (primary) hypertension; Z87.440 Personal history of urinary (tract) infections; Z96.651 Presence of right artificial knee joint; I48.91 Unspecified atrial fibrillation; Z79.52 Long term (current) use of systemic steroids; Z79.899 Other long term (current) drug therapy; R73.9 Hyperglycemia, unspecified; Z79.51 Long term (current) use of inhaled steroids; Z79.01 Long term (current) use of anticoagulants; Z98.1 Arthrodesis status; N35.919 Unspecified urethral stricture, male, unspecified site; M1A.9XX0 Chronic gout, unspecified, without tophus (tophi)
CPT/HCPCS: 29581; 36415; 36416; 51702; 70450; 71260; 72070; 72125; 74177; 76000; 80048; 80053; 81001; 82652; 82962; 83605; 83735; 84100; 84443; 84484; 84550; 85014; 85018; 85025; 85610; 85730; 86850; 86900; 87086; 87426; 90471; 90715; 93005; 93306; 93970; 96365; 96372; 96375; 97110; 97116; 97162; 97165; 97530; 99291; C1713; J0330; J0690; J0696; J1100; J1170; J1630; J1650; J1815; J2060; J2270; J2360; J2405; J2704; J3010; J3370; J3490; J7030; J7040; J7500; J7512; Q9967

== ENCOUNTER 2021-03-24 18:01 | Inpatient (IN) | payer MEDICARE, OTHER, SELFPAY ==
[2021-03-24 18:11] VITALS: BP 173/96; PULSE 82; RESP 16; TEMP 36.9; O2SAT 97; BMI 30.3
[2021-03-24 18:24] VITALS: BP 173/96; PULSE 81; O2SAT 97
--- NOTE | 2021-03-24 18:35 | XRR_ITS ---
PROCEDURE INFORMATION: Exam: XR Chest Exam date and time: 03/24/2021 6:35 PM Age: 85 years old Clinical indication: Pain; Chest pressure; Additional info: Chest pain TECHNIQUE: Imaging protocol: XR of the chest. Views: 1 view. Total images: 1 COMPARISON: CT chest abd pel w con* 03/18/2021 8:00 PM FINDINGS: Lungs: No acute focal pulmonary opacities are detected. Pleural spaces: Unremarkable. No pleural effusion. No pneumothorax. Heart/Mediastinum: Heart is enlarged but stable when compared to the prior exam. Bones/joints: Partially visualized spinal fusion hardware noted. Diffuse osteopenia noted. XR/XR chest 1V portable [id number] IMPRESSION: 1. Heart is enlarged but stable when compared to the prior exam. 2. No acute focal pulmonary opacities are detected. Radiation Dose CTDIVOL = (mGy): DLP = (mGy-cm)
--- NOTE | 2021-03-24 18:35 | ECG_ITS ---
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: : 1935 Requested By: Jhonny Menjivar Order Number: [id number] Reading MD: MAYITO ADAMS Measurements Intervals [place] Rate: 82 P: 21 VT: 138 QRS: -15 QRSD: 97 T: 26 QT: 366 QTc: 429 Interpretive Statements SINUS RHYTHM INCOMPLETE RIGHT BUNDLE BRANCH BLOCK [90+ ms QRS DURATION, TERMINAL R IN V1/V2, 40+ ms S IN I/aVL/V4/V5/V6] VOLTAGE CRITERIA FOR LVH [MEETS CRITERIA IN ONE OF: R(aVL), S(V1), R(V5), R(V5/V6)+S(V1)] Compared to ECG 03/19/2021 03:35:45 Incomplete right bundle-branch block now present Atrial fibrillation no longer present T-wave abnormality no longer present Electronically Signed On 03-24-2021 23:56:44 CDT by MAYITO ADAMS [id number] f
[2021-03-24 19:14] VITALS: BP 121/70; PULSE 77; RESP 18; O2SAT 94
--- NOTE | 2021-03-24 19:35 | CTR_ITS ---
PROCEDURE INFORMATION: Exam: CTA Chest With Contrast Exam date and time: 03/24/2021 7:35 PM Age: 85 years old Clinical indication: Sternal or substernal pain; Prior surgery; Surgery type: Back surg, neck; Patient HX: HX of colon CA; Additional info: Chest pain and back surgery TECHNIQUE: Imaging protocol: Computed tomographic angiography of the chest with contrast. 3D rendering (Not supervised by radiologist): MIP and/or 3D reconstructed images were created by the technologist. Radiation optimization: All CT scans at this facility use at least one of these dose optimization techniques: automated exposure control; mA and/or kV adjustment per patient size (includes targeted exams where dose is matched to clinical indication); or iterative reconstruction. Contrast material: VISI 320; Contrast volume: 60 ml; Contrast route: INTRAVENOUS (IV); COMPARISON: CT chest abd pel w con* 03/18/2021 8:00 PM RADIATION DOSE METRICS: Total DLP (mGy-cm): 561.2 FINDINGS: Pulmonary arteries: There is no pulmonary embolus. Aorta: Unremarkable. No aortic aneurysm. No aortic dissection. Lungs: Nonspecific bibasilar consolidation is present, consistent with atelectasis, edema, or pneumonia. There is also mild dependent atelectasis. Diffuse mild interstitial and ground-glass opacity is also noted in the lungs best seen in the upper lobes compatible with mild interstitial edema. Pleural spaces: There are small bilateral pleural effusions. Heart: The heart is enlarged. Coronary artery calcifications are noted. Lymph nodes: Unremarkable. No enlarged lymph nodes. Liver: The liver has a grossly nodular contour and there is relative hypertrophy of the caudate lobe, consistent with end-stage cirrhosis. Gallbladder and bile ducts: There has been a cholecystectomy. 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 Kidneys and ureters: There is bilateral nephrolithiasis versus renal vascular calcifications. There is no evidence of hydronephrosis. Intraperitoneal space: There is a small volume of ascites. Bones/joints: Unchanged hyperextension/distraction fracture of T11 with disruption of the anterior longitudinal ligament and pedicle fractures is again identified. There is no acute bony abnormality. Extensive postoperative changes in the thoracolumbar spine are noted. Soft tissues: Unremarkable. CT/CT angio chest PE protcl [id number] IMPRESSION: 1. There is no pulmonary embolus. 2. Nonspecific bibasilar consolidation is present, consistent with atelectasis, edema, or pneumonia. 3. Diffuse mild interstitial and ground-glass opacity is also noted in the lungs best seen in the upper lobes compatible with mild interstitial edema. 4. Unchanged hyperextension transverse fracture of T11 with postoperative changes. Radiation Dose CTDIVOL = (mGy): DLP = 561.2 (mGy-cm)
[2021-03-24 20:32] LABS: Basophils % 0.4 %; Eosinophils # 0.2 10^3/uL (0.0-0.8); Eosinophils % 2.5 %; Hematocrit 25.3 % (42.0-52.0); Hemoglobin 9.4 g/dL (11.7-16.6); Lymphocytes # 0.6 10^3/uL (0.8-4.8); Mean Corpuscular HGB Conc 37.2 g/dL (30.0-36.0); Mean Corpuscular Hemoglobin 41.2 pg (28.0-34.0); Monocytes # 0.7 10^3/uL (0.2-0.9); Monocytes % 9.2 %; Neutrophils # 5.96 10^3/uL (1.8-7.7); Neutrophils % 78.2 %; Nucleated Red Blood Cells # 1.6 /100WBC; Nucleated Red Blood Cells % 20.7 %; Platelet Count 150 10^3/cmm (130-400); Red Blood Count 2.28 10^6/uL (4.1-5.3); Red Cell Distribution Width 17.1 % (12.1-15.1); White Blood Count 7.6 10^3/uL (4.0-10.0)
[2021-03-24 20:35] LABS: Troponin(5th) Baseline 57 ng/L (0-15)
--- NOTE | 2021-03-24 20:35 | ECG_ITS ---
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1935 Requested By: Jhonny Menjivar Order Number: [id number] Reading MD: MAYITO ADAMS Measurements Intervals [place] Rate: 81 P: IN: QRS: -15 QRSD: 101 T: 8 QT: 378 QTc: 440 Interpretive Statements ATRIAL FIBRILLATION INCOMPLETE RIGHT BUNDLE BRANCH BLOCK [90+ ms QRS DURATION, TERMINAL R IN V1/V2, 40+ ms S IN I/aVL/V4/V5/V6] VOLTAGE CRITERIA FOR LVH [MEETS CRITERIA IN ONE OF: R(aVL), S(V1), R(V5), R(V5/V6)+S(V1)] POSSIBLE ANTERIOR MYOCARDIAL INFARCTION , PROBABLY OLD [30 ms Q WAVE IN V3/V4, OR R < 0.2 mV IN V4] Compared to ECG 03/24/2021 18:13:40 Myocardial infarct finding now present Sinus rhythm no longer present Electronically Signed On 03-25-2021 0:02:07 CDT by MAYITO ADAMS [id number]
[2021-03-24 20:56] LABS: Slide Review Slide Review Perform
--- NOTE | 2021-03-24 20:57 | W.ED.GENADLT ---
HPI - General Adult General: Chief complaint: Chest Pain Stated complaint: CHEST PAIN Time Seen by Provider: 03/24/21 18:32 History of Present Illness: HPI narrative: Patient is an 85-year-old male history of afib, autoimmune hepatitis, recent thoracic fusion presenting to the emergency room with complaints of left-sided chest pain which started 2 hours ago. Patient states that chest pain is sharp and achy. Patient has no stated nausea/vomiting, diaphoresis, shortness of breath. Patient states that he still recovering from prior back surgery. Denies any fever chills, increased drainage from the back surgery site. Patient has no other focal complaints at this time including headache, vision change, focal weakness, abdominal pain, nausea/vomiting, diarrhea, melena/hematochezia, or complaints. Patient had recent back surgery on 03/20, patient has had significant pain and some not controlled. Patient has any drainage, fever/chills, weakness in the arms or legs. Onset: 2 hrs ago Duration:2 hrs Location:home Severity:moderate Review of Systems Narrative: Constitutional: No fever, no chills. HEENT: No vision changes CV: +chest pain, no palpitations PULM: no cough, no dyspnea. GI: No abdominal pain, no N/V/D. : No dysuria MSKEL: No muscle pain SKIN: No new rashes, no lesions. NEURO: No headache, no focal weakness. 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 Gout History of DVT (deep vein thrombosis) recurrent History of stress test Hyperglycemia Hypertension Lower limb ulcer, ankle Recurrent UTI Thoracic spine fracture Urethral stricture Surgical History (Updated 03/19/21 @ 00:01 by Alania Montana MD) H/O neck surgery H/O partial resection of colon due to cancer H/O total knee replacement right H/O transurethral resection of prostate History of bladder surgery History of cataract surgery History of cholecystectomy History of skin graft Family History Father , at age 65 Cancer lung Mother , at age 88 Alzheimer's dementia Social History (Updated 03/19/21 @ 00:57 by Alaina Montana MD) Smoking and tobacco status: never smoked Alcohol intake: never Marital status: Current occupational status: retired Physical Exam Narrative: EXAM NARRATIVE: Head: Atraumatic Eyes: PERRL, conjunctiva without injection ENT: Mucous membrane moist NECK: Supple, ROM intact LUNGS: LCTAB, no crackles/rhonchi CV: RRR ABDOMEN: Soft, nontender in all quadrants EXTREMITY: Normal ROM SKIN: No rash or erythema NEURO: Awake and alert, no focal motor deficits PSYCH: Normal mood and affect Course Vital Signs: Vital signs: Vital Signs Temperature 98.4 F 03/24/21 18:11 Pulse Rate 77 03/24/21 19:14 Respiratory Rate 18 03/24/21 19:14 Blood Pressure 121/70 03/24/21 19:14 Pulse Oximetry 94 03/24/21 19:14 MDM - General Adult MDM Narrative: Medical decision making narrative: 85-year-old male with history of recent thoracic lumbar surgery, afib, HTN presenting with chest pain and intractable back pain Recent surgery incision site dry/clean/intact EKG showing NSR. Normal axis. RBB No ST elevations/depressions to suggest coronary occlusion. Normal NE, QRS, QT intervals. Troponin of 50, continues to have back pain. XR showed enlarged cardiac silhouette new compared to prior admission 1 day ago. Will admit forchest pain workup Lab Data: Labs: Lab Results 03/24/21 03/24/21 03/24/21 20:10 20:10 20:10 WBC 7.6 10^3/uL 10^3/ uL (4.0-10.0) RBC 2.28 10^6/uL L 10 ^6/uL (4.1-5.3) Hgb 9.4 g/dL L g/dL (11.7-16.6) Hct 25.3 % L % (42.0-52.0) MCV 111.0 fl H fl (80-94) MCH 41.2 pg H pg (28.0-34.0) MCHC 37.2 g/dL H g/dL (30.0-36.0) RDW 17.1 % H % (12.1-15.1) Plt Count 150 10^3/cmm 10^3 /cmm (130-400) MPV 12.0 fL H fL (7.4-10.4) Neut % (Auto) 78.2 % % Lymph % (Auto) 8.0 % % [place] % (Auto) 9.2 % % Eos % (Auto) 2.5 % % Baso % (Auto) 0.4 % % Neut # (Auto) 5.96 10^3/uL 10^3 /uL (1.8-7.7) Lymph # (Auto) 0.6 10^3/uL L 10^ 3/uL (0.8-4.8) [place] # (Auto) 0.7 10^3/uL 10^3/ uL (0.2-0.9) Eos # (Auto) 0.2 10^3/uL 10^3/ uL (0.0-0.8) Baso # (Auto) 0.0 10^3/uL 10^3/ uL (0.0-0.1) Nucleated RBC % (a uto) 20.7 % % Nucleated RBCs # 1.6 /100WBC /100W BC Sodium Cancelled Potassium Cancelled Chloride Cancelled Carbon Dioxide Cancelled Anion Gap Cancelled BUN Cancelled Creatinine Cancelled GFR Calculation Cancelled Glucose Cancelled Calculated Osmolal ity Cancelled Calcium Cancelled Troponin T Baselin e 57 ng/L H ng/L (0-15) 03/24/21 21:00 WBC RBC Hgb Hct MCV MCH MCHC RDW Plt Count MPV Neut % (Auto) Lymph % (Auto) [place] % (Auto) Eos % (Auto) Baso % (Auto) Neut # (Auto) Lymph # (Auto) [place] # (Auto) Eos # (Auto) Baso # (Auto) Nucleated RBC % (a uto) Nucleated RBCs # Sodium Cancelled Potassium Cancelled Chloride Cancelled Carbon Dioxide Cancelled Anion Gap Cancelled BUN Cancelled Creatinine Cancelled GFR Calculation Cancelled Glucose Cancelled Calculated Osmolal ity Cancelled Calcium Cancelled Troponin T Baselin e Imaging Data^: Other Imaging: Radiologist's impression: [address] [id number] Scan ReportSigned Patient: Andi Rome #: [id number]: 5Acct#:[id number]/Sex: 85 / MADM Date: 03/24/21Loc: ERRoom/Bed:Attending Dr: Ordering Provider/Ordering MD: Jhonny Menjivar MD Date of Service: 03/24/21 Procedure(s): CT angio chest PE protcl [id number] Accession Number(s): [id number] Report Number: [id number] PROCEDURE INFORMATION: Exam: CTA Chest With Contrast Exam date and time: 03/24/2021 7:35 PM Age: 85 years old Clinical indication: Sternal or substernal pain; Prior surgery; Surgery type: Back surg, neck; Patient HX: HX of colon CA; Additional info: Chest pain and back surgery TECHNIQUE: Imaging protocol: Computed tomographic angiography of the chest with contrast. 3D rendering (Not supervised by radiologist): MIP and/or 3D reconstructed images were created by the technologist. Radiation optimization: All CT scans at this facility use at least one of these dose optimization techniques: automated exposure control; mA and/or kV adjustment per patient size (includes targeted exams where dose is matched to clinical indication); or iterative reconstruction. Contrast material: VISI 320; Contrast volume: 60 ml; Contrast route: INTRAVENOUS (IV); COMPARISON: CT chest abd pel w con* 03/18/2021 8:00 PM RADIATION DOSE METRICS: Total DLP (mGy-cm): 561.2 FINDINGS: Pulmonary arteries: There is no pulmonary embolus. Aorta: Unremarkable. No aortic aneurysm. No aortic dissection. Lungs: Nonspecific bibasilar consolidation is present, consistent with atelectasis, edema, or pneumonia. There is also mild dependent atelectasis. Diffuse mild interstitial and ground-glass opacity is also noted in the lungs best seen in the upper lobes compatible with mild interstitial edema. Pleural spaces: There are small bilateral pleural effusions. Heart: The heart is enlarged. Coronary artery calcifications are noted. Lymph nodes: Unremarkable. No enlarged lymph nodes. Liver: The liver has a grossly nodular contour and there is relative hypertrophy of the caudate lobe, consistent with end-stage cirrhosis. Gallbladder and bile ducts: There has been a cholecystectomy. 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 Kidneys and ureters: There is bilateral nephrolithiasis versus renal vascular calcifications. There is no evidence of hydronephrosis. Intraperitoneal space: There is a small volume of ascites. Bones/joints: Unchanged hyperextension/distraction fracture of T11 with disruption of the anterior longitudinal ligament and pedicle fractures is again identified. There is no acute bony abnormality. Extensive postoperative changes in the thoracolumbar spine are noted. Soft tissues: Unremarkable. CT/CT angio chest PE protcl [id number] IMPRESSION: 1. There is no pulmonary embolus. 2. Nonspecific bibasilar consolidation is present, consistent with atelectasis, edema, or pneumonia. 3. Diffuse mild interstitial and ground-glass opacity is also noted in the lungs best seen in the upper lobes compatible with mild interstitial edema. 4. Unchanged hyperextension transverse fracture of T11 with postoperative changes. Radiation Dose CTDIVOL = (mGy): DLP = 561.2 (mGy-cm) Dictated By:Frank Joshiigned By:Kyara Joshi Date/Time:03/24/212128DD/ [address] [id number] ReportSigned Patient: Andi Rome #: [id number]: 5Acct#:[id number]/Sex: 85 / MADM Date: 03/24/21Loc: ERRoom/Bed:Attending Dr: Ordering Provider/Ordering MD: Jhonny Menjivar MD Date of Service: 03/24/21 Procedure(s): XR chest 1V portable [id number] Accession Number(s): [id number] Report Number: [id number] PROCEDURE INFORMATION: Exam: XR Chest Exam date and time: 03/24/2021 6:35 PM Age: 85 years old Clinical indication: Pain; Chest pressure; Additional info: Chest pain TECHNIQUE: Imaging protocol: XR of the chest. Views: 1 view. Total images: 1 COMPARISON: CT chest abd pel w con* 03/18/2021 8:00 PM FINDINGS: Lungs: No acute focal pulmonary opacities are detected. Pleural spaces: Unremarkable. No pleural effusion. No pneumothorax. Heart/Mediastinum: Heart is enlarged but stable when compared to the prior exam. Bones/joints: Partially visualized spinal fusion hardware noted. Diffuse osteopenia noted. XR/XR chest 1V portable [id number] IMPRESSION: 1. Heart is enlarged but stable when compared to the prior exam. 2. No acute focal pulmonary opacities are detected. 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
[2021-03-24] MEDS: iodixanol 320 mg/mL 100mL Btl IV (21:33)
[2021-03-24] MEDS: aspirin 325 mg Tablet PO (22:25)
[2021-03-24 22:29] VITALS: BP 140/69; PULSE 81; RESP 21; O2SAT 97
[2021-03-24 23:04] VITALS: BMI 30.9
[2021-03-24 23:06] VITALS: BP 182/95; PULSE 82; RESP 16; TEMP 36.9; O2SAT 97
--- NOTE | 2021-03-24 23:42 | PM.HP ---
Providers/Chief Complaint Admitting Physician: Marcello Keene Primary Care Provider: Kamran Abdi MD Chief Complaint: CHEST PAIN History of Present Illness Andi Rome is a 85 year old male with past medical history of atrial fibrillation, on Coumadin, hypertension, autoimmune hepatitis, recent hospitalization and discharge after a mechanical fall with T11 unstable fracture for which he underwent spine fusion who is presenting today with complaints of chest pain. The pain is substernal described as tightness. No significant triggering factors. Was associated with some shortness of breath. Denies cough, palpitations, heartburn, nausea or vomiting, abdominal pain. Denies uncontrolled back pain. Patient denies any weakness. The patient denies any similar pain in the past. Blood pressure was elevated on presentation. The patient denies known history of coronary artery disease or heart attacks. His troponin was slightly elevated. However there were no acute ischemic changes on EKG. Review of Systems General: Reports: 10 or more systems reviewed and unremarkable except in HPI and below Medications/Allergies Home Medications Medication Instructions Recorded Confirmed Last Taken Type allopurinol 300 mg tablet 300 mg PO DAILY 08/20/19 03/24/21 03/24/21 History ascorbate calcium (vitamin C) 500 1,000 mg PO BID 08/20/19 03/24/21 03/24/21 History mg tablet azathioprine 50 mg tablet 50 mg PO DAILY 08/20/19 03/24/21 03/24/21 History famotidine 20 mg tablet 20 mg PO BID 08/20/19 03/24/21 03/24/21 History warfarin 5 mg tablet See Rx Instructions PO DAILY 08/20/19 03/24/21 03/22/21 History 2.5 MG diphenoxylate-atropine 2.5 1 tab PO Q6H PRN 03/31/20 03/24/21 Unknown History mg-0.025 mg tablet methenamine hippurate 1 gram tablet 1 g PO BID #60 tab 05/06/20 03/24/21 03/24/21 Rx alprazolam 0.25 mg PO DAILY PRN 03/19/21 03/24/21 Unknown History prednisone 10 mg PO DAILY 03/19/21 03/24/21 03/24/21 History acetaminophen [Aphen] 325 mg PO Q6H PRN #30 tab 03/23/21 03/24/21 Unknown Rx acetaminophen 500 mg PO BEDTIME 03/24/21 03/24/21 03/23/21 History Allergies Allergy/AdvReac Type Severity Reaction Status Date / Time No Known Allergies Allergy Unverified 08/20/19 14:16 PFSH Acute PFSH: Medical History (Updated 03/24/21 @ 23:46 by Marcello Keene) Atrial fibrillation Autoimmune hepatitis Azathioprine and prednisone Chronic anticoagulation coumadin, for recurrent DVT Colon cancer Fracture, thoracic vertebra 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 Gout History of DVT (deep vein thrombosis) recurrent History of stress test Hyperglycemia Hypertension Lower limb ulcer, ankle Recurrent UTI Thoracic spine fracture Urethral stricture Surgical History (Updated 03/19/21 @ 00:01 by Alaina Montana MD) H/O neck surgery H/O partial resection of colon due to cancer H/O total knee replacement right H/O transurethral resection of prostate History of bladder surgery History of cataract surgery History of cholecystectomy History of skin graft Family History Father , at age 65 Cancer lung Mother , at age 88 Alzheimer's dementia Social History (Updated 03/19/21 @ 00:57 by Alaina Montana MD) Smoking and tobacco status: never smoked Alcohol intake: never Marital status: Current occupational status: retired Vitals/I&O/Wt Last Vital Signs Temp 98.4 F 03/24/21 23:06 Pulse 82 03/24/21 23:06 Resp 16 03/24/21 23:06 BP 182/95 03/24/21 23:06 Pulse Ox 97 03/24/21 23:06 Weight last 48 hrs Weight 106.594 kg Weight 104.326 kg Physical Exam Narrative: EXAM NARRATIVE: The patient is awake alert oriented. No acute distress. Mood and affect are appropriate. Responses are adequate. Skin is warm and dry. Moist mucous memories Eyes PERRL, extraocular muscles intact Neck supple. No JVD Lungs are clear. No wheeze or crackles. No respiratory distress Heart S1, S2, regular Abdomen soft, nontender, bowel sounds are present Extremities. 2+ pitting edema bilaterally. No cyanosis. No calf tenderness bilaterally Neuro examination is nonfocal. Data : 03/24/21 20:10 03/24/21 21:00 Other Labs: Laboratory Results WBC 7.6 10^3/uL (4.0-10.0) 03/24/21 20:10 RBC 2.28 10^6/uL (4.1-5.3) L 03/24/21 20:10 Hgb 9.4 g/dL (11.7-16.6) L 03/24/21 20:10 Hct 25.3 % (42.0-52.0) L 03/24/21 20:10 MCV 111.0 fl (80-94) H 03/24/21 20:10 MCH 41.2 pg (28.0-34.0) H 03/24/21 20:10 MCHC 37.2 g/dL (30.0-36.0) H 03/24/21 20:10 RDW 17.1 % (12.1-15.1) H 03/24/21 20:10 Plt Count 150 10^3/cmm (130-400) 03/24/21 20:10 MPV 12.0 fL (7.4-10.4) H 03/24/21 20:10 Neut % (Auto) 78.2 % 03/24/21 20:10 Lymph % (Auto) 8.0 % 03/24/21 20:10 [place] % (Auto) 9.2 % 03/24/21 20:10 Eos % (Auto) 2.5 % 03/24/21 20:10 Baso % (Auto) 0.4 % 03/24/21 20:10 Neut # (Auto) 5.96 10^3/uL (1.8-7.7) 03/24/21 20:10 Lymph # (Auto) 0.6 10^3/uL (0.8-4.8) L 03/24/21 20:10 [place] # (Auto) 0.7 10^3/uL (0.2-0.9) 03/24/21 20:10 Eos # (Auto) 0.2 10^3/uL (0.0-0.8) 03/24/21 20:10 Baso # (Auto) 0.0 10^3/uL (0.0-0.1) 03/24/21 20:10 Nucleated RBC % (auto) 20.7 % 03/24/21 20:10 Nucleated RBCs # 1.6 /100WBC 03/24/21 20:10 Sodium Cancelled 03/24/21 21:00 Potassium Cancelled 03/24/21 21:00 Chloride Cancelled 03/24/21 21:00 Carbon Dioxide Cancelled 03/24/21 21:00 Anion Gap Cancelled 03/24/21 21:00 BUN Cancelled 03/24/21 21:00 Creatinine Cancelled 03/24/21 21:00 GFR Calculation Cancelled 03/24/21 21:00 Glucose Cancelled 03/24/21 21:00 Calculated Osmolality Cancelled 03/24/21 21:00 Calcium Cancelled 03/24/21 21:00 Troponin T Baseline 57 ng/L (0-15) H 03/24/21 20:10 Impressions Chest X-Ray 03/24/21 18:35 IMPRESSION: 1. Heart is enlarged but stable when compared to the prior exam. 2. No acute focal pulmonary opacities are detected. Radiation Dose CTDIVOL = (mGy): DLP = (mGy-cm) Chest CTA 03/24/21 19:35 IMPRESSION: 1. There is no pulmonary embolus. 2. Nonspecific bibasilar consolidation is present, consistent with atelectasis, edema, or pneumonia. 3. Diffuse mild interstitial and ground-glass opacity is also noted in the lungs best seen in the upper lobes compatible with mild interstitial edema. 4. Unchanged hyperextension transverse fracture of T11 with postoperative changes. Radiation Dose CTDIVOL = (mGy): DLP = 561.2 (mGy-cm) EKG. ATRIAL FIBRILLATION INCOMPLETE RIGHT BUNDLE BRANCH BLOCK [90+ ms QRS DURATION, TERMINAL R IN V1/V2, 40+ ms S IN I/aVL/V4/V5/V6] VOLTAGE CRITERIA FOR LVH [MEETS CRITERIA IN ONE OF: R(aVL), S(V1), R(V5), R(V5/V6)+S(V1)] POSSIBLE ANTERIOR MYOCARDIAL INFARCTION , PROBABLY OLD [30 ms Q WAVE IN V3/V4, OR R < 0.2 mV IN V4] A&P Assessment and plan (1) Chest pain: Status: Acute (2) Cardiomegaly: Status: Acute (3) Intractable back pain: Status: Acute (4) Hypertensive urgency: Status: Acute (5) Atrial fibrillation: Status: Acute Additional A&P Information The patient is a 85-year-old male with past medical history of hypertension, atrial fibrillation, autoimmune hepatitis, recent spinal fusion who is presenting with complaints of chest pain and shortness of breath. On presentation his blood pressure is severely elevated. Chest pain. The patient is being admitted for ACS rule out. He already received aspirin. We will continue monitoring EKG and troponin level. Will consider cardiac consult in the morning. Might need additional testing. Hypertensive urgency. We will start him on Coreg. Will use as needed hydralazine. We will adjust the treatments according to the blood pressure readings. Recent spinal fusion. We will continue pain management. History of atrial fibrillation. Rate controlled. His warfarin was resumed at discharge yesterday. Last INR today was 1.9. We will continue monitoring his INR. Anemia. Probably chronic. We will continue monitoring. CODE STATUS. The patient wants to be full code. The plan of care was discussed with the patient and his family. They verbalized understanding and agreement. 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
--- NOTE | 2021-03-25 00:35 | ECG_ITS ---
[facility] Test Date: 2021-03-25 Pat Name: Andi Rome Department: Room: 275 Gender: Male Operations Agent: : [id number] Requested By: Jhonny Menjivar Order Number: [id number] Jossy MD: Cheikh Tavarez M.D. Measurements Intervals Manning Rate: 76 P: -16 W[place]: 92 QRS: -11 QRSD: 100 T: 17 QT: 389 QTc: 439 Interpretive Statements SINUS RHYTHM WITH SINUS ARRHYTHMIA WITH SHORT WV INTERVAL INCOMPLETE RIGHT BUNDLE BRANCH BLOCK [90+ ms QRS DURATION, TERMINAL R IN V1/V2, 40+ ms S IN I/aVL/V4/V5/V6] VOLTAGE CRITERIA FOR LVH [MEETS CRITERIA IN ONE OF: R(aVL), S(V1), R(V5), R(V5/V6)+S(V1)] Compared to ECG 03/24/2021 20:21:05 Short W[place] interval now present Atrial fibrillation no longer present Myocardial infarct finding no longer present Electronically Signed On 03-26-2021 22:00:50 VEST BUSHELER by Cheikh Tavarez M.D. [id number]
[2021-03-25 01:50] LABS: Troponin 5 2HR 39.05 ng/L (0-15)
[2021-03-25 02:09] LABS: Blood Urea Nitrogen 23 mg/dL (8-23); Carbon Dioxide 13 mmol/L (22-29); Chloride 117 mmol/L (98-107); Glucose 73 mg/dL (65-115); Osmolality Calculated 288 mOsm/kg (285-295); Sodium 138 mmol/L (136-145)
[2021-03-25 02:12] LABS: Calcium 4.9 mg/dL (8.5-10.5)
--- NOTE | 2021-03-25 02:20 | PC.NURSE ---
Patient arrived to floor via stretcher, AAOx3 with confusion and delayed responses. Hypertensive and asymptomatic. 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 No IV in place, paged team to place using US. Manuel hose to BLE and wrap to RLE in place. Patient is edematous throughout entire body. Not able to turn self and educated on importance of care team turning him frequently patient states he agrees to this. Room is clutter free and call light in reach. Patient began pushing call light button repeatedly trying to get TV to work. Patient instructed on how to use remote. Patient currently resting peacefully, received critical lab values and physician notified with orders received. Will continue to monitor patient throughout remaining of shift until handoff is complete to oncoming nurse.
[2021-03-25] MEDS: calcium gluconate 0.1 gm/mL 10% SDV 10mL 1 GM IVP (02:40)
[2021-03-25 03:34] LABS: Chol HDL Ratio 3.96 mg/dL (1.0-5.00); Cholesterol 95 mg/dL (0-200); HDL Cholesterol 24 mg/dL (60-100); LDL Cholesterol Calculated 59 mg/dL (50-129); LDL HDL Ratio 2.46 RATIO (0.00-3.22); Magnesium 1.3 mg/dL (1.7-2.3); Triglycerides 61 mg/dL (0-150)
[2021-03-25 04:00] VITALS: BP 163/74; PULSE 78; RESP 18; TEMP 36.7; O2SAT 97
[2021-03-25 04:22] LABS: Ionized Calcium 1.1 mmol/L (1.1-1.4)
[2021-03-25 05:35] VITALS: PULSE 79
[2021-03-25 05:53] LABS: Troponin 5 6HR 59.21 ng/L (0-15)
[2021-03-25 05:54] LABS: Anion Gap 13.2 (5-19); Blood Urea Nitrogen 32 mg/dL (8-23); Calcium 7.7 mg/dL (8.5-10.5); Carbon Dioxide 25 mmol/L (22-29); Chloride 104 mmol/L (98-107); Glucose 100 mg/dL (65-115); Magnesium 2.2 mg/dL (1.7-2.3); Osmolality Calculated 293 mOsm/kg (285-295); Potassium 4.2 mmol/L (3.5-5.1); Sodium 138 mmol/L (136-145)
[2021-03-25 08:00] VITALS: BP 156/75; PULSE 79; RESP 18; TEMP 36.7; O2SAT 96
[2021-03-25] MEDS: ascorbic acid 500 mg Tablet 1000 MG PO ×2 (08:56→18:07)
[2021-03-25] MEDS: famotidine 20 mg Tablet PO ×2 (08:56→18:07)
[2021-03-25] MEDS: allopurinol 300 mg Tablet PO (08:56)
[2021-03-25] MEDS: predniSONE 10 mg Tablet PO (08:56)
[2021-03-25] MEDS: lidocaine 1% 5 ML in potassium chloride premix 100 ML 25 ML IV (11:47)
[2021-03-25 11:49] VITALS: BP 169/75; PULSE 79; RESP 18; TEMP 36.6; O2SAT 95
--- NOTE | 2021-03-25 14:35 | P.PN_ITS ---
Subjective Subjective: Interval history: Patient was seen and examined this morning, has reproducible left-sided chest pain. His other vitals and labs have been reviewed. Medications: Reviewed: Yes Vitals/I&O/Wt Last Vital Signs Temp 97.8 F 03/25/21 11:49 Pulse 79 03/25/21 11:49 Resp 18 03/25/21 11:49 BP 169/75 03/25/21 11:49 Pulse Ox 95 03/25/21 11:49 03/24/21 03/25/21 03/25/21 22:59 06:59 14:59 Intake Total 0 / 0 Output Total 50 / 50 Balance 0 / 0 -50 / -50 Weight last 48 hrs Weight 106.594 kg Weight 104.326 kg Physical Exam Const: COMMON NORMALS: patient oriented x3 HENMT: COMMON NORMALS: normocephalic and atraumatic HEAD & SCALP: normocephalic and atraumatic Resp: COMMON NORMALS: clear to auscultation bilaterally AUSCULTATION: clear to auscultation bilaterally Cardio: COMMON NORMALS: regular rate, regular rhythm, S1 normal heart sound present, S2 normal heart sound present, No gallops present (Cardio), No murmurs present (Cardio), No rub (Cardio) and Peripheral pulses 2+ throughout RATE: regular rate RHYTHM: regular rhythm HEART SOUNDS: S1 normal heart sound present and S2 normal heart sound present PERIPHERAL PULSES: Peripheral p ulses 2+ throughout GI: COMMON NORMALS: Normal to inspection, nondistended, normoactive bowel sounds present, Soft to palpation, non-tender, No hepatosplenomegaly present and no masses AUSCULTATION: Yes normoactive bowel sounds PALPATION: Yes Soft to palpation and Yes No hepatosplenomegaly present RECTAL EXAM: Yes deferred Extremity: COMMON NORMALS: no clubbing, cyanosis or edema and no pedal edema Neuro: COMMON NORMALS: patient oriented x3 Data : 03/24/21 20:10 03/25/21 04:15 A&P Assessment and plan (1) Chest pain: Patient likely has noncardiac chest pain, likely musculoskeletal, chest pain is reproducible. No acute EKG ST-T wave change, troponin trend has been negative Recent 2D echo:Echo quality was poor Normal left ventricular cavity size and systolic function. Left ventricular ejection fraction is estimated at 55-60 %. No RWMA. Current plan is to continue with pain medication. Continue telemetry monitoring. Family currently want conservative medical management Status: Acute (2) Hypertensive urgency: Amlodipine 5 mg po daily Status: Acute (3) Cardiomegaly: Status: Acute (4) Intractable back pain: Status: Acute (5) Atrial fibrillation: Status: Acute Additional A&P Information The patient is a 85-year-old male with past medical history of hypertension, atrial fibrillation, autoimmune hepatitis, recent spinal fusion who is presenting with complaints of chest pain and shortness of breath. On presentation his blood pressure is severely elevated. Chest pain. The patient is being admitted for ACS rule out. He already received aspirin. We will continue monitoring EKG and troponin level. Will consider cardiac consult in the morning. Might need additional testing. Hypertensive urgency. We will start him on Coreg. Will use as needed hydralazine. We will adjust the treatments according to the blood pressure readings. Recent spinal fusion. We will continue pain management. History of atrial fibrillation. Rate controlled. His warfarin was resumed at discharge yesterday. Last INR today was 1.9. We will continue monitoring his INR. Anemia. Probably chronic. We will continue monitoring. Autoimmune hepatitis: Continue azathioprine and prednisone Urinary retention: Patient self caths himself at [facility]. Bladder scan revealed 900 cc, urine. Juarez catheter was placed. CODE STATUS. The patient wants to be full code. The plan of care was discussed with the patient and his family. They verbalized understanding and agreement. Attestations Medical Necessity Statement*: Patient is to be in the hospital for evaluation and management of chest pain. Coding Level of Care Code Acute Disability Hearing Officer for Dean Laird Diagnoses Chest pain R07.9 Hypertensive urgency I16.0 Cardiomegaly I51.7 Intractable back pain M54.9 Atrial fibrillation I48.91
[2021-03-25] MEDS: warfarin 2.5 mg Tablet PO (15:22)
[2021-03-25] MEDS: amlodipine 5 mg Tablet PO ×2 (15:23→18:48)
[2021-03-25 15:58] VITALS: BP 160/77; PULSE 77; RESP 18; TEMP 36.7; O2SAT 96
--- NOTE | 2021-03-25 17:03 | PC.NURSE ---
Patient had not urinated since yesterday per patient. Bladder scanned patient. Bladder scan showed over 1000 mL. Juarez catheter was placed per Dr. Whitaker.
[2021-03-25] MEDS: HYDROcodone-acetaminophen 5-325 mg Tablet 1 TAB PO (18:07)
[2021-03-25] MEDS: tamsulosin 0.4 mg Capsule PO (18:48)
[2021-03-25 20:00] VITALS: BP 115/63; PULSE 76; RESP 18; TEMP 36.8; O2SAT 95
[2021-03-26] VITALS (9 sets, daily range): BP systolic 74–132; BP diastolic 52–70; PULSE 75–136; RESP 18–19; TEMP 36.6–37.1; O2SAT 93–99
[2021-03-26 05:23] LABS: Hematocrit 26.6 % (42.0-52.0); Hemoglobin 9.1 g/dL (11.7-16.6); Mean Corpuscular HGB Conc 34.2 g/dL (30.0-36.0); Mean Corpuscular Hemoglobin 40.3 pg (28.0-34.0); Mean Corpuscular Volume 117.7 fl (80-94); Mean Platelet Volume 12.3 fL (7.4-10.4); Platelet Count 174 10^3/cmm (130-400); Red Blood Count 2.26 10^6/uL (4.1-5.3); Red Cell Distribution Width 17.9 % (12.1-15.1); White Blood Count 9.1 10^3/uL (4.0-10.0)
[2021-03-26 05:41] LABS: Anion Gap 10.2 (5-19); Blood Urea Nitrogen 30 mg/dL (8-23); Calcium 7.7 mg/dL (8.5-10.5); Carbon Dioxide 25 mmol/L (22-29); Chloride 106 mmol/L (98-107); Glucose 101 mg/dL (65-115); Osmolality Calculated 290 mOsm/kg (285-295); Potassium 4.2 mmol/L (3.5-5.1); Sodium 137 mmol/L (136-145)
[2021-03-26 06:08] LABS: Slide Review Slide Review Perform
[2021-03-26 06:12] LABS: Absolute Eosinophils 0.2 10^3/cmm (0.0-0.7); Absolute Segmented Neutrophil 6.5 10/cmm (1.6-7.1); Band Neutrophils Absolute 0.2 10^3/cmm (0.0-1.2); Corrected White Blood Count 7.8 10^3/cmm (4.8-10.8); Eosinophils 3 %; Lymphocytes 14 %; Monocytes Absolute 0.9 10^3/cmm (0.1-0.6); Segmented Neutrophils 71 %; Total Cells Counted 100 (0-100)
[2021-03-26 06:14] LABS: Absolute Neutrophil 6.6 10^3/cmm (1.4-6.5); Anisocytosis 1+; Howell Jolly Bodies 1+; Lymphocytes Absolute 1.3 10^3/cmm (1.2-3.4); Macrocytosis 2+; Platelet Estimate Normal (Normal); Poikilocytosis 1+; Polychromasia 1+
[2021-03-26 06:27] LABS: Schistocytes Trace
[2021-03-26 06:33] LABS: Glucose Point of Care 107 mg/dL (70-110)
[2021-03-26] MEDS: tamsulosin 0.4 mg Capsule PO (08:38)
[2021-03-26] MEDS: amlodipine 5 mg Tablet PO (08:38)
[2021-03-26] MEDS: allopurinol 300 mg Tablet PO (08:38)
[2021-03-26] MEDS: famotidine 20 mg Tablet PO ×2 (08:38→17:56)
[2021-03-26] MEDS: predniSONE 10 mg Tablet PO (08:39)
[2021-03-26] MEDS: ascorbic acid 500 mg Tablet 1000 MG PO ×2 (08:39→17:56)
[2021-03-26] MEDS: HYDROcodone-acetaminophen 5-325 mg Tablet 1 TAB PO (08:42)
[2021-03-26] MEDS: warfarin 2.5 mg Tablet PO (14:55)
--- NOTE | 2021-03-26 19:06 | PM.PN ---
Subjective Subjective: Interval history: Patient was seen and examined this morning, continues to complain of intermittent left-sided chest pain. His other vitals and labs have been reviewed. Blood pressure is well controlled. Medications: Reviewed: Yes Vitals/I&O/Wt Last Vital Signs Temp 98.2 F 03/26/21 15:21 Pulse 97 03/26/21 15:21 Resp 18 03/26/21 15:21 BP 95/61 03/26/21 15:21 Pulse Ox 99 03/26/21 15:21 03/26/21 03/26/21 03/26/21 06:59 14:59 22:59 Intake Total 680 / 680 400 / 1080 Output Total 300 / 300 Balance 680 / 680 100 / 780 Weight last 48 hrs Weight 106.594 kg Physical Exam Const: COMMON NORMALS: patient oriented x3 HENMT: COMMON NORMALS: normocephalic and atraumatic HEAD & SCALP: normocephalic and atraumatic Resp: COMMON NORMALS: clear to auscultation bilaterally AUSCULTATION: clear to auscultation bilaterally Cardio: COMMON NORMALS: regular rate, regular rhythm, S1 normal heart sound present, S2 normal heart sound present, No gallops present (Cardio), No murmurs present (Cardio), No rub (Cardio) and Peripheral pulses 2+ throughout RATE: regular rate RHYTHM: regular rhythm HEART SOUNDS: S1 normal heart sound present and S2 normal heart sound present PERIPHERAL PULSES: Peripheral pulses 2+ throughout GI: COMMON NORMALS: Normal to inspection, nondistended, normoactive bowel sounds present, Soft to palpation, non-tender, No hepatosplenomegaly present and no masses AUSCULTATION: Yes normoactive bowel sounds PALPATION: Yes Soft to palpation and Yes No hepatosplenomegaly present RECTAL EXAM: Yes deferred Extremity: COMMON NORMALS: no clubbing, cyanosis or edema and no pedal edema Neuro: COMMON NORMALS: patient oriented x3 Urinary Catheter Management^: Juarez: Cath Placed During This Visit: yes Reason for Continuing Indwelling Catheter: Acute Urinary Retention or Obstruction Urinary Catheter Date of Insertion: 03/25/21 Urinary Catheter Time of Insertion: 17:06 Data : 03/26/21 04:52 03/26/21 04:52 A&P Assessment and plan (1) Chest pain: Patient likely has noncardiac chest pain, likely musculoskeletal, chest pain is reproducible. No acute EKG ST-T wave change, troponin trend has been negative Recent 2D echo:Echo quality was poor Normal left ventricular cavity size and systolic function. Left ventricular ejection fraction is estimated at 55-60 %. No RWMA. Current plan is to continue with pain medication. Repeat 2D echo: Troponin pro BNP Imdur 20 mg p.o. daily Continue telemetry monitoring. Family currently want conservative medical management Status: Acute (2) Hypertensive urgency: Currently blood pressure is well controlled. Status: Acute (3) Cardiomegaly: Status: Acute (4) Intractable back pain: Status: Acute (5) Atrial fibrillation: Status: Acute Additional A&P Information The patient is a 85-year-old male with past medical history of hypertension, atrial fibrillation, autoimmune hepatitis, recent spinal fusion who is presenting with complaints of chest pain and shortness of breath. On presentation his blood pressure is severely elevated. Chest pain. The patient is being admitted for ACS rule out. He already received aspirin. We will continue monitoring EKG and troponin level. Will consider cardiac consult in the morning. Might need additional testing. Hypertensive urgency. We will start him on Coreg. Will use as needed hydralazine. We will adjust the treatments according to the blood pressure readings. Recent spinal fusion. We will continue pain management. History of atrial fibrillation. Rate controlled. His warfarin was resumed at discharge yesterday. Last INR today was 1.9. We will continue monitoring his INR. Anemia. Probably chronic. We will continue monitoring. Autoimmune hepatitis: Continue azathioprine and prednisone Urinary retention: Patient self caths himself at [facility]. Bladder scan revealed 900 cc, urine. Juarez catheter was placed. CODE STATUS. The patient wants to be full code. The plan of care was discussed with the patient and his family. They verbalized understanding and agreement. Attestations Medical Necessity Statement*: Patient needs to be in hospital for monitoring and management of persistent left-sided chest pain. Coding Level of Care Code Acute Needle Leader for [facility] Fwd Diagnoses Chest pain R07.9 Hypertensive urgency I16.0 Cardiomegaly I51.7 Intractable back pain M54.9 Atrial fibrillation I48.91
--- NOTE | 2021-03-26 22:31 | ECG_ITS ---
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 Measurements Intervals [place] Rate: 136 P: FL: QRS: -22 QRSD: 81 T: 99 QT: 293 QTc: 441 Interpretive Statements ATRIAL FLUTTER/TACHYCARDIA WITH RAPID VENTRICULAR RESPONSE BORDERLINE LEFT AXIS DEVIATION [QRS AXIS < -20] NONSPECIFIC ST & T-WAVE ABNORMALITY Compared to ECG 03/25/2021 00:21:23 T-wave abnormality now present Sinus rhythm no longer present Sinus arrhythmia no longer present Short FL interval no longer present Incomplete right bundle-branch block no longer present Left ventricular hypertrophy no longer present Electronically Signed On 03-27-2021 16:45:42 ADMINISTRATIVE SERVICES ASSISTANT by Cheikh Tavarez M.D. [id number]
--- NOTE | 2021-03-26 23:20 | PC.NURSE ---
hospitalist notified of EKG result, order received for 5 mg of Metoprolol IV push one time. monitor BP
[2021-03-26] MEDS: metoprolol tartrate 1 mg/1 mL SDV 5 mL 5 MG IVP (23:31)
[2021-03-27] VITALS (7 sets, daily range): BP systolic 106–143; BP diastolic 58–65; PULSE 73–77; RESP 16–18; TEMP 36.8; O2SAT 93–97
[2021-03-27 05:13] LABS: INR 2.82 (0.8-1.2)
[2021-03-27 05:23] LABS: Troponin T (5th) Once 54 ng/L (0-15)
[2021-03-27 05:29] LABS: Anion Gap 10.3 (5-19); Blood Urea Nitrogen 30 mg/dL (8-23); Calcium 7.6 mg/dL (8.5-10.5); Carbon Dioxide 25 mmol/L (22-29); Chloride 106 mmol/L (98-107); Glucose 111 mg/dL (65-115); NT Pro B Type Natriuretic Pept 2050 pg/mL (0-450); Osmolality Calculated 291 mOsm/kg (285-295); Potassium 4.3 mmol/L (3.5-5.1); Sodium 137 mmol/L (136-145)
[2021-03-27 05:46] LABS: Eosinophils 1 %; Lymphocytes 6 %; Segmented Neutrophils 78 %; Total Cells Counted 100 (0-100)
[2021-03-27 05:50] LABS: Hematocrit 25.3 % (42.0-52.0); Hemoglobin 8.7 g/dL (11.7-16.6); Mean Corpuscular HGB Conc 34.4 g/dL (30.0-36.0); Mean Corpuscular Hemoglobin 40.7 pg (28.0-34.0); Mean Corpuscular Volume 118.2 fl (80-94); Mean Platelet Volume 12.4 fL (7.4-10.4); Platelet Count 188 10^3/cmm (130-400); Red Blood Count 2.14 10^6/uL (4.1-5.3); Red Cell Distribution Width 18.2 % (12.1-15.1); White Blood Count 8.5 10^3/uL (4.0-10.0)
[2021-03-27 05:51] LABS: Absolute Neutrophil 6.6 10^3/cmm (1.4-6.5); Giant Platelets Trace; Platelet Estimate Normal (Normal)
[2021-03-27 05:52] LABS: Anisocytosis 2+; Hypochromasia 1+; Poikilocytosis 2+
[2021-03-27 05:53] LABS: Burr Cells Trace
[2021-03-27] MEDS: acetaminophen 325 mg Tablet 650 MG PO ×2 (08:26→15:51)
[2021-03-27] MEDS: isosorbide mononitrate 20 mg Tablet PO (08:26)
[2021-03-27] MEDS: tamsulosin 0.4 mg Capsule PO (08:26)
[2021-03-27] MEDS: allopurinol 300 mg Tablet PO (08:27)
[2021-03-27] MEDS: ascorbic acid 500 mg Tablet 1000 MG PO ×2 (08:27→17:21)
[2021-03-27] MEDS: predniSONE 10 mg Tablet PO (08:27)
[2021-03-27] MEDS: famotidine 20 mg Tablet PO ×2 (08:27→17:21)
--- NOTE | 2021-03-27 09:28 | USCV_ITS ---
Andi Rome Age: 85 Gender: M : 1935 Exam Date: 03/27/2021 10:42 Ordering Phys: David Whitaker MD Technologist: Exam Location: [facility] [place] Indication: CHEST PAIN BP: 134 / 72 HR: 75 Rhythm: Sinus Technical Quality: Adequate MEASUREMENTS (Male / Female) Normal Values 2D ECHO LV Diastolic Diameter PLAX 3.3 cm 4.2 - 5.9 / 3.9 - 5.3 cm LV Systolic Diameter PLAX 1.8 cm IVS Diastolic Thickness 1.1 cm 0.6 - 1.0 / 0.6 - 0.9 cm IVS Systolic Thickness 1.1 cm LVPW Diastolic Thickness 1.0 cm 0.6 - 1.0 / 0.6 - 0.9 cm LVPW Systolic Thickness 1.2 cm LVOT Diameter 3.2 cm LV Ejection Fraction 2D Teich 74.4 % LV Ejection Fraction MOD 2C 56.9 % LV Ejection Fraction 2C AL 56.9 % LA Diameter 4.4 cm DOPPLER LVOT Peak Velocity 123.0 cm/s MV Area PHT 5.4 cm squared Mitral E to A Ratio 1.0 MV E' Velocity 71.0 cm/s TR Peak Velocity 130.0 cm/s TR Peak Gradient 6.8 mmHg TV Peak E Velocity 76.0 cm/s Right Atrial Pressure 3.0 mmHg Pulmonary Artery Systolic Pressu 9.8 mmHg FINDINGS Left Ventricle Normal left ventricular cavity size. Normal left ventricular systolic function. Left ventricular ejection fraction is estimated at 60 %. Although no diagnostic regional wall motion abnormality could be identified, this possibility cannot be completely excluded based on the study. Right Ventricle Right ventricle not well visualized. Right ventricular systolic pressure 9.8 mmHg. Right Atrium Right atrium not well visualized. Left Atrium Probably normal left atrial size. Mitral Valve Mild mitral annular calcification. Mildly thickened mitral valve. Aortic Valve Aortic valve not well visualized. No aortic valve stenosis. Tricuspid Valve Tricuspid valve not well visualized. Pulmonic Valve Pulmonic valve not well visualized. Pericardium No pericardial effusion. Aorta Aorta not well visualized. CONCLUSIONS 1. This is a technically difficult and limited study. 2. Normal left ventricle size and systolic function. Left ventricular ejection fraction is estimated at 60 %. Although no diagnostic regional wall motion abnormality could be identified, this possibility cannot be completely excluded based on the study. 3. There may not have been any significant change when compared to echo dated 03/20/2021. Estrella Stearns MD (Electronically Signed) Final Date: 27 March 2021 18:23 S
[2021-03-27] MEDS: perflutren protein-a microsphr 0.22 mg/mL SDV 3 mL IV (11:42)
--- NOTE | 2021-03-27 15:10 | P.PN_ITS ---
Subjective Subjective: Interval history: Patient was seen and examined this morning, continue to complain of intermittent chest pain.Was hypotensive overnight but the blood pressure has been fine all day. He was started on IMDUR 20 mg po daily.He has remained afebrile,saturating well on room air. Medications: Reviewed: Yes Vitals/I&O/Wt Last Vital Signs Temp 98.3 F 03/27/21 12:03 Pulse 75 03/27/21 12:03 Resp 16 03/27/21 12:03 BP 114/58 03/27/21 12:03 Pulse Ox 95 03/27/21 12:03 03/27/21 03/27/21 03/27/21 06:59 14:59 22:59 Intake Total 320 / 1400 120 / 120 Output Total 581 / 881 125 / 125 Balance -261 / 519 -5 / -5 Weight last 48 hrs Weight 109.996 kg Physical Exam Const: COMMON NORMALS: patient oriented x3 HENMT: COMMON NORMALS: normocephalic and atraumatic HEAD & SCALP: normocephalic and atraumatic Resp: COMMON NORMALS: clear to auscultation bilaterally EFFORT & INSPECTION: Yes symmetric chest movement AUSCULTATION: clear to auscultation bilaterally Cardio: COMMON NORMALS: regular rate, regular rhythm, S1 normal heart sound p resent, S2 normal heart sound present, No gallops present (Cardio), No murmurs present (Cardio), No rub (Cardio) and Peripheral pulses 2+ throughout RATE: regular rate RHYTHM: regular rhythm HEART SOUNDS: S1 normal heart sound present and S2 normal heart sound present PERIPHERAL PULSES: Peripheral pulses 2+ throughout GI: COMMON NORMALS: Normal to inspection, nondistended, normoactive bowel sounds present, Soft to palpation, non-tender, No hepatosplenomegaly present and no masses AUSCULTATION: Yes normoactive bowel sounds PALPATION: Yes Soft to palpation and Yes No hepatosplenomegaly present RECTAL EXAM: Yes deferred Extremity: COMMON NORMALS: no clubbing, cyanosis or edema and no pedal edema Neuro: COMMON NORMALS: patient oriented x3 Urinary Catheter Management^: Juarez: Cath Placed During This Visit: yes Reason for Continuing Indwelling Catheter: Acute Urinary Retention or Obstruction Urinary Catheter Date of Insertion: 03/25/21 Urinary Catheter Time of Insertion: 17:06 Data : 03/27/21 04:34 03/27/21 04:34 A&P Assessment and plan (1) Chest pain: Patient likely has noncardiac chest pain, likely musculoskeletal, chest pain is reproducible. No acute EKG ST-T wave change, troponin trend has been negative Recent 2D echo:Echo quality was poor Normal left ventricular cavity size and systolic function. Left ventricular ejection fraction is estimated at 55-60 %. No RWMA. Current plan is to continue with pain medication. Imdur 20 mg p.o. daily Repeat 2D echo: Troponin:54 pro BNP:2049 Continue telemetry monitoring. Family currently want conservative medical management and no aggressive intervention. Status: Acute (2) Hypertensive urgency: Currently blood pressure is well controlled. He is not on anti htn medication at home Status: Acute (3) Cardiomegaly: Status: Acute (4) Intractable back pain: Status: Acute (5) Atrial fibrillation: Status: Acute Additional A&P Information The patient is a 85-year-old male with past medical history of hypertension, atrial fibrillation, autoimmune hepatitis, recent spinal fusion who is presenting with complaints of chest pain and shortness of breath. On pres entation his blood pressure is severely elevated. Chest pain. The patient is being admitted for ACS rule out. He already received aspirin. We will continue monitoring EKG and troponin level. Will consider cardiac consult in the morning. Might need additional testing. Hypertensive urgency. We will start him on Coreg. Will use as needed hydralazine. We will adjust the treatments according to the blood pressure readings. Recent spinal fusion. We will continue pain management. History of atrial fibrillation. Rate controlled. His warfarin was resumed at discharge yesterday. Last INR today was 1.9. We will continue monitoring his INR. Anemia. Probably chronic. We will continue monitoring. Autoimmune hepatitis: Continue azathioprine and prednisone Urinary retention: Patient self caths himself at intermediate. Bladder scan revealed 900 cc, urine. Juarez catheter was placed. CODE STATUS. The patient wants to be full code. The plan of care was discussed with the patient and his family. They verbalized understanding and agreement. Attestations Medical Necessity Statement*: Patient nneds to be in hospital for chest pain management and work up, awaiting 2D eCHO Study. 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itan Diagnoses Chest pain R07.9 Hypertensive urgency I16.0 Cardiomegaly I51.7 Intractable back pain M54.9 Atrial fibrillation I48.91
[2021-03-28] VITALS: BP 118/67; PULSE 71; RESP 16; TEMP 36.2; O2SAT 95
[2021-03-28 04:00] VITALS: BP 121/63; PULSE 68; RESP 16; TEMP 36.4; O2SAT 94
[2021-03-28 05:52] VITALS: PULSE 74
--- NOTE | 2021-03-28 07:13 | PC.NURSE ---
AM NOTE AWAKENED PT PER THIS NURSE - PT ABLE TO STATE YEAR BUT STATES WE ARE AT NEW HOME
[2021-03-28 08:00] VITALS: BP 120/50; PULSE 79; RESP 16; TEMP 36.7; O2SAT 100
--- NOTE | 2021-03-28 08:38 | PC.SOCIAL ---
IMM update IMM updated with patient. Verbalized an understanding. Copy Pg2 provided. Initialled, dated, timed, and placed in chart.
[2021-03-28] MEDS: ascorbic acid 500 mg Tablet 1000 MG PO (08:48)
[2021-03-28] MEDS: tamsulosin 0.4 mg Capsule PO (08:48)
[2021-03-28] MEDS: allopurinol 300 mg Tablet PO (08:49)
[2021-03-28] MEDS: predniSONE 10 mg Tablet PO (08:49)
[2021-03-28] MEDS: famotidine 20 mg Tablet PO (08:49)
[2021-03-28] MEDS: isosorbide mononitrate 20 mg Tablet PO (08:57)
--- NOTE | 2021-03-28 10:14 | PM.DCS ---
Discharge Providers Date of Admission: 03/25/21 18:12 Date of Discharge: March 28, 2021 Attending Provider at Admission: Marcello Keene Attending Provider at Discharge: David Whitaker MD Primary Care Provider: Kamran Abdi MD Diagnoses at Discharge Discharge Diagnosis (1) Chest pain: Status: Acute (2) Hypertensive urgency: Status: Acute (3) Cardiomegaly: Status: Acute (4) Intractable back pain: Status: Acute (5) Atrial fibrillation: Status: Acute Reason for Visit Reason for Visit: CHEST PAIN Hospital Course Hospital Course 85 year old male with past medical history of atrial fibrillation, on Coumadin, hypertension, autoimmune hepatitis, recent hospitalization and discharge after a mechanical fall with T11 unstable fracture for which he underwent spine fusion who is presenting today with complaints of chest pain. The pain is substernal described as tightness.No significant triggering factors. Blood pressure was elevated at the time of admission. Was admitted for the management of chest pain, troponin trend were without significant delta, EKG failed to show any acute ST-T wave changes, 2D echo done during the hospital stay: Was of poor quality:Normal left ventricular cavity size. Normal left ventricular systolic function. Left ventricular ejection fraction is estimated at 60 %. Although no diagnostic regional wall motion abnormality could be identified, this possibility cannot be completely excluded.CT angio chest PE protcl: no pulmonary embolus.Telemetry done during the hospital stay failed to show any significant arrhythmia. chest pain was reproducible, but patient continued to complain of mild intermittent substernal chest pain, hence he was imdur 20 mg p.o. daily, for possible cardiac chest pain, at this point in time family did not want any aggressive intervention, wants to continue with medical management. Admission hypertensive urgency was likely due to back pain, his blood pressure was well controlled during the hospital stay, he is not on any antihypertensive medication at home. For his A. fib rate was well controlled he was continued on warfarin for anticoagulation, for his AIh: Continued on azathioprine and prednisone.Patient also had urinary retention during the hospital stay for which Juarez catheter was placed, patient needs intermittent catheterization at residential.Juarez catheter was removed on discharge. Tamsulosin was also started. At the time of discharge his chest pain has improved, patient will continue to follow with his primary care physician as an outpatient.Patient responded well to the above medical management and is being discharged in stable condition to residential. Physical Exam Const: COMMON NORMALS: patient oriented x3 HENMT: COMMON NORMALS: normocephalic and atraumatic HEAD & SCALP: normocephalic and atraumatic Resp: COMMON NORMALS: clear to auscultation bilaterally EFFORT & INSPECTION: Yes symmetric chest movement AUSCULTATION: clear to auscultation bilaterally Cardio: COMMON NORMALS: regular rate, regular rhythm, S1 normal heart sound present, S2 normal heart sound present, No gallops present (Cardio), No murmurs present (Cardio), No rub (Cardio) and Peripheral pulses 2+ throughout RATE: regular rate RHYTHM: regular rhythm HEART SOUNDS: S1 normal heart sound present and S2 normal heart sound present PERIPHERAL PULSES: Peripheral pulses 2+ throughout GI: COMMON NORMALS: Normal to inspection, nondistended, normoactive bowel sounds present, Soft to palpation, non-tender, No hepatosplenomegaly present and no masses AUSCULTATION: Yes normoactive bowel sounds PALPATION: Yes Soft to palpation and Yes No hepatosplenomegaly present RECTAL EXAM: Yes deferred Extremity: COMMON NORMALS: no clubbing, cyanosis or edema and no pedal edema Neuro: COMMON NORMALS: patient oriented x3 Urinary Catheter Management^: Juarez: Cath Placed During This Visit: yes Reason for Continuing Indwelling Catheter: Acute Urinary Retention or Obstruction Urinary Catheter Date of Insertion: 03/25/21 Urinary Catheter Time of Insertion: 17:06 Discharge Data Data Completed and Pending: Completed Studies During Hospitalization Category Date Time Status CT angio chest PE protcl 00201 Urge nt Cat Scan 03/24/21 19:35 Completed XR chest 1V susie ble 03111 Urgent Exams 03/24/21 18:35 Completed CV. echo wo/w con trast [id number] Routin e Ultrasound 03/27/21 09:28 Completed Pending at discharge Category Date Time Status Prothrombin Time INR AM LABS Lab 03/29/21 04:00 Ordered Labs from last 24 hours 03/28/21 04:57 PT 30.80 H INR 2.90 H Vitals: Last Vital Signs Temp 97.5 F L 03/28/21 04:00 Pulse 74 03/28/21 05:52 Resp 16 03/28/21 04:00 BP 121/63 03/28/21 04:00 Pulse Ox 94 03/28/21 04:00 Discharge Plan Discharge Patient Disposition: Home Condition: Stable Prescriptions: New isosorbide mononitrate 20 mg Tablet 20 mg PO DAILY 30 Days Qty: 30 RF: 0 tamsulosin 0.4 mg Capsule 0.4 mg PO DAILY 30 Days Qty: 30 RF: 0 nitroglycerin 0.4 mg Tablet, Sublingual 0.4 mg sublingual Q5M PRN (Reason: Chest Pain) 30 Days Qty: 30 RF: 0 hydrocodone-acetaminophen 5-300 mg tablet 1 tab PO Q6H PRN (Reason: pain) 7 Days Qty: 10 RF: 0 Continued diphenoxylate-atropine [Lomotil] 2.5-0.025 mg tablet 1 tab PO Q6H PRN (Reason: Diarrhea) RF: 0 ascorbate calcium (vitamin C) 500 mg tablet 1,000 mg PO BID RF: 0 warfarin 5 mg tablet See Rx Instructions PO DAILY RF: 0 allopurinol 300 mg tablet 300 mg PO DAILY RF: 0 famotidine 20 mg tablet 20 mg PO BID RF: 0 azathioprine 50 mg tablet 50 mg PO DAILY RF: 0 methenamine hippurate 1 gram tablet 1 g PO BID Qty: 60 RF: 12 acetaminophen 500 mg Tablet 500 mg PO BEDTIME RF: 0 prednisone 10 mg Tablet 10 mg PO DAILY RF: 0 alprazolam 0.25 mg tablet 0.25 mg PO DAILY PRN (Reason: anxiety) RF: 0 acetaminophen [Aphen] 325 mg tablet 325 mg PO Q6H PRN (Reason: fever or pain) Qty: 30 RF: 0 Discharge Orders: Discharge Order (Routine); Ordered 03/28/21 Ordered By: David Whitaker Referrals: Kamran Abdi MD [Primary Care Provider] - 04/14/21 12:00 pm Discharge Diet: Soft Mechanical Discharge Activity: Increase activity as tolerated Patient Instructions: Nitroglycerin (By mouth), Hydrocodone/Acetaminophen (By mouth), Isosorbide Mononitrate (By mouth), Tamsulosin (By mouth), Opioid Safety Discharge Attestations Time Spent in Discharge Care*: less than 30 min Specific Discharge Activities: educating patient, educating and/or supporting family/caregiver, discussing with pcp/other providers, discussing with family service caseworker/social workers/dc planners, documenting/other paperwork and evaluating patient/reviewing data Status at Discharge: Cognitive status at discharge: cognitively intact, Behavioral status at discharge: cooperative, Functional status at discharge: other assisted ambulation Overall status at discharge: patient is back to baseline Quality Metrics Clinical Quality Measures During this hospital stay, did patient experience: None Coding Level of Care Code Acute Chg FW CHAD note Diagnoses Chest pain R07.9 Hypertensive urgency I16.0 Cardiomegaly I51.7 Intractable back pain M54.9 Atrial fibrillation I48.91
[2021-03-28] MEDS: HYDROcodone-acetaminophen 5-325 mg Tablet 1 TAB PO (10:54)
--- NOTE | 2021-03-28 11:20 | PC.NURSE ---
Addendum entered by Teresa Her RN 03/28/21 11:51: NOTIFIED POLO UPON CALLING REPORT THAT MAYUR UPPER EXT REMAIN WITH SKIN TEARS COVERED - DRESSING TO RIGHT FA C/D/I - LEFT WITH AVE C/D/I - NOTED RIGHT ANKLE PRESSURE ULCER AND LARGE BRUISE TO RIGHT SIDE EXTENDING LATERALLY ANTERIOR TO POSTERIOR Original Note: REPORT [facility] REPORT CALLED TO POLO GILBERT RN AT [facility] - AT SIDE AND AWARE OF TRANSFER
[2021-03-28 11:39] LABS: SARS Covid-2 Antigen Negative (Negative)
[2021-03-28 12:10] VITALS: BP 120/50; PULSE 79; RESP 16; TEMP 36.7; O2SAT 100
== END 2021-03-28 12:11 | disposition skilled nursing facility (03) | DRG 305 ==
LOC: ER 21:57 → MEDSURG 22:01
PROVIDERS: Admitting Provider Internal Medicine; Emergency Provider Emergency Medicine; PCP Family Medicine; Visit Provider Internal Medicine
DX: I16.0 Hypertensive urgency (principal); R07.2 Precordial pain; I11.9 Hypertensive heart disease without heart failure; I48.91 Unspecified atrial fibrillation; K75.4 Autoimmune hepatitis; M54.9 Dorsalgia, unspecified; D64.9 Anemia, unspecified; R33.9 Retention of urine, unspecified; I95.9 Hypotension, unspecified; Z98.1 Arthrodesis status; Z79.01 Long term (current) use of anticoagulants; Z86.718 Personal history of other venous thrombosis and embolism; Z87.440 Personal history of urinary (tract) infections; Z90.49 Acquired absence of other specified parts of digestive tract; Z96.651 Presence of right artificial knee joint; Z90.79 Acquired absence of other genital organ(s); Z85.038 Personal history of other malignant neoplasm of large intestine
CPT/HCPCS: 36415; 36416; 51702; 71045; 71275; 80048; 80061; 82330; 82962; 83735; 83880; 84484; 85007; 85025; 85027; 85610; 87426; 93005; 96365; 96366; 96375; 99285; C8929; G0378; J0610; J3480; J3490; J7500; J7512; Q9956; Q9967

== ENCOUNTER 2021-04-01 09:59 | Outpatient (CLI) | payer MEDICARE, OTHER, SELFPAY ==
[2021-04-01 10:45] LABS: INR 4.27 (0.8-1.2)
== END 2021-04-01 10:00 | disposition home or self-care (01) ==
PROVIDERS: Internal Medicine; PCP Family Medicine; Visit Provider Family Medicine
DX: I48.91 Unspecified atrial fibrillation (principal); G08 Intracranial and intraspinal phlebitis and thrombophlebitis
CPT/HCPCS: 85610

== ENCOUNTER 2021-04-11 08:29 | Emergency (ER) | payer MEDICARE, OTHER, SELFPAY ==
[2021-04-11 08:36] VITALS: BP 82/50; PULSE 71; RESP 24; TEMP 36.8; O2SAT 94; BMI 29.7
--- NOTE | 2021-04-11 08:44 | CT_ITS ---
WS: [id number] CT HEAD NONCONTRAST HISTORY: AMS TECHNIQUE: Contiguous axial imaging performed through the brain in 2.5 mm imaging. Bone and soft tiss ue windows. Sagittal and coronal reformats reviewed. All CT scans at [facility] use at least one of these dose optimization techniques: automated exposure control; mA and/or kV adjustment per pa tient size (includes targeted exams where dose is matched to clinical indication); or iterative recon struction. DLP: 931.83 mGy.cm COMPARISON: 03/18/2021 No acute intracranial hemorrhage, midline shift or mass effect. Mild symmetric atrophy and chronic ischemic disease. Prior lacunar infarct inferior LEFT basal gangli a. Smaller lacunar infarct in the external capsule on the RIGHT. Ventricles: Ventricles and extra-axial spaces are mildly prominent on the basis of atrophy. No inferior displacement of cerebellar tonsils. Paranasal sinuses: As visualized are clear. Mastoid air cells: Well pneumatized. Calvarium and scalp: Skull is intact with no soft tissue edema or swelling. CT/CT head wo con* [id number] IMPRESSION: 1. No acute intracranial hemorrhage or edema. 2. Mild atrophy and mild chronic ischemic disease. 3. Small lacunar infarcts bilaterally as described above.
--- NOTE | 2021-04-11 08:44 | ECG_ITS ---
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 Measurements Intervals [place] Rate: 70 P: 5 NV: 136 QRS: -3 QRSD: 98 T: 45 QT: 401 QTc: 434 Interpretive Statements SINUS RHYTHM POSSIBLE RIGHT VENTRICULAR CONDUCTION DELAY [RSR (QR) IN V1/V2] Compared to ECG 03/26/2021 22:44:47 Atrial flutter no longer present T-wave abnormality no longer present Electronically Signed On 04-12-2021 17:40:30 BURNER TECHNICIAN by Cheikh Tavarez M.D. [email or web address]
--- NOTE | 2021-04-11 08:44 | XRR_ITS ---
PROCEDURE INFORMATION: Exam: XR Chest Exam date and time: 04/11/2021 8:44 AM Age: 86 years old Clinical indication: Cough and dyspnea; Additional info: Dyspnea/cough TECHNIQUE: Imaging protocol: XR of the chest. Views: 1 view. COMPARISON: CR (CHEST, ) 03/24/2021 6:43 PM FINDINGS: Lungs: Diminutive inspiratory volume. Infiltrate lower left lobe. Pleural spaces: Minor blunting at the costophrenic angles which could be on the basis of pleural thickening or small effusions. No pneumothorax. Heart/Mediastinum: Cardiomediastinal silhouette is similar. Bones/joints: Partial visualization of lower thoracic hardware. Degenerative changes of right acromioclavicular joint and glenohumeral joint. Osteopenia. Soft tissues: Likely superimposed external soft tissue opacity at the right lung apex. XR/XR chest 1V portable [id number] IMPRESSION: 1. Suspicion pneumonic infiltrate left lower lobe. 2. Probable superimposed densities at the right lung apex in the setting of rotation. 3. Likely small pleural effusions slightly greater on the left. Radiation Dose CTDIVOL = (mGy): DLP = (mGy-cm)
[2021-04-11 08:45] VITALS: BP 110/62; PULSE 70; RESP 18; O2SAT 100
[2021-04-11 08:46] LABS: Glucose Point of Care 113 mg/dL (70-110)
[2021-04-11] MEDS: naloxone 0.4 mg/ml SDV IVP (08:53)
[2021-04-11] MEDS: sodium chloride 0.9% 1,000 ML 999 ML IV (08:59)
[2021-04-11 09:04] LABS: ABG PCO2 35.3 mmHg (35-45); ABG PH Result 7.45 (7.35-7.45); Arterial Blood Gas Hematocrit 32.1 % (42-52); Base Excess ABG 0.6 mmol/L (-2.0-2.0); Blood Gas Allen Test Pos; Blood Gas Operator Identificat CAK; Blood Gas Sample Site Radial, left; Blood Gas Sample Type Arterial; Carboxyhemoglobin 1.6 %THgb (0.4-20.1); HCO3 ABG 24.4 mmol/L (22-26); HGB O2 Sat 98.1 % (95-100); Ionized Calcium Level - ABG 1.2 mmol/L (1.1-1.4); Methemoglobin 0.3 % (0.4-1.5); Oxygen Device NC; Oxygen Saturation ABG > 100.0; Potassium Level - ABG 3.6 mmol/L (3.5-5.0); Total Hemoglobin 10.5 g/dL (14-18)
[2021-04-11 09:08] LABS: Basophils % 0.6 %; Eosinophils # 0.1 10^3/uL (0.0-0.8); Hematocrit 32.5 % (42.0-52.0); Hemoglobin 11.6 g/dL (11.7-16.6); Lymphocytes # 1.3 10^3/uL (0.8-4.8); Lymphocytes % 17.9 %; Mean Corpuscular HGB Conc 35.7 g/dL (30.0-36.0); Mean Corpuscular Hemoglobin 39.3 pg (28.0-34.0); Mean Corpuscular Volume 110.2 fl (80-94); Monocytes # 0.5 10^3/uL (0.2-0.9); Monocytes % 6.9 %; Neutrophils # 5.13 10^3/uL (1.8-7.7); Neutrophils % 71.8 %; Nucleated Red Blood Cells # 0.3 /100WBC; Nucleated Red Blood Cells % 4.6 %; Platelet Count 209 10^3/cmm (130-400); Red Blood Count 2.95 10^6/uL (4.1-5.3); Red Cell Distribution Width 14.8 % (12.1-15.1); White Blood Count 7.1 10^3/uL (4.0-10.0)
[2021-04-11 09:26] LABS: Alanine Aminotransferase 23 U/L (0-41); Albumin Level 2.5 g/dL (3.5-5.2); Alkaline Phosphatase 301 IU/L (40-130); Aspartate Amino Transferase 35 U/L (0-40); Blood Urea Nitrogen 34 mg/dL (8-23); Calcium 7.8 mg/dL (8.5-10.5); Carbon Dioxide 22 mmol/L (22-29); Chloride 106 mmol/L (98-107); Creatine Phosphokinase 36 U/L (39-308); Glucose 108 mg/dL (65-115); Osmolality Calculated 294 mOsm/kg (285-295); Sodium 138 mmol/L (136-145); Total Bilirubin 1.4 mg/dL (0.15-1.2); Total Protein 5.5 g/dL (6.6-8.7)
[2021-04-11 09:27] VITALS: BP 103/62; O2SAT 100
[2021-04-11 09:28] LABS: Troponin(5th) Baseline 77 ng/L (0-15)
[2021-04-11 09:30] LABS: Lactic Sepsis W/Reflex 2.3 mmol/L (0.5-2.2)
--- NOTE | 2021-04-11 09:35 | ED_ITS ---
HPI - Altered Mental Status General: Chief Complaint: Altered Mental Status Stated Complaint: UNRESPONSIVE Time Seen by Provider: 04/11/21 08:31 History of Present Illness: HPI narrative: 86-year-old male presents emergency room by private vehicle. Evidently he was being taken to an orthopedic appointment for follow-up on a back surgery when he was lethargic and poorly responsive. The nurse brought him by private vehicle to the emergency room as a walk-in. I did report he gotten Ativan or Xanax along with hydrocodone this morning. On arrival in the room patient is not in any respiratory distress but is very lethargic and poorly responsive. 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 Gout History of DVT (deep vein thrombosis) recurrent History of stress test Hyperglycemia Hypertension Hypertensive urgency Intractable back pain Lower limb ulcer, ankle Recurrent UTI Thoracic spine fracture Urethral stricture Surgical History H/O neck surgery H/O partial resection of colon due to cancer H/O total knee replacement right H/O transurethral resection of prostate History of bladder surgery History of cataract surgery History of cholecystectomy History of skin graft Family History Father , at age 65 Cancer lung Mother , at age 88 Alzheimer's dementia Social History Smoking and tobacco status: never smoked Alcohol intake: never Marital status: Current occupational status: retired Physical Exam Const: COMMON NORMALS: no acute distress GENERAL APPEARANCE: cooperative and comfortable HENMT: COMMON NORMALS: normocephalic, atraumatic and hearing grossly normal bilaterally HEAD & SCALP: normocephalic and atraumatic Neck/C-Spine: COMMON NORMALS: no JVD Resp: COMMON NORMALS: normal respiratory effort, No retractions, No use of accessory muscles and clear to auscultation bilaterally AUSCULTATION: clear to auscultation bilaterally Cardio: COMMON NORMALS: no JVD, regular rate, regular rhythm and No murmurs present (Cardio) RATE: regular rate RHYTHM: regular rhythm GI: COMMON NORMALS: Soft to palpation and No hepatosplenomegaly present AUSCULTATION: Yes normoactive bowel sounds PALPATION: Yes Soft to palpation, No Tenderness to palpation present (GI), No Guarding due to palpation present (GI) and Yes No hepatosplenomegaly present Extremity: COMMON NORMALS: normal to inspection, capillary refill normal, no clubbing, cyanosis or edema, no calf tenderness and no pedal edema Psych: THOUGHT CONTENT: No delusions Skin: COMMON NORMALS: no rashes or lesions noted GENERAL SKIN EXAM: no rashes or lesions noted Course Vital Signs: Vital signs: Vital Signs Temperature 98.2 F 04/11/21 08:36 Pulse Rate 78 04/11/21 12:37 Respiratory Rate 15 04/11/21 12:37 Blood Pressure 111/64 04/11/21 10:21 Pulse Oximetry 98 04/11/21 12:37 MDM - Altered Mental Status MDM Narrative: Medical decision making narrative: Patient symptoms resolved with administration of Narcan. He essentially returned to his baseline per the family is at the bedside. Radiographically appears to have a mild pneumonia but he is not hypoxic. Is appropriate at this point resume oral antibiotics and he can return to the long term. Lab Data: Labs: Lab Results 04/11/21 04/11/21 04/11/21 08:43 08:52 08:54 WBC 7.1 10^3/uL 10^3/ uL (4.0-10.0) RBC 2.95 10^6/uL L 10 ^6/uL (4.1-5.3) Hgb 11.6 g/dL L g/dL (11.7-16.6) Hct 32.5 % L % (42.0-52.0) MCV 110.2 fl H fl (80-94) MCH 39.3 pg H pg (28.0-34.0) MCHC 35.7 g/dL g/dL (30.0-36.0) RDW 14.8 % % (12.1-15.1) Plt Count 209 10^3/cmm 10^3 /cmm (130-400) MPV 12.0 fL H fL (7.4-10.4) Neut % (Auto) 71.8 % % Lymph % (Auto) 17.9 % % [place] % (Auto) 6.9 % % Eos % (Auto) 2.0 % % Baso % (Auto) 0.6 % % Neut # (Auto) 5.13 10^3/uL 10^3 /uL (1.8-7.7) Lymph # (Auto) 1.3 10^3/uL 10^3/ uL (0.8-4.8) [place] # (Auto) 0.5 10^3/uL 10^3/ uL (0.2-0.9) Eos # (Auto) 0.1 10^3/uL 10^3/ uL (0.0-0.8) Baso # (Auto) 0.0 10^3/uL 10^3/ uL (0.0-0.1) Nucleated RBC % (a uto) 4.6 % % Nucleated RBCs # 0.3 /100WBC /100W BC Specimen Type Arterial Sample Site Radial, left ABG pH 7.45 (7.35-7.45) ABG pCO2 35.3 mmHg mmHg (35-45) ABG pO2 136.0 mmHg H mmHg (80.0-100.0) ABG HCO3 24.4 mmol/L mmol/ L (22-26) ABG O2 Saturation > 100.0 ABG Base Excess 0.6 mmol/L mmol/L (-2.0-2.0) Luis Test Pos A-a O2 Gradient Not Reportable Hematocrit 32.1 % L % (42-52) Hgb O2 Saturation 98.1 % % (95-100) Carboxyhemoglobin 1.6 %THgb %THgb (0.4-20.1) Methemoglobin 0.3 % L % (0.4-1.5) Total Hemoglobin 10.5 g/dL L g/dL (14-18) Sodium 140.0 mmol/L mmol /L (131-143) Potassium 3.6 mmol/L mmol/L (3.5-5.0) Glucose 130.0 mg/dL H mg/ dL (70-115) Ionized Calcium 1.2 mmol/L mmol/L (1.1-1.4) O2 Delivery Device Nc O2 Liters/Min 5.0 % % [facility] ID Cak Chloride Carbon Dioxide Anion Gap BUN Creatinine GFR Calculation POC Glucose 113 mg/dL H mg/dL (70-110) Calculated Osmolal ity Lactic Acid Lactic Acid (Sepsi s) Calcium Total Bilirubin AST ALT Alkaline Phosphata se Creatine Kinase Troponin T Baselin e Troponin T 120 Min obey Delta Troponin T Total Protein Albumin Globulin Urine Color Urine Appearance Urine pH Ur Specific Gravit y Urine Protein Urine Glucose (UA) Urine Ketones Urine Blood Urine Nitrate Urine Bilirubin Urine Urobilinogen Ur Leukocyte Jesi ase Urine RBC Urine WBC Ur Squamous Epith Cells Amorphous Sediment Urine Bacteria Urine Yeast 04/11/21 04/11/21 04/11/21 08:54 08:54 09:08 WBC RBC Hgb Hct MCV MCH MCHC RDW Plt Count MPV Neut % (Auto) Lymph % (Auto) [place] % (Auto) Eos % (Auto) Baso % (Auto) Neut # (Auto) Lymph # (Auto) [place] # (Auto) Eos # (Auto) Baso # (Auto) Nucleated RBC % (a uto) Nucleated RBCs # Specimen Type Sample Site ABG pH ABG pCO2 ABG pO2 ABG HCO3 ABG O2 Saturation ABG Base Excess Luis Test A-a O2 Gradient Hematocrit Hgb O2 Saturation Carboxyhemoglobin Methemoglobin Total Hemoglobin Sodium 138 mmol/L mmol/L (136-145) Potassium 4.0 mmol/L mmol/L (3.5-5.1) Glucose 108 mg/dL mg/dL (65-115) Ionized Calcium O2 Delivery Device O2 Liters/Min [facility] ID Chloride 106 mmol/L mmol/L (98-107) Carbon Dioxide 22 mmol/L mmol/L (22-29) Anion Gap 14.0 (5-19) BUN 34 mg/dL H mg/dL (8-23) Creatinine 1.0 mg/dL mg/dL (0.7-1.2) GFR Calculation Not Reportable POC Glucose Calculated Osmolal ity 294 mOsm/kg mOsm/ kg (285-295) Lactic Acid 2.3 mmol/L H mmol /L (0.5-2.2) Lactic Acid (Sepsi s) Calcium 7.8 mg/dL L mg/dL (8.5-10.5) Total Bilirubin 1.4 mg/dL H mg/dL (0.15-1.2) AST 35 U/L U/L (0-40) ALT 23 U/L U/L (0-41) Alkaline Phosphata se 301 IU/L H IU/L (40-130) Creatine Kinase 36 U/L L U/L (39-308) Troponin T Baselin e 77 ng/L H ng/L (0-15) Troponin T 120 Min obey Delta Troponin T Total Protein 5.5 g/dL L g/dL (6.6-8.7) Albumin 2.5 g/dL L g/dL (3.5-5.2) Globulin 3.0 g/dL g/dL (1.3-4.6) Urine Color Urine Appearance Urine pH Ur Specific Gravit y Urine Protein Urine Glucose (UA) Urine Ketones Urine Blood Urine Nitrate Urine Bilirubin Urine Urobilinogen Ur Leukocyte Jesi ase Urine RBC Urine WBC Ur Squamous Epith Cells Amorphous Sediment Urine Bacteria Urine Yeast 04/11/21 04/11/21 04/11/21 09:55 11:25 11:25 WBC RBC Hgb Hct MCV MCH MCHC RDW Plt Count MPV Neut % (Auto) Lymph % (Auto) [place] % (Auto) Eos % (Auto) Baso % (Auto) Neut # (Auto) Lymph # (Auto) [place] # (Auto) Eos # (Auto) Baso # (Auto) Nucleated RBC % (a uto) Nucleated RBCs # Specimen Type Sample Site ABG pH ABG pCO2 ABG pO2 ABG HCO3 ABG O2 Saturation ABG Base Excess Luis Test A-a O2 Gradient Hematocrit Hgb O2 Saturation Carboxyhemoglobin Methemoglobin Total Hemoglobin Sodium Potassium Glucose Ionized Calcium O2 Delivery Device O2 Liters/Min [facility] ID Chloride Carbon Dioxide Anion Gap BUN Creatinine GFR Calculation POC Glucose Calculated Osmolal ity Lactic Acid Lactic Acid (Sepsi s) 1.9 mmol/L mmol/L (0.5-2.2) Calcium Total Bilirubin AST ALT Alkaline Phosphata se Creatine Kinase Troponin T Baselin e Troponin T 120 Min obey 67.64 ng/L H ng/L (0-15) Delta Troponin T -9.36 ABS# L ABS# (0-10) Total Protein Albumin Globulin Urine Color Yellow (Yellow) Urine Appearance Cloudy (CLEAR) Urine pH 5 (5-7) Ur Specific Gravit y 1.015 (1.005-1.030) Urine Protein 1+ H (Negative) Urine Glucose (UA) Norm (Normal) Urine Ketones Negative (Negative) Urine Blood 3+ H (Negative) Urine Nitrate Negative (Negative) Urine Bilirubin Neg (Negative) Urine Urobilinogen Norm mg/dL mg/dL (Negative) Ur Leukocyte Jesi ase 2+ H (Negative) Urine RBC 10-15 /hpf H /hpf (0-2) Urine WBC >100 /hpf H /hpf (0-5) Ur Squamous Epith Cells None /hpf /hpf (0-5) Amorphous Sediment Not Reportable Urine Bacteria 1+ /hpf H /hpf (NONE) Urine Yeast 2+ /hpf H /hpf Discharge Plan Discharge Patient Disposition: Home Clinical Impression: Delirium, drug-induced, Pneumonia Condition: Stable Prescriptions: New levofloxacin 750 mg tablet 750 mg PO DAILY 7 Days Qty: 7 RF: 0 No Action diphenoxylate-atropine [Lomotil] 2.5-0.025 mg tablet 1 tab PO Q6H PRN (Reason: Diarrhea) RF: 0 ascorbate calcium (vitamin C) 500 mg tablet 1,000 mg PO BID RF: 0 warfarin 5 mg tablet See Rx Instructions PO DAILY RF: 0 allopurinol 300 mg tablet 300 mg PO DAILY RF: 0 famotidine 20 mg tablet 20 mg PO BID RF: 0 azathioprine 50 mg tablet 50 mg PO DAILY RF: 0 methenamine hippurate 1 gram tablet 1 g PO BID Qty: 60 RF: 12 acetaminophen 500 mg Tablet 500 mg PO BEDTIME RF: 0 isosorbide mononitrate 20 mg Tablet 20 mg PO DAILY 30 Days Qty: 30 RF: 0 tamsulosin 0.4 mg Capsule 0.4 mg PO DAILY 30 Days Qty: 30 RF: 0 nitroglycerin 0.4 mg Tablet, Sublingual 0.4 mg sublingual Q5M PRN (Reason: Chest Pain) 30 Days Qty: 30 RF: 0 prednisone 10 mg Tablet 10 mg PO DAILY RF: 0 alprazolam 0.25 mg tablet 0.25 mg PO DAILY PRN (Reason: anxiety) RF: 0 acetaminophen [Aphen] 325 mg tablet 325 mg PO Q6H PRN (Reason: fever or pain) Qty: 30 RF: 0 Discharge Orders: Discharge ED (Routine); Ordered 04/11/21 Ordered By: Low Anrdea Referrals: Kamran Abdi MD [Primary Care Provider] - Discharge Diet: Usual diet Discharge Activity: Resume usual activity Patient Instructions: Opioid Safety Activity Restrictions/Additional Instructions: Antibiotics x7 days. Follow-up with primary caregiver within the next week. Follow-up with orthopedics as previously scheduled. Coding Level of Care Code ED [employer] Clerk for Dean Fwd Exam Comprehensive
[2021-04-11 09:41] VITALS: BP 105/55; PULSE 63; RESP 18; O2SAT 96
[2021-04-11 10:14] LABS: Add Urine Microscopic? YES; Bilirubin Urine Neg (Negative); Blood Urine 3+ (Negative); Glucose Urine UA Norm (Normal); Ketones Urine Negative (Negative); Leukocyte Esterase Urine 2+ (Negative); Nitrate Urine Negative (Negative); Protein Urine 1+ (Negative); Specific Gravity, Urine 1.015 (1.005-1.030); Urine Appearance Cloudy (CLEAR); Urine Color Yellow (Yellow); Urobilinogen Urine Norm (Negative); pH Urine 5 (5-7)
[2021-04-11 10:18] LABS: WBC Urine >100 /hpf (0-5)
[2021-04-11 10:19] LABS: Add Urine Culture? Yes; Bacteria Urine 1+ /hpf
[2021-04-11 10:21] VITALS: BP 111/64; PULSE 62; RESP 14; O2SAT 96
--- NOTE | 2021-04-11 10:44 | ECG_ITS ---
[facility] Test Date: 2021-04-11 Pat Name: Andi Rome Department: Room: Gender: Male [employer] Associate: : [id number] Requested By: Low Mcghee Order Number: [id number] Jossy MD: Cheikh Tavarez M.D. Measurements Intervals Barnum Rate: 61 P: -4 CA: 106 QRS: -16 QRSD: 99 T: 8 QT: 427 QTc: 432 Interpretive Statements SINUS RHYTHM WITH SHORT CA INTERVAL POSSIBLE RIGHT VENTRICULAR CONDUCTION DELAY [RSR (QR) IN V1/V2] VOLTAGE CRITERIA FOR LVH [MEETS CRITERIA IN ONE OF: R(aVL), S(V1), R(V5), R(V5/V6)+S(V1)] Compared to ECG 04/11/2021 08:39:17 Short CA interval now present Left ventricular hypertrophy now present Electronically Signed On 04-12-2021 17:46:20 [employer]OMOTIVE MECH[employer]ICAL ENGINEER by Cheikh Tavarez M.D. [email or web address]
[2021-04-11 10:58] LABS: Reflex Lactate Order REFLEX LACTIC ORDERD
[2021-04-11 12:03] LABS: Lactic Acid level (Lactate) 1.9 mmol/L (0.5-2.2)
[2021-04-11 12:05] LABS: Troponin 5 2HR 67.64 ng/L (0-15)
[2021-04-11 12:06] LABS: Troponin 5 2HR Delta -9.36 ABS# (0-10)
[2021-04-11 12:37] VITALS: PULSE 78; RESP 15; O2SAT 98
== END 2021-04-11 12:36 | disposition home or self-care (01) ==
PROVIDERS: Emergency Provider Family Medicine; PCP Family Medicine
DX: F13.921 Sedative, hypnotic or anxiolytic use, unspecified with intoxication delirium (principal); J18.9 Pneumonia, unspecified organism
CPT/HCPCS: 36415; 36416; 36600; 51701; 70450; 71045; 80051; 80053; 81001; 82330; 82550; 82805; 82962; 83605; 84484; 85025; 87086; 87106; 93005; 96361; 96374; 99284; J2310; J7030

== ENCOUNTER → 2021-04-18 13:14 | Outpatient (BNVA) | payer MEDICARE, OTHER, SELFPAY | PROVIDERS: PCP Family Medicine; Visit Provider Orthopaedic Surgery | DX: Z47.89 Encounter for other orthopedic aftercare (principal); M54.2 Cervicalgia; Z98.1 Arthrodesis status | CPT/HCPCS: 72072 ==